=== PATIENT | male | born 1985 | race Caucasian/White ===

== ENCOUNTER → 2016-04-28 | Outpatient (CLI) | payer OTHER ==
[2016-04-28 10:27] LABS: Basophils % (A) 1 %; CH 29.6; CHCM 34.2; Eosinophils # (A) 0.1 k/uL (0-0.7); Eosinophils % (A) 1 %; HCT 45.7 % (39.0-53.0); HGB 15.3 gm/dL (13.0-17.5); Luc # (Auto) 0.18; Luc % (Auto) 3; Lymphocytes # (A) 1.6 k/uL (1.0-4.8); Lymphocytes % (A) 23 %; MCH 29.2 pg (25.0-35.0); MCHC 33.6 g/dL (31.0-37.0); MCV 87.1 fL (80.0-100.0); Mean Platelet Volume 7.4; Monocytes # (A) 0.4 k/uL (0-1.0); Monocytes % (A) 6 %; Neutrophils # (A) 4.8 k/uL (1.3-7.7); Neutrophils % (A) 68 %; RBC 5.24 m/uL (4.30-5.90); RDW 12.5 % (11.5-15.5); WBC 7.2 k/uL (3.8-10.6); WBC (Perox) 7.65
[2016-04-28 10:42] LABS: ALT 54 U/L (21-72); AST 22 U/L (17-59); Alkaline Phosphatase 102 U/L (38-126); Anion Gap 14 mmol/L; Blood Urea Nitrogen 12 mg/dL (9-20); Calcium 9.6 mg/dL (8.4-10.2); Carbon Dioxide 26 mmol/L (22-30); Chloride 106 mmol/L (98-107); Cholesterol 136 mg/dL (<200); Glucose 97 mg/dL (74-99); HDL Cholesterol 38 mg/dL (40-60); Non-African American GFR(MDRD) >60 (>60 ml/min/1.73 sqM); Potassium 4.2 mmol/L (3.5-5.1); Sodium 146 mmol/L (137-145); Total Bilirubin 0.6 mg/dL (0.2-1.3); Total Protein 7.4 g/dL (6.3-8.2); Triglycerides 87 mg/dL (<150)
[2016-04-28 12:22] LABS: Hemoglobin A1C 4.6 % (4.2-6.1)
== END | disposition home or self-care (01) ==
LOC: LABWHC1 09:40
PROVIDERS: ATTEND Family Medicine
DX: Z00.00 Encounter for general adult medical examination without abnormal findings (principal)
CPT/HCPCS: 36415; 80053; 80061; 83036; 84443; 85025; 86677

== ENCOUNTER → 2017-09-12 | Outpatient (CLI) | payer OTHER ==
--- NOTE | 2017-09-12 16:37 | XR ---
EXAMINATION TYPE: XR cervical spine limited DATE OF EXAM: 09/12/2017 TECHNIQUE: 3 views submitted of cervical spine HISTORY: R52 cervical pain COMPARISON: None FINDINGS: The cervical spine is visualized in its entirety from C1 thru the top of T1 level, it is s atisfactory in alignment without evidence of acute fracture or dislocation. The pre-vertebral soft t issue appears within normal limits. The C1-C2 articulation is within normal limits on the open mouth view. IMPRESSION: normal cervical spine
== END | disposition home or self-care (01) ==
LOC: RADXRMAIN 14:01
PROVIDERS: ATTEND Family Medicine
DX: R52 Pain, unspecified (principal)
CPT/HCPCS: 72040

== ENCOUNTER 2018-04-10 06:52 | Day surgery (SDC) | payer OTHER ==
[2018-04-06 14:50] VITALS: BMI 23.1
[~2018-04-10 06:52] MED LIST: LACTATED RINGERS 1,000 ML IV SCH; LIDOCAINE 1% 20 ML VIAL (10MG/ML) FOR IV START INTRADERMA PRN
[2018-04-10 07:15] VITALS: RESP 16; TEMP 98
[2018-04-10] MEDS ORDERED: LIDOCAINE 1% INJ 10MG/ML (20 ML MDV) ONE (07:45)
[2018-04-10] MEDS ORDERED: PROPOFOL 10 MG/ML 20 ML VIAL IV ONE (07:45)
--- NOTE | 2018-04-10 07:47 | P.GSHP ---
History of Present Illness H&P Date: 04/10/18 Chief Complaint: GERD This is a 32-year-old male who presents today for EGD. He's had issues with GERD. 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 Past Anesthesia/Blood Transfusion Reactions: No Reported Reaction Smoking Status: Never smoker - Past Family History Mother Family Medical History: No Reported History Medications and Allergies Home Medications Medication Instructions Recorded Confirmed Type Omeprazole [PriLOSEC] 20 mg PO DAILY 04/21/16 04/10/18 History Allergies Allergy/AdvReac Type Severity Reaction Status Date / Time No Known Allergies Allergy Verified 04/10/18 07:07 Surgical - Exam Vital Signs Temp Pulse Resp BP Pulse Ox 98.0 F 92 16 157/82 98 04/10/18 07:11 04/10/18 07:11 04/10/18 07:11 04/10/18 07:11 04/10/18 07:11 - General well developed, no distress - Eyes PERRL - ENT normal pinna - Neck no masses - Respiratory normal expansion - Cardiovascular Rhythm: regular - Abdomen Abdomen: soft, non tender Assessment and Plan Assessment: GERD. We'll perform EGD.
--- NOTE | 2018-04-10 07:59 | P.OP ---
Date of Procedure: 04/10/18 Preoperative Diagnosis: GERD Postoperative Diagnosis: GERD Procedure(s) Performed: EGD Anesthesia: MAC Surgeon: Gab Navas Pathology: other (Antrum, esophagus) Condition: stable Disposition: PACU Description of Procedure: The patient's placed on the endoscopy table in the lateral position. He received IV sedation. The gastroscope placed oropharynx passed in the esophagus into the stomach. Scope was then placed through the pylorus. The first and second portion him appeared normal. The scope was then brought back the antrum and this was minimal inflamed a biopsies performed. The scope was then retroflexed the remainder of the stomach appeared normal. There was a moderate size hiatal hernia. The distal esophagus appeared inflamed. A biopsies performed. The GE junction was at 38 cm. The proximal esophagus appeared normal. The scope was withdrawn for patient.
[2018-04-10 08:09] VITALS: BP 109/70; PULSE 92
== END 2018-04-10 08:30 | disposition home or self-care (01) ==
LOC: ORWHC2ENDO 06:52
PROVIDERS: ATTEND Surgery
DX: K29.50 Unspecified chronic gastritis without bleeding (principal); K21.9 Gastro-esophageal reflux disease without esophagitis; K44.9 Diaphragmatic hernia without obstruction or gangrene; Z79.899 Other long term (current) drug therapy
CPT/HCPCS: 88305; 43239; J2001; J2704

== ENCOUNTER 2018-04-20 18:32 | Emergency (ER) | payer OTHER ==
[2018-04-20] MEDS ORDERED: ONDANSETRON 4 MG/2 ML VIAL IVP STA (19:55)
[2018-04-20] MEDS ORDERED: SODIUM CHLORIDE 0.9% 1,000 ML IV STA (19:55)
[2018-04-20] MEDS ORDERED: ACETAMINOPHEN IV (For NPO) 1,000 MG in EMPTY BAG 1 BAG IVPB STA (19:56)
--- NOTE | 2018-04-20 19:58 | ED ---
General Adult HPI - General Chief complaint: Abdominal Pain Stated complaint: rt sided pain Time Seen by Provider: 04/20/18 19:45 Source: patient, RN notes reviewed Mode of arrival: ambulatory Limitations: no limitations - History of Present Illness Initial comments: Patient is a 32-year-old male presented to the emergency room today with a chief complaint of right-sided abdominal pain over the last 3 days. States had decreased appetite with some nausea. Denies any vomiting. States had a difficult time with bowel movement. Patient states pains been increase in the past 3 days. States never had pain like this in the past. Describes it as sharp. Denies any other complaints or symptoms. Patient denies any recent fever , chills, shortness of breath, chest pain, back pain, vomiting, numbness or tingling, headaches or visual changes, or any other complaints. - Related Data Home Medications Medication Instructions Recorded Confirmed Omeprazole [PriLOSEC] 20 mg PO DAILY 04/21/16 04/20/18 Allergies Allergy/AdvReac Type Severity Reaction Status Date / Time No Known Allergies Allergy Verified 04/20/18 20:04 Review of Systems ROS Statement: Those systems with pertinent positive or pertinent negative responses have been documented in the HPI. ROS Other: All systems not noted in ROS Statement are negative. 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 Eye: There is normal conjunctiva bilaterally. No signs of icterus. Ears, nose, mouth and throat: There are moist mucous membranes and no oral lesions. Neck: The neck is supple, there is no tenderness or JVD. Cardiovascular: There is a regular rate and rhythm. No murmur, rub or gallop is appreciated. Respiratory: Lungs are clear to auscultation, respirations are non-labored, breath sounds are equal. No wheezes, stridor, rales, or rhonchi. Gastrointestinal: Abdomen soft on palpation. Patient has tenderness right side of the abdomen both upper and lower quadrants. No rebound, guarding or CVA tenderness. Musculoskeletal: Normal ROM, no tenderness. Neurological: A&O x 3. CN II-XII intact, There are no obvious motor or sensory deficits. Coordination appears grossly intact. Speech is normal. Skin: Skin is warm and dry and no rashes or lesions are noted. Psychiatric: Cooperative, appropriate mood & affect, normal judgment. Limitations: no limitations Course Vital Signs 04/20/18 04/20/18 18:36 21:20 Temperature 98 F 98.2 F Pulse Rate 91 97 Respiratory 18 16 Rate Blood Pressure 138/86 132/80 O2 Sat by Pulse 99 97 Oximetry Medical Decision Making - Medical Decision Making Patient examined at this time shows no signs of distress. Resting comfortably. Patient's abdomen is soft on reexamination. Patient labs been reviewed unremarkable. Vitals are stable. CT the abdomen and pelvis showing a normal appendix no other acute abnormalities. Results were discussed with patient. Patient is advised close follow-up the family doctor in the next 2 days returning if any symptoms increase or worsen. He states states understanding and is in agreement. - Lab Data Result diagrams: 04/20/18 20:37 04/20/18 20:37 Lab Results 04/20/18 04/20/18 04/20/18 Range/Units 20:35 20:37 20:37 WBC 8.8 (3.8-10.6) k/uL RBC 5.03 (4.30-5.90) m/uL Hgb 14.8 (13.0-17.5) gm/dL Hct 42.6 (39.0-53.0) % MCV 84.7 (80.0-100.0) fL MCH 29.5 (25.0-35.0) pg MCHC 34.8 (31.0-37.0) g/dL RDW 12.6 (11.5-15.5) % Plt Count 241 (150-450) k/uL Neutrophils % 76 % Lymphocytes % 18 % Monocytes % 4 % Eosinophils % 1 % Basophils % 0 % Neutrophils # 6.7 (1.3-7.7) k/uL Lymphocytes # 1.6 (1.0-4.8) k/uL Monocytes # 0.3 (0-1.0) k/uL Eosinophils # 0.1 (0-0.7) k/uL Basophils # 0.0 (0-0.2) k/uL Sodium 140 (137-145) mmol/L Potassium 3.8 (3.5-5.1) mmol/L Chloride 108 H (98-107) mmol/L Carbon Dioxide 26 (22-30) mmol/L Anion Gap 6 mmol/L BUN 10 (9-20) mg/dL Creatinine 0.93 (0.66-1.25) mg/dL Est GFR (CKD-EPI)AfAm >90 (>60 ml/min/1.73 sqM) Est GFR (CKD-EPI)NonAf >90 (>60 ml/min/1.73 sqM) Glucose 116 H (74-99) mg/dL Calcium 9.5 (8.4-10.2) mg/dL Total Bilirubin 0.3 (0.2-1.3) mg/dL AST 23 (17-59) U/L ALT 44 (21-72) U/L Alkaline Phosphatase 66 (38-126) U/L Total Protein 5.9 L (6.3-8.2) g/dL Albumin 3.6 (3.5-5.0) g/dL Amylase 45 (30-110) U/L Lipase 125 (23-300) U/L Urine Color Light Yellow Urine Appearance Clear (Clear) Urine pH 6.0 (5.0-8.0) Ur Specific Metcalfe 1.010 (1.001-1.035) Urine Protein Negative (Negative) Urine Glucose (UA) Negative (Negative) Urine Ketones Negative (Negative) Urine Blood Negative (Negative) Urine Nitrite Negative (Negative) Urine Bilirubin Negative (Negative) Urine Urobilinogen <2.0 (<2.0) mg/dL Ur Leukocyte Esterase Negative (Negative) Disposition Clinical Impression: Abdominal pain Disposition: HOME SELF-CARE Condition: Good Instructions: Abdominal Pain (ED) Additional Instructions: Please use medication as discussed. Please follow-up with family doctor in the next 2 days. Please return to emergency room if the symptoms increase or worsen or for any other concerns. Is patient prescribed a controlled substance at d/c from ED?: No Referrals: Pelon Yang MD [Primary Care Provider] - 1-2 days Time of Disposition: 21:34
[2018-04-20 20:53] LABS: Basophils % (A) 0 %; Eosinophils # (A) 0.1 k/uL (0-0.7); Eosinophils % (A) 1 %; HCT 42.6 % (39.0-53.0); HGB 14.8 gm/dL (13.0-17.5); Lymphocytes # (A) 1.6 k/uL (1.0-4.8); Lymphocytes % (A) 18 %; MCH 29.5 pg (25.0-35.0); MCHC 34.8 g/dL (31.0-37.0); MCV 84.7 fL (80.0-100.0); Mean Platelet Volume 7.9; Monocytes # (A) 0.3 k/uL (0-1.0); Monocytes % (A) 4 %; Neutrophils # (A) 6.7 k/uL (1.3-7.7); Neutrophils % (A) 76 %; Platelet Count 241 k/uL (150-450); RBC 5.03 m/uL (4.30-5.90); RDW 12.6 % (11.5-15.5); WBC 8.8 k/uL (3.8-10.6)
[2018-04-20 20:55] LABS: Appearance,Urine Clear (Clear); Bilirubin,Urine Negative (Negative); Blood,Urine Negative (Negative); Color,Urine Light Yellow; Glucose,Urine (UA) Negative (Negative); Ketones,Urine Negative (Negative); Leukocyte Esterase,Urine Negative (Negative); Nitrite,Urine Negative (Negative); Protein,Urine Negative (Negative); Urobilinogen,Urine <2.0 mg/dL (<2.0)
[2018-04-20 21:06] LABS: ALT 44 U/L (21-72); AST 23 U/L (17-59); Albumin 3.6 g/dL (3.5-5.0); Alkaline Phosphatase 66 U/L (38-126); Amylase 45 U/L (30-110); Anion Gap 6 mmol/L; Blood Urea Nitrogen 10 mg/dL (9-20); Calcium 9.5 mg/dL (8.4-10.2); Carbon Dioxide 26 mmol/L (22-30); Chloride 108 mmol/L (98-107); Glucose 116 mg/dL (74-99); Lipase 125 U/L (23-300); Potassium 3.8 mmol/L (3.5-5.1); Sodium 140 mmol/L (137-145); Total Bilirubin 0.3 mg/dL (0.2-1.3); Total Protein 5.9 g/dL (6.3-8.2)
--- NOTE | 2018-04-20 21:14 | CT ---
EXAMINATION TYPE: CT abdomen pelvis w con DATE OF EXAM: 04/20/2018 COMPARISON: None HISTORY: RLQ pain, hx of hernia CT DLP: 709 mGycm Automated exposure control for dose reduction was used. TECHNIQUE: Helical acquisition of images was performed from the lung bases through the pelvis. CONTRAST: Performed without Oral Contrast and with IV Contrast, patient injected with 100 mL of Isovue 300. FINDINGS: Lung bases are clear. There is no pleural effusion. Heart size is normal. There is no pericardial eff usion. There is small hiatal hernia. The remainder of the stomach is normal. Liver spleen pancreas gallbladd er appear normal. Bile ducts are not dilated. There is no adrenal mass. Kidneys show satisfactory con trast opacification. There is no hydronephrosis. Ureters are not dilated. There is no retroperitoneal adenopathy. Appendix appears normal. Bladder distends smoothly. There is no inguinal hernia. There is no free fluid in the pelvis. I see n o intestinal wall thickening. There are no dilated loops. There is no mesenteric edema. There is no e vidence of free air. Lumbar vertebra have normal alignment. Disc spaces are normal. Posterior elements are intact. There i s no compression fracture. Bony pelvis is intact. IMPRESSION: NEGATIVE CT SCAN OF THE ABDOMEN AND PELVIS. NORMAL APPENDIX. NO EVIDENCE OF A HERNIA.
[2018-04-20 21:21] VITALS: BP 132/80; PULSE 97; RESP 16; TEMP 98.2
== END 2018-04-20 22:02 | disposition home or self-care (01) ==
LOC: EC 18:32
DX: R10.9 Unspecified abdominal pain (principal); R11.0 Nausea; R63.8 Other symptoms and signs concerning food and fluid intake; K21.9 Gastro-esophageal reflux disease without esophagitis; Z79.899 Other long term (current) drug therapy
CPT/HCPCS: 36415; 80053; 82150; 83690; 85025; 81003; 74177; 99284; 96365; 96375; J2405; J0131; Q9967

== ENCOUNTER → 2018-05-03 | Outpatient (CLI) | payer OTHER ==
[2018-05-03 13:17] LABS: Basophils % (A) 1 %; Eosinophils # (A) 0.1 k/uL (0-0.7); Eosinophils % (A) 1 %; HCT 47.2 % (39.0-53.0); HGB 16.3 gm/dL (13.0-17.5); Lymphocytes % (A) 23 %; MCH 29.4 pg (25.0-35.0); MCHC 34.5 g/dL (31.0-37.0); MCV 85.1 fL (80.0-100.0); Mean Platelet Volume 7.7; Monocytes # (A) 0.5 k/uL (0-1.0); Monocytes % (A) 5 %; Neutrophils % (A) 69 %; Platelet Count 272 k/uL (150-450); RBC 5.55 m/uL (4.30-5.90); RDW 12.7 % (11.5-15.5); WBC 8.8 k/uL (3.8-10.6)
== END | disposition home or self-care (01) ==
LOC: LABPAT 11:56
PROVIDERS: ATTEND Surgery
DX: Z01.812 Encounter for preprocedural laboratory examination (principal); D64.9 Anemia, unspecified; K21.0 Gastro-esophageal reflux disease with esophagitis
CPT/HCPCS: 36415; 85025

== ENCOUNTER 2018-05-10 08:16 | Observation (INO) | payer OTHER ==
[~2018-05-10 08:16] MED LIST changes: +DEXAMETHASONE SOD PHOSPHATE 10 MG/ML 1 ML VIAL IV ONE; +HEPARIN SODIUM,PORCINE 5,000 UNIT/ML 1 ML VIAL SQ ONE; +HYDROmorphone 0.5 MG/0.5 ML SYRINGE IVP PRN; -LACTATED RINGERS 1,000 ML IV SCH; +MIDAZOLAM (PF) 2 MG/2 ML VIAL IV PRN; +ONDANSETRON 4 MG/2 ML VIAL IVP ONE; +SCOPOLAMINE 1.5MG/72HR PATCH TRANSDERM ONE; +ceFAZolin IN SWFI 2 GM/20 ML SYRINGE IVP ONE
[2018-05-10] MEDS: LACTATED RINGERS 1,000 ML IV SCH (09:32)
--- NOTE | 2018-05-10 10:38 | P.GSHP ---
History of Present Illness H&P Date: 05/10/18 Chief Complaint: GERD This a 33-year-old male who presents today for laparoscopic Tae location. He 's had issues with GERD. The patient has had long-standing problems with reflux esophagitis. The patient underwent recent EGD is found have evidence of esophagitis. Patient has been well informed on the procedure of laparoscopic Tae fundoplication. The patient is aware the risk of the conversion to the open procedure, risk of injury to the stomach, liver and spleen. The patient is also a risk of recurrent GERD and dysphagia symptoms. The patient understands there is a postoperative diet of full liquids for 2 weeks after surgery. 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 Past Anesthesia/Blood Transfusion Reactions: No Reported Reaction Past Alcohol Use History: None Reported - Past Family History Mother Family Medical History: No Reported History Medications and Allergies Home Medications Medication Instructions Recorded Confirmed Type Omeprazole [PriLOSEC] 20 mg PO QAM 04/21/16 05/10/18 History Allergies Allergy/AdvReac Type Severity Reaction Status Date / Time No Known Allergies Allergy Verified 05/10/18 09:13 Surgical - Exam Vital Signs Temp Pulse Resp BP Pulse Ox 98.3 F 91 18 138/87 95 05/10/18 09:02 05/10/18 09:02 05/10/18 09:02 05/10/18 09:02 05/10/18 09:02 - General well developed, no distress - Eyes PERRL - ENT normal pinna - Neck no masses - Respiratory normal expansion - Cardiovascular Rhythm: regular - Abdomen Abdomen: soft, non tender Assessment and Plan Assessment: GERD. We'll perform laparoscopic Tae fundal plication.
[2018-05-10] MEDS ORDERED: fentaNYL (PF) 50 MCG/ML 2 ML AMP ONE (10:41)
[2018-05-10] MEDS ORDERED: ROCURONIUM BROMIDE 10 MG/ML 10 ML VIAL IV ONE (10:41)
[2018-05-10] MEDS ORDERED: GLYCOPYRROLATE 0.2 MG/ML 2 ML VIAL ONE (10:41)
[2018-05-10] MEDS ORDERED: PROPOFOL 10 MG/ML 20 ML VIAL IV ONE (10:41)
[2018-05-10] MEDS ORDERED: NEOSTIGMINE 1 MG/ML 10 ML VIAL ONE (10:41)
[2018-05-10] MEDS ORDERED: SUCCINYLCHOLINE CHLORIDE 100 MG/5 ML SYR IV ONE (10:41)
[2018-05-10] MEDS ORDERED: LIDOCAINE 1% INJ 10MG/ML (20 ML MDV) ONE (10:41)
[2018-05-10] MEDS ORDERED: MIDAZOLAM 2 MG/2 ML VIAL ONE (10:41)
[2018-05-10] MEDS ORDERED: HYDROmorphone (PF) 1 MG/ML ONE (10:41)
[2018-05-10] MEDS ORDERED: BUPIVACAIN-EPI 0.25%-1:200,000 30 ML VIAL SQ ONE ×2 (11:08)
[2018-05-10] MEDS ORDERED: ONDANSETRON 4 MG/2 ML VIAL IVP PRN (11:38)
--- NOTE | 2018-05-10 11:42 | P.OP ---
Date of Procedure: 05/10/18 Preoperative Diagnosis: GERD Postoperative Diagnosis: GERD Procedure(s) Performed: Laparoscopic Tae fundal plication Anesthesia: DELMA Surgeon: Gab Navas Estimated Blood Loss (ml): 5 Pathology: none sent Condition: stable Disposition: PACU Description of Procedure: HThe patient was placed on the operating table in the supine position. The patient received general anesthesia. And was placed in dorsal lithotomy position. The patient was prepped and draped in the usual sterile fashion. The skin incision sites were anesthetized with 1% local Xylocaine. The skin was incised in the left periumbilical area and then using a blade less 5 mm trocar under direct visualization panel cavity was entered. After adequate insufflation the laparoscope was then placed into the peritoneal cavity. Next a 5 mm trochars placed in the right epigastric position. Another 5 millimeter trocar the right lateral position. Another 5 millimeter trocar in the left lateral position a 5 mm trocar is placed in the left epigastric position. And then the initial 5 mm trocar was exchanged for a 10 mm trocar. The left lateral lobe liver was retracted. The hernia was seen. The crural defect was then dissected using the Harmonic scissors device. A 360 crural dissection was performed the esophagus stomach was reduced back into the peritoneal Cavity. The crural defect was then closed using 2-0 Ethibond suture. Next the fundus of the stomach was mobilized using the Hodges scissors device. and then a 58-St Lucian bougie dilator was placed oropharynx passed into the esophagus and stomach the fundal plication wrap was then performed by grasping the fundus posteriorly and bringing it around the esophagus and stomach fundoplication was then performed using 2-0 Ethibond suture. Care was taken that the fundal location rested over top of the intra-abdominal esophagus. There was no injury seen to the stomach or esophagus. The dilator was then withdrawn. The abdomen was irrigated there is no bleeding seen. The trochars were then withdrawn and then skin incision sites were closed using 3-0 Monocryl suture Steri-Strips are applied. Patient thought procedure well and sent to recovery room in stable condition.
[2018-05-10] MEDS: MEPERIDINE 50 MG/ML SYRINGE IVP ONE ×2 (12:29→12:34)
[2018-05-10] MEDS ORDERED: diphenhydrAMINE 50 MG/ML 1 ML VIAL IVP ONE (12:34)
[2018-05-10 14:00] VITALS: BMI 22.9
[2018-05-10] MEDS ORDERED: LACTATED RINGERS 1,000 ML IV ONE (16:30)
[2018-05-10] MEDS: METOCLOPRAMIDE 5 MG/ML 2 ML VIAL IVP SCH ×2 (16:59→17:28)
[2018-05-10] MEDS: D5-0.45% NACL WITH KCL 20MEQ/L 1,000 ML IV SCH ×2 (16:59→17:26)
[2018-05-10] MEDS: HYDROmorphone 0.5 MG/0.5 ML SYRINGE IVP PRN ×2 (17:37→21:16)
[2018-05-10] MEDS: FAMOTIDINE 20 MG/2 ML VIAL IV SCH (21:17)
--- NOTE | 2018-05-10 21:21 | FL ---
SINGLE CONTRAST ESOPHAGRAM: CLINICAL HISTORY: 33-year-old male rule out leak/obstruction status post Tae fundoplication TECHNIQUE: Single contrast exam performed with 50 ml Isovue-370 contrast. Total fluoroscopy time: 1 minute. Total images: 17 FINDINGS: The patient swallowed oral contrast without difficulty or delay. However, the patient was instructed to take only 2 small swallows as there is a relatively severe obstruction at the GE junction. There is recurrent peristalsis and resulted in intraesophageal reflux in the distal esophagus. After a few minutes of waiting, a transient trace trickle of contrast is seen extending into the stomach. The kim unt of contrast traversing the GE junction is too small to assess for leak. Small amount of free air below the right hemidiaphragm. IMPRESSION: Relatively severe obstruction at the GE junction. The patient was instructed to stop after only 2 sma ll swallows. Unable to adequately assess for leak. Small amount of postsurgical free air on the right . Recommend repeat exam tomorrow after there has been time for postsurgical edema to decrease.
[2018-05-11] MEDS: HYDROmorphone 0.5 MG/0.5 ML SYRINGE IVP PRN ×8 (00:36→23:58)
[2018-05-11] MEDS: METOCLOPRAMIDE 5 MG/ML 2 ML VIAL IVP SCH ×5 (00:37→23:58)
[2018-05-11] MEDS: D5-0.45% NACL WITH KCL 20MEQ/L 1,000 ML IV SCH ×3 (00:41→18:12)
--- NOTE | 2018-05-11 06:04 | CONS ---
CONSULTATION SUBJECTIVE: A 33-year-old white male with GERD, status post Tae procedure, has some pressure in the chest. REVIEW OF SYSTEMS: Fourteen-point review of systems negative except for mentioned in HPI. PHYSICAL EXAM: CARDIOVASCULAR: S1, S2. LUNGS: Transmitted upper airway sounds. HEMATOLOGY: Negative Homans. PSYCH: Fair mood and affect. OPHTHALMOLOGIC: Pupils equal, round, reactive to light and accommodation. ASSESSMENT: Gastroesophageal reflux disease, status post Tae. Continue home medications. Possible discharge home in the morning. MMODL / IJN: [id number] /
[2018-05-11] MEDS: LACTATED RINGERS 1,000 ML IV SCH (07:28)
[2018-05-11] MEDS: FAMOTIDINE 20 MG/2 ML VIAL IV SCH ×2 (07:31→20:51)
[2018-05-11] MEDS: ENOXAPARIN 40 MG/0.4 ML SYRINGE SQ SCH (07:32)
[2018-05-11 07:56] LABS: Basophils % (A) 0 %; Eosinophils % (A) 0 %; HCT 41.8 % (39.0-53.0); HGB 14.1 gm/dL (13.0-17.5); Lymphocytes # (A) 0.9 k/uL (1.0-4.8); Lymphocytes % (A) 7 %; MCH 29.6 pg (25.0-35.0); MCHC 33.7 g/dL (31.0-37.0); MCV 87.8 fL (80.0-100.0); Mean Platelet Volume 7.6; Monocytes # (A) 0.7 k/uL (0-1.0); Monocytes % (A) 6 %; Neutrophils # (A) 10.5 k/uL (1.3-7.7); Neutrophils % (A) 87 %; Platelet Count 200 k/uL (150-450); RBC 4.76 m/uL (4.30-5.90); RDW 12.9 % (11.5-15.5); WBC 12.2 k/uL (3.8-10.6)
--- NOTE | 2018-05-11 10:05 | FL ---
EXAMINATION TYPE: FL esophagus cervic/pharynx DATE OF EXAM: 05/11/2018 LIMITED UGI-ESOPHAGRAM: CLINICAL HISTORY: Post Michele fundoplication, significant hesitancy gastroesophageal junction TECHNIQUE: Limited esophagram is performed utilizing Omnipaque 350. Fluoroscopy time: 36 seconds Images: 47 FINDINGS: The patient swallowed contrast without difficulty or delay. Contrast passes through the ga stroesophageal junction with only moderate hesitancy. There is emptying into the stomach. No evidence of extravasation is evident. Note is made of small amount of free air under the right diaphragm post surgical in nature. IMPRESSION: 1. Moderate hesitancy passing through the Michele fundoplication. 2. No extravasation evident. 3. Minimal free air under the right diaphragm.
[2018-05-11] MEDS ORDERED: SODIUM CHLORIDE 0.9% 1,000 ML IV ONE (10:15)
[2018-05-11] MEDS ORDERED: IPRATROPIUM-ALBUTEROL 3 ML NEB INHALATION STA (10:16)
--- NOTE | 2018-05-11 11:08 | P.PN ---
Subjective Progress Note Date: 05/11/18 CHIEF COMPLAINT: GERD, status post Tae fundoplication HISTORY OF PRESENT ILLNESS: 33-year-old male who underwent Tae fundoplication. POD #1. Patient underwent esophagram yesterday which revealed relatively severe obstruction to the GE junction. Possibly related to postsurgical edema. Patient repeat esophagram this morning with improvement. Patient is tolerating clear liquids. He reports occasional nausea. Passing flatus. Denies BM. Reports pain is tolerable. He has been ambulating. WBC 12.2. He remains tachycardic with a rate in the 110s. He is afebrile. PHYSICAL EXAM: VITAL SIGNS: Currently stable. GENERAL: Well-developed in no acute distress. HEENT: No sclera icterus. Extraocular movements grossly intact. Moist buccal mucosa. Head is atraumatic, normocephalic. Hears conversational speech. No nasal drainage. NECK: Supple without lymphadenopathy. CHEST: Non-labored respirations and equal bilateral excursions. CARDIOVASCULAR: Regular rate with regular rhythm. Palpable 2+ radial pulses. ABDOMEN: Soft. Nondistended. Surgical sites without drainage or signs of infection. MUSCULOSKELETAL: No clubbing, cyanosis or edema. NEUROLOGIC: No focal or lateralizing signs. Cranial nerves II through XII grossly intact. PSYCH: Alert and oriented x 3 SKIN: Well perfused. Good skin turgor. ASSESSMENT: 1. GERD, s/p Tae fundoplication, POD #1 2. Leukocytosis 3. Tachycardia, suspect secondary to atelectasis and/or dehydration PLAN: Continue clear liquid diet. 1L bolus, then continue IV fluids at 125cc/hr. Pulmonary toileting. Patient encouraged to use incentive spirometer 10 times an hour. Increase activity as tolerated. Pain control. Will repeat CBC in AM. Monitor tachycardia. Possible discharge home tomorrow. Nurse practitioner note has been reviewed by physician. Signing provider agrees with the documented findings, assessment, and plan of care. Objective - Vital Signs Vital signs: Vital Signs Temp 98.0 F 05/11/18 07:21 Pulse 118 H 05/11/18 07:22 Resp 18 05/11/18 07:22 BP 146/97 05/11/18 07:21 Pulse Ox 97 05/11/18 07:21 Intake & Output 05/10/18 05/11/18 05/11/18 18:59 06:59 18:59 Intake Total 1150 2900 Output Total 5 Balance 1145 2900 Weight 81 kg Intake: IV 1150 Intake, IV Titration 2000 Amount D5-0.45% NaCl with KCl 2000 20Meq/l 1,000 ml @ 125 mls/hr IV .Q8H [facility] Rx#: [id number] Oral 900 Output: Estimated Blood Loss 5 Other: Voiding Method Toilet Toilet Urinal # Voids 3 1 - Labs CBC & Chem 7: 05/11/18 06:54 Labs: Abnormal Lab Results - Last 24 Hours (Table) 05/11/18 Range/Units 06:54 WBC 12.2 H (3.8-10.6) k/uL Neutrophils # 10.5 H (1.3-7.7) k/uL Lymphocytes # 0.9 L (1.0-4.8) k/uL
[2018-05-11] MEDS ORDERED: SODIUM CHLORIDE 0.9% 500 ML 250 ML IV ONE (19:45)
[2018-05-12] MEDS: HYDROmorphone 0.5 MG/0.5 ML SYRINGE IVP PRN ×2 (03:40→06:32)
[2018-05-12] MEDS: D5-0.45% NACL WITH KCL 20MEQ/L 1,000 ML IV SCH ×2 (03:42→11:30)
[2018-05-12 06:29] VITALS: RESP 16
[2018-05-12] MEDS: METOCLOPRAMIDE 5 MG/ML 2 ML VIAL IVP SCH ×2 (06:32→13:10)
[2018-05-12] MEDS: LACTATED RINGERS 1,000 ML IV SCH (06:37)
[2018-05-12 08:25] LABS: Basophils % (A) 0 %; Eosinophils # (A) 0.1 k/uL (0-0.7); Eosinophils % (A) 1 %; HCT 41.2 % (39.0-53.0); HGB 13.5 gm/dL (13.0-17.5); Lymphocytes # (A) 1.1 k/uL (1.0-4.8); Lymphocytes % (A) 15 %; MCH 28.2 pg (25.0-35.0); MCHC 32.7 g/dL (31.0-37.0); MCV 86.1 fL (80.0-100.0); Mean Platelet Volume 6.8; Monocytes # (A) 0.6 k/uL (0-1.0); Monocytes % (A) 8 %; Neutrophils # (A) 5.7 k/uL (1.3-7.7); Neutrophils % (A) 74 %; Platelet Count 202 k/uL (150-450); RBC 4.79 m/uL (4.30-5.90); RDW 12.5 % (11.5-15.5); WBC 7.6 k/uL (3.8-10.6)
[2018-05-12] MEDS: HYDROcodone/APAP 5-325MG 1 EACH TAB PO PRN ×2 (09:38→14:30)
[2018-05-12] MEDS: ENOXAPARIN 40 MG/0.4 ML SYRINGE SQ SCH (09:39)
[2018-05-12] MEDS: FAMOTIDINE 20 MG/2 ML VIAL IV SCH (09:39)
--- NOTE | 2018-05-12 10:07 | P.PN ---
Subjective Progress Note Date: 05/12/18 Principal diagnosis: Hiatal hernia Patient doing better today. Tachycardia seems improved. Heart rate 101 on last check. Patient has no pain. He is taking some Dilaudid for his neck discomfort he states he has chronically in its related and exacerbated from the bed that he is in he states. He would like to go home today. Tolerating clears. Upper GI shows no leak. White blood cell count normal. Objective - Vital Signs Vital signs: Vital Signs Temp 98.0 F 05/12/18 06:28 Pulse 101 H 05/12/18 09:43 Resp 16 05/12/18 06:28 BP 128/86 05/12/18 06:30 Pulse Ox 95 05/12/18 06:28 Intake & Output 05/11/18 05/12/18 05/12/18 18:59 06:59 18:59 Intake Total 2125 Output Total 700 Balance 1425 Intake: IV 1000 D5-0.45% NaCl with KCl 1000 20Meq/l 1,000 ml @ 125 mls/hr IV .Q8H [facility] Rx#: [id number] Intake, IV Titration 1125 Amount D5-0.45% NaCl with KCl 875 20Meq/l 1,000 ml @ 125 mls/hr IV .Q8H [facility] Rx#: [id number] Sodium Chloride 0.9% 500 250 ml 250 ml @ 999 mls/hr IV .Q16M [facility] Rx#:[id number] Output: Urine 700 Other: Voiding Method Toilet Toilet # Voids 1 - Exam Abdomen: Soft, nontender, nondistended, incisions clean and dry - Labs CBC & Chem 7: 05/12/18 07:25 Assessment and Plan (1) Status post laparoscopic Tae fundoplication Narrative/Plan: Will plan discharge today if patient's heart rate stays in the low 100 range or lower. Continue Tae liquid diet. Follow-up with Dr. Navas 1 week. Current Visit: Yes Status: Acute Code(s): Z98.890 - OTHER SPECIFIED POSTPROCEDURAL STATES SNOMED Code(s): 241087317
[2018-05-12 13:56] VITALS: BP 142/93; PULSE 103; TEMP 98.2
--- NOTE | 2018-05-12 21:03 | PN ---
PROGRESS NOTE SUBJECTIVE: A white male comes in today status post Michele procedure. He has had tachycardia and hypertension for the last 2 days since surgery. Blood pressure is in the normal range now. Pulse rate is 100 to 103. He feels much better. OBJECTIVE: Cardiovascular S1, S2. Lungs clear. GI soft. ASSESSMENT: 1. Status post Michele. 2. Hypertension acceleration. 3. Tachycardia. All secondary to surgery. He is improving from medical standpoint. Cleared for discharge today. MMODL / IJN: [id number] /
== END 2018-05-12 16:30 | disposition home or self-care (01) ==
LOC: OR 08:16 → 4SSUR 12:50 → OR 22:15 → 4SSUR 22:16
PROVIDERS: ADMIT Surgery; ATTEND Surgery
DX: K21.0 Gastro-esophageal reflux disease with esophagitis (principal); K44.9 Diaphragmatic hernia without obstruction or gangrene; I10 Essential (primary) hypertension; R07.89 Other chest pain; R11.0 Nausea; R00.0 Tachycardia, unspecified; D72.829 Elevated white blood cell count, unspecified; Z79.899 Other long term (current) drug therapy
CPT/HCPCS: 94640; 85025 ×2; 74210 ×2; 43280; G0378 ×3; J1200; J1644; J1100; J2765 ×3; J2175; J2405 ×2; J1650 ×2; J1170 ×3; J0690; Q9967 ×2

== ENCOUNTER → 2018-10-11 | Outpatient (CLI) | payer OTHER ==
[2018-10-11 11:46] LABS: HCT 42.5 % (39.0-53.0); HGB 14.6 gm/dL (13.0-17.5); MCH 29.2 pg (25.0-35.0); MCHC 34.3 g/dL (31.0-37.0); MCV 85.1 fL (80.0-100.0); Platelet Count 320 k/uL (150-450); RDW 13.1 % (11.5-15.5); WBC 8.6 k/uL (3.8-10.6)
[2018-10-11 13:31] LABS: Erythrocyte Sedimentation Rate 4 mm/hr (0-15)
[2018-10-11 18:55] LABS: ALT 40 U/L (10-49); AST 26 U/L (14-35); African American GFR (CKD) 131.4 (60.0-200.0); Albumin/Globulin Ratio 2.14 (1.60-3.17); Alkaline Phosphatase 101 U/L (41-126); BUN/Creat Ratio 14.44 Ratio (12.00-20.00); C Reactive Protein <0.4 mg/dL (0.0-0.8); Calcium 9.7 mg/dL (8.7-10.3); Carbon Dioxide 24.3 mmol/L (21.6-31.8); Chloride 109 mmol/L (96-109); Globulin 2.1 g/dL (1.6-3.3); Glucose 88 mg/dL (70-110); Potassium 3.9 mmol/L (3.5-5.5); Sodium 141 mmol/L (135-145); Total Bilirubin 0.7 mg/dL (0.3-1.2); Total Protein 6.6 g/dL (6.2-8.2)
[2018-10-11 20:27] LABS: Gliadin AB IgA, Unit 0.7 U/mL
== END | disposition home or self-care (01) ==
LOC: LABWHC1 10:22
PROVIDERS: ATTEND Internal Medicine
DX: R19.4 Change in bowel habit (principal)
CPT/HCPCS: 36415; 80053; 83516; 83630; 83993; 84439; 84443; 85027; 85652; 86140; 87045; 87046; 87328; 87329

== ENCOUNTER 2018-11-22 06:58 | Day surgery (SDC) | payer OTHER ==
[2018-11-21 08:41] VITALS: BMI 21.5
[~2018-11-22 06:58] MED LIST changes: -DEXAMETHASONE SOD PHOSPHATE 10 MG/ML 1 ML VIAL IV ONE; -HEPARIN SODIUM,PORCINE 5,000 UNIT/ML 1 ML VIAL SQ ONE; -HYDROmorphone 0.5 MG/0.5 ML SYRINGE IVP PRN; +LACTATED RINGERS 1,000 ML IV SCH; -MIDAZOLAM (PF) 2 MG/2 ML VIAL IV PRN; -ONDANSETRON 4 MG/2 ML VIAL IVP ONE; -SCOPOLAMINE 1.5MG/72HR PATCH TRANSDERM ONE; -ceFAZolin IN SWFI 2 GM/20 ML SYRINGE IVP ONE
[2018-11-22] MEDS ORDERED: LACTATED RINGERS 1,000 ML IV ONE (07:05)
[2018-11-22] MEDS ORDERED: LIDOCAINE 1% INJ 10MG/ML (20 ML MDV) ONE (07:30)
[2018-11-22] MEDS ORDERED: PROPOFOL 10 MG/ML 20 ML VIAL IV ONE (07:30)
[2018-11-22 08:23] VITALS: RESP 17
--- NOTE | 2018-11-22 08:24 | P.PCN ---
Date of Procedure: 11/22/18 Description of Procedure: Brief history: Patient is a pleasant scheduled for an elective upper endoscopy as well as colonoscopy as a part of evaluation of esophageal dysphagia and change in bowel habits. The patient denies any reflux since Tae fundoplication but does report intermittent solid food dysphagia and solid taste in his mother in the mornings. Prior to Tae the patient underwent an EGD on 04/10/2018 with esophagitis and gastritis noted and biopsies negative for H. pylori. The patient also has 17 months of increase in bowel movements with 3-8 loose bowel movements daily previously baseline was 2 bowel movements per day. Does report some intermittent dark bowel movements but no gross blood noted. Patient also states he's had 20 pound weight loss since 04/2018 reports abdominal pain described as sharp and dull in quality in the upper abdomen lasting 30 minutes in duration. He was started on Bentyl therapy with some improvement. 2 uncles with colon cancer and 1 paternal uncle with ulcerative colitis. Procedure performed: Esophagogastroduodenoscopy with biopsy Colonoscopy with biopsy Estimated blood loss: Minimal. Preoperative diagnosis: Anesthesia: MAC Procedure: After informed consent was obtained from the patient was brought into the endoscopy unit and IV sedation was administered by anesthesia under continuous monitoring. Initially upper endoscopy was done. The Olympus GF 190 video endoscope was inserted inserted into the mouth and esophagus intubated without any difficulty and was gradually advanced into the stomach and duodenum and carefully examined. The bulb and second part of the duodenum appeared normal, with biopsies taken. The scope was then withdrawn into the stomach adequately insufflated with air and upon careful examination the antrum and body, cardia and fundus appeared normal, except for some mild scattered erythema and linear fashion in the antrum and body suggestive of mild gastritis with biopsies taken. The scope was then withdrawn into the esophagus. The GE junction was located at 40 cm to the incisors, with anatomy consistent with prior Tae fundoplication noted. It appeared regular with no erythema erosions or ulcerations. Rest of the esophagus appeared normal. Patient tolerated the procedure well. At this time the patient continued to remain sedation. Initial digital rectal examination was normal. Olympus CF 190 video colonoscope was then inserted into the rectum and gradually advanced to the cecum without any difficulty. Careful examination was performed as the scope was gradually being withdrawn. The prep was excellent. The terminal ileum was intubated and appeared normal with biopsies taken. The cecum, ascending colon, transverse colon, descending colon, sigmoid colon and rectum appeared normal, with biopsies of the right colon and left colon. Retroflexion was performed in the rectum and no lesions were noted for mild internal hemorrhoids. Patient tolerated the procedure well. Impression: 1. No esophageal erythema, erosions or other findings to explain dysphagia. Mild gastritis antrum and body, biopsied. Duodenal biopsies. 2. Normal-appearing terminal ileum and colon from the rectum to cecum, with biopsies of the terminal ileum, right colon and left colon. Mild internal hemorrhoids. Recommendations: Findings of this examination were discussed with the patient as well as his aunt. Okay to resume diet. Okay to continue current medical management with dicyclomine and loperamide as needed. Await pathology from biopsies. Follow up in gastroenterology clinic as previously scheduled.
[2018-11-22 08:41] VITALS: BP 129/82; PULSE 77
== END 2018-11-22 09:16 | disposition home or self-care (01) ==
LOC: ORWHC2ENDO 06:58
PROVIDERS: ATTEND Internal Medicine
DX: R13.10 Dysphagia, unspecified (principal); K29.50 Unspecified chronic gastritis without bleeding; K64.8 Other hemorrhoids; R19.4 Change in bowel habit
CPT/HCPCS: 88305; 45380; 43239; J2001; J2704

== ENCOUNTER 2019-02-05 18:15 | Emergency (ER) | payer OTHER ==
[2019-02-05 18:29] VITALS: RESP 20
--- NOTE | 2019-02-05 19:08 | ED ---
General Adult HPI - General Chief complaint: Upper Respiratory Infection Stated complaint: Cough, sore throat Time Seen by Provider: 02/05/19 18:56 Source: patient, RN notes reviewed Mode of arrival: ambulatory Limitations: no limitations - History of Present Illness Initial comments: 33-year-old male with a past medical history of GERD, Tae fundoplication presents to the emergency department for a chief complaint of sore throat. Patient states he has had a sore throat for 4 days. States he is able to swallow solids and liquids but it is painful. States he also has some generalized neck stiffness as well Denies any fevers or chills. Denies any headaches. Patient admits to a cough for the past 4 days as well. Denies smoking. Denies productivity of cough. Denies shortness of breath or chest pain.Patient has no other complaints at this time including shortness of breath, chest pain, abdominal pain, nausea or vomiting, headache, or visual changes. - Related Data Home Medications Medication Instructions Recorded Confirmed No Known Home Medications 10/30/18 11/21/18 Allergies Allergy/AdvReac Type Severity Reaction Status Date / Time No Known Allergies Allergy Verified 02/05/19 18:29 Review of Systems ROS Statement: Those systems with pertinent positive or pertinent negative responses have been documented in the HPI. ROS Other: All systems not noted in ROS Statement are negative. Past Medical History Past Medical History: GERD/Reflux Additional Past Medical History / Comment(s): GERD RESOLVED, constipation & diarrhea. History of Any Multi-Drug Resistant Organisms: None Reported Past Surgical History: No Surgical Hx Reported Additional Past Surgical History / Comment(s): SARAH FUNDOPLASTY. 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 Absent: scleral icterus, conjunctival injection, periorbital swelling ENT exam: Present: normal exam, mucous membranes moist, TM's normal bilaterally, normal external ear exam. Absent: normal oropharynx (Erythematous, no tonsillar exudates, uvula is midline, no evidence of abscess) Neck exam: Present: normal inspection, full ROM. Absent: tenderness, meningismus (Patient is able to fully flex neck, negative Kernig, negative Brudzinski.), lymphadenopathy Respiratory exam: Present: normal lung sounds bilaterally. Absent: respiratory distress, wheezes, rales, rhonchi, stridor Cardiovascular Exam: Present: regular rate, normal rhythm, normal heart sounds. Absent: systolic murmur, diastolic murmur, rubs, gallop, clicks Neurological exam: Present: alert Course Vital Signs 02/05/19 02/05/19 18:27 19:12 Temperature 99 F Pulse Rate 111 H Respiratory 20 20 Rate Blood Pressure 128/79 O2 Sat by Pulse 98 Oximetry Medical Decision Making - Medical Decision Making Strep is negative. Chest x-ray shows no acute process. Soft tissue neck x-ray shows mild narrowing of the upper trachea. Therefore CT was obtained which shows an incidental right thyroid nodule. Otherwise no acute process. Patient likely has a viral pharyngitis and upper rest for infection. Will be discharged home as he is stable at this time. Strep culture pending. He'll return if he has any worsening symptoms.I discussed this case with attending Dr. Nunez who agrees with this assessment and treatment plan. - Lab Data Lab Results 02/05/19 Range/Units 19:05 Group A Strep Rapid Negative (Negative) Disposition Clinical Impression: Pharyngitis, Thyroid nodule Disposition: HOME SELF-CARE Condition: Good Instructions (If sedation given, give patient instructions): Pharyngitis (ED) Additional Instructions: Please follow up with primary care in 1-2 days for sore throat as well as thyroid nodule. Return to the emergency department if you have any worsening symptoms. Is patient prescribed a controlled substance at d/c from ED?: No Referrals: Ramya Hernandez MD [REFERRING] - 1-2 days Time of Disposition: 21:59
--- NOTE | 2019-02-05 20:25 | XR ---
EXAMINATION: XR chest 2V DATE AND TIME: 02/05/2019 7:20 PM CLINICAL INDICATION: Sore throat; cough TECHNIQUE: Departmental protocol COMPARISON: 08/30/2010 FINDINGS: The lungs are clear. The pleural spaces are negative. The cardiac silhouette is not enlarged. The remainder of the mediastinal silhouette is unremarkable. The skeletal structures and soft tissues are negative for acute findings. IMPRESSION: NO ACUTE PROCESS.
--- NOTE | 2019-02-05 20:29 | XR ---
EXAMINATION TYPE: XR soft tissue neck - 2 views DATE OF EXAM: 02/05/2019 COMPARISON: 09/12/2017 HISTORY: Sore throat and cough TECHNIQUE: Soft tissue technique - AP and lateral views FINDINGS: The epiglottis and aryepiglottic folds are unremarkable on the lateral view. On the AP view there is steepling of the upper trachea, suggesting the possibility of relatively mild tracheal inflammatory change. IMPRESSION: Mild narrowing of the upper trachea suggested on the AP view.
[2019-02-05] MEDS ORDERED: IBUPROFEN 600 MG TAB PO STA (20:35)
--- NOTE | 2019-02-05 21:43 | CT ---
EXAMINATION TYPE: CT soft tissue neck wo con DATE OF EXAM: 02/05/2019 HISTORY: Sore throat COMPARISON: Radiographs 02/05/2019 CT DLP: 240.5 mGycm. Automated Exposure Control for Dose Reduction was Utilized. TECHNIQUE: Departmental protocol. FINDINGS: The epiglottis and aryepiglottic folds have normal appearance. The supraglottic airway has normal appearance, and the infraglottic airway has normal appearance. There is no suprahyoid or infrahyoid adenopathy. There is no suprahyoid or infrahyoid soft tissue neck mass or mass effect. Skeletal structures are unremarkable. Incidental finding: There is a 2 cm smoothly marginated but diffusely hypodense nodule is noted withi n the right thyroid parenchyma, for which follow-up nonurgent thyroid ultrasound is recommended for c haracterization. IMPRESSION: 1. NO ACUTE PROCESS. 2. INCIDENTAL RIGHT THYROID NODULE.
[2019-02-05 22:15] VITALS: BP 132/56; PULSE 98; TEMP 99.1
== END 2019-02-05 22:05 | disposition home or self-care (01) ==
LOC: EC 18:15
DX: J02.9 Acute pharyngitis, unspecified (principal); E04.1 Nontoxic single thyroid nodule
CPT/HCPCS: 70360; 70490; 71046; 87081; 87430; 99284

== ENCOUNTER 2019-03-19 13:27 | Emergency (ER) | payer OTHER ==
[2019-03-19 13:41] VITALS: RESP 18; TEMP 99.9
--- NOTE | 2019-03-19 13:53 | ED ---
General Adult HPI - General Chief complaint: Recheck/Abnormal Lab/Rx Stated complaint: Drank washer fluid Time Seen by Provider: 03/19/19 13:40 Source: patient, RN notes reviewed, old records reviewed Mode of arrival: ambulatory Limitations: no limitations - History of Present Illness Initial comments: This is a 33-year-old male who presents emergency department stating that he actually drank some windshield wiper fluid. Patient states he had some wi ndshield wiper fluid and a bottle because his windshield wiper fluid in the car was frozen and he was using it to splash on the window when it was cold out. Patient states today he forgot about that and drank from the bottle. Patient states he drank less than a shot glass full of fluid and he spent the rest out. Patient states she's had no symptoms since but he wanted to get checked out. Patient denies any difficulty breathing or chest pain. Patient denies any abdominal pain patient denies any nausea vomiting. Patient denies any dizziness or lightheadedness. Patient denies trying to harm himself he denies any suicidal ideations. - Related Data Home Medications Medication Instructions Recorded Confirmed No Known Home Medications 10/30/18 03/19/19 Allergies Allergy/AdvReac Type Severity Reaction Status Date / Time No Known Allergies Allergy Verified 03/19/19 14:53 Review of Systems ROS Statement: Those systems with pertinent positive or pertinent negative responses have been documented in the HPI. ROS Other: All systems not noted in ROS Statement are negative. Past Medical History Past Medical History: GERD/Reflux Additional Past Medical History / Comment(s): GERD RESOLVED, constipation & diarrhea. History of Any Multi-Drug Resistant Organisms: None Reported Past Surgical History: No Surgical Hx Reported Additional Past Surgical History / Comment(s): SARAH FUNDOPLASTY. 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 Patient is nontoxic and well- hydrated and is in no acute distress. ENT: Neck is soft and supple. No significant lymphadenopathy is noted. Oropharynx is clear. Moist mucous membranes. Neck has full range of motion without eliciting any pain. EYES: The sclera were anicteric and conjunctiva were pink and moist. Extraocular movements were intact and pupils were equal round and reactive to light. Eyelids were unremarkable. PULMONARY: Unlabored respirations. Good breath sounds bilaterally. No audible rales rho nchi or wheezing was noted. CARDIOVASCULAR: There is a regular rate and rhythm without any murmurs gallops or rubs. ABDOMEN: Soft and nontender with normal bowel sounds. SKIN: Skin is clear with no lesions or rashes and otherwise unremarkable. NEUROLOGIC: Patient is alert and oriented x3. Cranial nerves II through XII are grossly intact. Motor and sensory are also intact. Normal speech, volume and content. Symmetrical smile. MUSCULOSKELETAL: Normal extremities with adequate strength and full range of motion. LYMPHATICS: No significant lymphadenopathy is noted PSYCHIATRIC: Normal psychiatric evaluation. She denies any suicidal ideations or any ideas of wanting to harm himself. Limitations: no limitations Course Vital Signs 03/19/19 03/19/19 13:37 15:22 Temperature 99.9 F H Pulse Rate 117 H 100 Respiratory 18 18 Rate Blood Pressure 149/102 121/81 O2 Sat by Pulse 99 98 Oximetry Medical Decision Making - Medical Decision Making Patient's EKG shows normal sinus rhythm at 80 bpm MD interval is on a 42 QRS is 60 QT interval 318 QTC is 384. Patient is not acidotic. New. Patient remains asymptomatic for 3 hours he was in the emergency department. - Lab Data Result diagrams: 03/19/19 14:34 Lab Results 03/19/19 Range/Units 14:34 Sodium 139 (137-145) mmol/L Potassium 4.5 (3.5-5.1) mmol/L Chloride 110 H (98-107) mmol/L Carbon Dioxide 22 (22-30) mmol/L Anion Gap 7 mmol/L BUN 11 (9-20) mg/dL Creatinine 0.96 (0.66-1.25) mg/dL Est GFR (CKD-EPI)AfAm >90 (>60 ml/min/1.73 sqM) Est GFR (CKD-EPI)NonAf >90 (>60 ml/min/1.73 sqM) Glucose 108 H (74-99) mg/dL Calcium 9.1 (8.4-10.2) mg/dL Total Bilirubin 0.5 (0.2-1.3) mg/dL AST 25 (17-59) U/L ALT 38 (21-72) U/L Alkaline Phosphatase 61 (38-126) U/L Total Protein 5.7 L (6.3-8.2) g/dL Albumin 3.5 (3.5-5.0) g/dL Disposition Clinical Impression: Accidental ingestion of substance Disposition: HOME SELF-CARE Condition: Good Additional Instructions: Patient should return if there are any symptoms at all. Is patient prescribed a controlled substance at d/c from ED?: No Referrals: Pelon Yang MD [Primary Care Provider] - 1-2 days Time of Disposition: 16:24
[2019-03-19 14:55] LABS: ALT 38 U/L (21-72); AST 25 U/L (17-59); African American GFR (CKD) >90 (>60 ml/min/1.73 sqM); Albumin 3.5 g/dL (3.5-5.0); Alkaline Phosphatase 61 U/L (38-126); Anion Gap 7 mmol/L; Blood Urea Nitrogen 11 mg/dL (9-20); Calcium 9.1 mg/dL (8.4-10.2); Carbon Dioxide 22 mmol/L (22-30); Chloride 110 mmol/L (98-107); Glucose 108 mg/dL (74-99); Non-African American GFR(CKD) >90 (>60 ml/min/1.73 sqM); Potassium 4.5 mmol/L (3.5-5.1); Sodium 139 mmol/L (137-145); Total Bilirubin 0.5 mg/dL (0.2-1.3); Total Protein 5.7 g/dL (6.3-8.2)
[2019-03-19 15:24] VITALS: BP 121/81; PULSE 100
== END 2019-03-19 16:34 | disposition home or self-care (01) ==
LOC: EC 13:27
DX: T65.891A Toxic effect of other specified substances, accidental (unintentional), initial encounter (principal)
CPT/HCPCS: 36415; 80053; 93005; 99284

== ENCOUNTER → 2019-04-08 | Outpatient (CLI) | payer OTHER ==
--- NOTE | 2019-04-08 15:39 | NM ---
EXAMINATION TYPE: NM hepatobiliary w CCK DATE OF EXAM: 04/08/2019 COMPARISON: NONE HISTORY: Chronic cholecystitis TECHNIQUE: After the intravenous administration of 4.1 mCi Tc 99m Mebrofenin hepatobiliary scintigrap hy is performed. Immediate images post injection. FINDINGS: There is satisfactory initial accumulation of tracer by the liver. The gallbladder is visualized wit hin 4 minutes. The small bowel activity is noted within 20 minutes. At one hour CCK was administere d, patient was injected with 1.6 mcg of Kinevac, and gallbladder ejection fraction is calculated at 9 8 %, above the upper limit of normal range. Therefore there is no scintigraphic evidence of cystic o r common bile duct obstruction to suggest acute cholecystitis. IMPRESSION: Elevated gallbladder ejection fraction may be indicative of hyper dynamic gallbladder
== END | disposition home or self-care (01) ==
LOC: RADNMMAIN 12:42
PROVIDERS: ATTEND Surgery
DX: K81.1 Chronic cholecystitis (principal)
CPT/HCPCS: 78227; A9537

== ENCOUNTER 2019-04-10 10:57 | Day surgery (SDC) | payer OTHER ==
[2019-04-08 09:23] VITALS: BMI 21.5
[~2019-04-10 10:57] MED LIST changes: -LIDOCAINE 1% 20 ML VIAL (10MG/ML) FOR IV START INTRADERMA PRN
[2019-04-10] MEDS ORDERED: LIDOCAINE 1% 20 ML VIAL (10MG/ML) FOR IV START INTRADERMA ONE (11:27)
[2019-04-10] MEDS ORDERED: LACTATED RINGERS 1,000 ML IV ONE (11:27)
[2019-04-10] MEDS ORDERED: PROPOFOL 10 MG/ML 20 ML VIAL IV ONE (12:38)
--- NOTE | 2019-04-10 12:44 | P.GSHP ---
History of Present Illness H&P Date: 04/10/19 Chief Complaint: epigastric pain, dysphagia this a 33-year-old male who presents today for EGD. He's had complaints of dysphagia and epigastric pain. Past Medical History Past Medical History: GERD/Reflux Additional Past Medical History / Comment(s): GERD RESOLVED, Hx. of constipation & diarrhea. History of Any Multi-Drug Resistant Organisms: None Reported Past Surgical History: No Surgical Hx Reported Additional Past Surgical History / Comment(s): SARAH FUNDOPLASTY ,Tumor removal from neck as a child, colonoscopy. Past Anesthesia/Blood Transfusion Reactions: No Reported Reaction Smoking Status: Never smoker - Past Family History Mother Family Medical History: No Reported History Medications and Allergies Home Medications Medication Instructions Recorded Confirmed Type No Known Home Medications 10/30/18 04/08/19 History Allergies Allergy/AdvReac Type Severity Reaction Status Date / Time No Known Allergies Allergy Verified 04/08/19 10:08 Surgical - Exam - General well developed, well nourished, no distress - Eyes PERRL - ENT normal pinna - Neck no masses - Respiratory normal expansion - Cardiovascular Rhythm: regular - Abdomen Abdomen: soft, non tender Assessment and Plan Assessment: epigastric pain, dysphagia. We'll perform EGD.
--- NOTE | 2019-04-10 12:49 | P.OP ---
Date of Procedure: 04/10/19 Preoperative Diagnosis: dysphagia Postoperative Diagnosis: antral gastritis Procedure(s) Performed: EGD Anesthesia: MAC Surgeon: Gab Navas Pathology: other (antrum) Condition: stable Disposition: PACU Description of Procedure: patient's placed on the endoscopy table in the lateral position. He received IV sedation. The gastroscope placed oropharynx and passed in the esophagus and into the stomach. Scope was placed through the pylorus. The first and second portion of the duodenum. Normal. Scope was then brought back the antrum and this appeared mildly inflamed. A biopsies performed. The scope was unretroflexed and remainder some appeared normal. There is no significant hiatal hernia. The GE junction was at 47 is. The distal esophagus. Normal. The proximal esophagus. Normal. Scope was withdrawn for patient.
[2019-04-10 13:09] VITALS: RESP 16
[2019-04-10 13:24] VITALS: BP 122/79; PULSE 73
== END 2019-04-10 13:28 | disposition home or self-care (01) ==
LOC: ORWHC2ENDO 10:57
PROVIDERS: ATTEND Surgery
DX: K29.50 Unspecified chronic gastritis without bleeding (principal); Z87.19 Personal history of other diseases of the digestive system; Z98.890 Other specified postprocedural states
CPT/HCPCS: 88305; 43239; J2704

== ENCOUNTER 2019-04-10 23:05 | Emergency (ER) | payer OTHER ==
[2019-04-10 23:10] VITALS: RESP 18; TEMP 98.1
[2019-04-10] MEDS ORDERED: KETOROLAC 30 MG/ML 1 ML VIAL IVP STA (23:32)
[2019-04-10] MEDS ORDERED: SODIUM CHLORIDE 0.9% 1,000 ML IV STA (23:32)
[2019-04-11 00:12] LABS: Basophils # (A) 0.1 k/uL (0-0.2); Basophils % (A) 1 %; Eosinophils # (A) 0.1 k/uL (0-0.7); Eosinophils % (A) 1 %; HCT 46.7 % (39.0-53.0); HGB 16.2 gm/dL (13.0-17.5); Lymphocytes # (A) 2.4 k/uL (1.0-4.8); Lymphocytes % (A) 19 %; MCH 30.1 pg (25.0-35.0); MCHC 34.7 g/dL (31.0-37.0); MCV 86.7 fL (80.0-100.0); Mean Platelet Volume 8.7; Monocytes # (A) 0.5 k/uL (0-1.0); Monocytes % (A) 4 %; Neutrophils # (A) 9.5 k/uL (1.3-7.7); Neutrophils % (A) 74 %; Platelet Count 303 k/uL (150-450); RBC 5.39 m/uL (4.30-5.90); RDW 12.4 % (11.5-15.5); WBC 12.8 k/uL (3.8-10.6)
[2019-04-11 00:20] LABS: Appearance,Urine Clear (Clear); Bilirubin,Urine Negative (Negative); Blood,Urine Negative (Negative); Color,Urine Light Yellow; Glucose,Urine (UA) Negative (Negative); Ketones,Urine Negative (Negative); Leukocyte Esterase,Urine Negative (Negative); Nitrite,Urine Negative (Negative); PH, Urine 5.5 (5.0-8.0); Protein,Urine Negative (Negative); Specific Gravity,Urine 1.004 (1.001-1.035); Urobilinogen,Urine <2.0 mg/dL (<2.0)
[2019-04-11 00:21] LABS: ALT 33 U/L (4-49); AST 26 U/L (17-59); African American GFR (CKD) >90 (>60 ml/min/1.73 sqM); Albumin 4.4 g/dL (3.5-5.0); Alkaline Phosphatase 72 U/L (38-126); Amylase 50 U/L (30-110); Anion Gap 7 mmol/L; Blood Urea Nitrogen 11 mg/dL (9-20); Carbon Dioxide 26 mmol/L (22-30); Chloride 107 mmol/L (98-107); Glucose 100 mg/dL (74-99); Non-African American GFR(CKD) >90 (>60 ml/min/1.73 sqM); Potassium 3.8 mmol/L (3.5-5.1); Sodium 140 mmol/L (137-145); Total Bilirubin 0.5 mg/dL (0.2-1.3); Total Protein 6.8 g/dL (6.3-8.2)
--- NOTE | 2019-04-11 00:22 | ED ---
Abdominal Pain HPI - General Chief Complaint: Abdominal Pain Stated Complaint: Abd Pain Time Seen by Provider: 04/10/19 23:18 Source: patient Mode of arrival: ambulatory Limitations: no limitations - History of Present Illness Initial Comments: patient is a 33-year-old male presenting to emergency Department with complaints of right upper quadrant pain has been increasing over the past 3 hours. Patient recently had a HIDA scan performed 2 days ago and is awaiting the results and discuss options with Dr. Navas. Patient also had an upper scope performed today with Dr. Navas which showed no acute abnormalities. She states this of bright upper quadrant pain started suddenly prexy 3 hours ago and has been consistent. Patient feels like the pain has been increasing. Patient denies fever, chills, nausea, vomiting, diarrhea. Patient has no other complaints at this time. Patient did not take anything for pain. Upon arrival to the ER, aimee madden's BP is slightly elevated at 162/105, slightly tachycardia at 113, rest of vitals normal. - Related Data Home Medications Medication Instructions Recorded Confirmed No Known Home Medications 10/30/18 04/10/19 Allergies Allergy/AdvReac Type Severity Reaction Status Date / Time No Known Allergies Allergy Verified 04/10/19 23:10 Review of Systems ROS Statement: Those systems with pertinent positive or pertinent negative responses have been documented in the HPI. ROS Other: All systems not noted in ROS Statement are negative. Past Medical History Past Medical History: GERD/Reflux Additional Past Medical History / Comment(s): GERD RESOLVED, Hx. of constipation & diarrhea. History of Any Multi-Drug Resistant Organisms: None Reported Past Surgical History: No Surgical Hx Reported Additional Past Surgical History / Comment(s): SARAH FUNDOPLASTY ,Tumor removal from neck as a child, colonoscopy. Past Anesthesia/Blood Transfusion Reactions: No Reported Reaction Past Psychological History: No Psychological Hx Reported Smoking Status: Never smoker Past Alcohol Use History: Rare Past Drug Use History: None Reported - Past Family History Mother Family Medical History: No Reported History General Exam - General Exam Comments Initial Comments: GENERAL: Well-appearing, well-nourished and in no acute distress. HEAD: Atraumatic, normocephalic. EYES: Pupils equal round and reactive to light, extraocular movements intact, sclera anicteric, conjunctiva are normal. ENT: TMs normal, nares patent, oropharynx clear without exudates. Moist mucous membranes. NECK: Normal range of motion, supple without lymphadenopathy or JVD. LUNGS: Breath sounds clear to auscultation bilaterally and equal. No wheezes rales or rhonchi. HEART: Regular rate and rhythm without murmurs, rubs or gallops. ABDOMEN: tender to palpation in the right upper quadrant, positive Valle's sign. Soft, normoactive bowel sounds. No rebound. No masses appreciated. : Deferred EXTREMITIES: Normal range of motion, no pitting or edema. No clubbing or cyanosis. NEUROLOGICAL: Normal speech, normal gait. PSYCH: Normal mood, normal affect. SKIN: Warm, Dry, normal turgor, no rashes or lesions noted. Limitations: no limitations Course Vital Signs 04/10/19 04/11/19 23:07 01:07 Temperature 98.1 F Pulse Rate 113 H 98 Respiratory 18 18 Rate Blood Pressure 162/105 129/85 O2 Sat by Pulse 100 98 Oximetry Medical Decision Making - Medical Decision Making patient is 33-year-old male presenting with right upper quadrant pain 3 hours prior to arrival. Afebrile. Laboratory shows no acute abnormalities. Lactic acid is normal. UA is normal. Ultrasound gallbladder shows no gallstones or dilated ducts. X-ray of the abdomen shows no acute abnormalities, no free air. Patient was given fluids as well as Toradol reports improvement in symptoms. Vital signs improved. Patient is stable for discharge. Patient is agreeable with this plan of care. Patient does have an appointment with Dr. Navas today at 2:45 PM. Return parameters were discussed with the patient and he verbalized understanding. Case discussed with Dr. Ventura. - Lab Data Result diagrams: 04/11/19 00:02 04/11/19 00:02 Lab Results 04/11/19 04/11/19 04/11/19 Range/Units 00:00 00:02 00:02 WBC 12.8 H (3.8-10.6) k/uL RBC 5.39 (4.30-5.90) m/uL Hgb 16.2 (13.0-17.5) gm/dL Hct 46.7 (39.0-53.0) % MCV 86.7 (80.0-100.0) fL MCH 30.1 (25.0-35.0) pg MCHC 34.7 (31.0-37.0) g/dL RDW 12.4 (11.5-15.5) % Plt Count 303 (150-450) k/uL Neutrophils % 74 % Lymphocytes % 19 % Monocytes % 4 % Eosinophils % 1 % Basophils % 1 % Neutrophils # 9.5 H (1.3-7.7) k/uL Lymphocytes # 2.4 (1.0-4.8) k/uL Monocytes # 0.5 (0-1.0) k/uL Eosinophils # 0.1 (0-0.7) k/uL Basophils # 0.1 (0-0.2) k/uL PT (9.0-12.0) sec INR (<1.2) APTT (22.0-30.0) sec Sodium 140 (137-145) mmol/L Potassium 3.8 (3.5-5.1) mmol/L Chloride 107 (98-107) mmol/L Carbon Dioxide 26 (22-30) mmol/L Anion Gap 7 mmol/L BUN 11 (9-20) mg/dL Creatinine 1.05 (0.66-1.25) mg/dL Est GFR (CKD-EPI)AfAm >90 (>60 ml/min/1.73 sqM) Est GFR (CKD-EPI)NonAf >90 (>60 ml/min/1.73 sqM) Glucose 100 H (74-99) mg/dL Plasma Lactic Acid Jaison (0.7-2.0) mmol/L Calcium 10.0 (8.4-10.2) mg/dL Total Bilirubin 0.5 (0.2-1.3) mg/dL AST 26 (17-59) U/L ALT 33 (4-49) U/L Alkaline Phosphatase 72 (38-126) U/L Total Protein 6.8 (6.3-8.2) g/dL Albumin 4.4 (3.5-5.0) g/dL Amylase 50 (30-110) U/L Lipase 150 (23-300) U/L Urine Color Light Yellow Urine Appearance Clear (Clear) Urine pH 5.5 (5.0-8.0) Ur Specific [place] 1.004 (1.001-1.035) Urine Protein Negative (Negative) Urine Glucose (UA) Negative (Negative) Urine Ketones Negative (Negative) Urine Blood Negative (Negative) Urine Nitrite Negative (Negative) Urine Bilirubin Negative (Negative) Urine Urobilinogen <2.0 (<2.0) mg/dL Ur Leukocyte Esterase Negative (Negative) 04/11/19 04/11/19 Range/Units 00:02 00:02 WBC (3.8-10.6) k/uL RBC (4.30-5.90) m/uL Hgb (13.0-17.5) gm/dL Hct (39.0-53.0) % MCV (80.0-100.0) fL MCH (25.0-35.0) pg MCHC (31.0-37.0) g/dL RDW (11.5-15.5) % Plt Count (150-450) k/uL Neutrophils % % Lymphocytes % % Monocytes % % Eosinophils % % Basophils % % Neutrophils # (1.3-7.7) k/uL Lymphocytes # (1.0-4.8) k/uL Monocytes # (0-1.0) k/uL Eosinophils # (0-0.7) k/uL Basophils # (0-0.2) k/uL PT 10.0 (9.0-12.0) sec INR 0.9 (<1.2) APTT 22.0 (22.0-30.0) sec Sodium (137-145) mmol/L Potassium (3.5-5.1) mmol/L Chloride (98-107) mmol/L Carbon Dioxide (22-30) mmol/L Anion Gap mmol/L BUN (9-20) mg/dL Creatinine (0.66-1.25) mg/dL Est GFR (CKD-EPI)AfAm (>60 ml/min/1.73 sqM) Est GFR (CKD-EPI)NonAf (>60 ml/min/1.73 sqM) Glucose (74-99) mg/dL Plasma Lactic Acid Jaison 0.9 (0.7-2.0) mmol/L Calcium (8.4-10.2) mg/dL Total Bilirubin (0.2-1.3) mg/dL AST (17-59) U/L ALT (4-49) U/L Alkaline Phosphatase (38-126) U/L Total Protein (6.3-8.2) g/dL Albumin (3.5-5.0) g/dL Amylase (30-110) U/L Lipase (23-300) U/L Urine Color Urine Appearance (Clear) Urine pH (5.0-8.0) Ur Specific [place] (1.001-1.035) Urine Protein (Negative) Urine Glucose (UA) (Negative) Urine Ketones (Negative) Urine Blood (Negative) Urine Nitrite (Negative) Urine Bilirubin (Negative) Urine Urobilinogen (<2.0) mg/dL Ur Leukocyte Esterase (Negative) Disposition Clinical Impression: Abdominal pain Disposition: HOME SELF-CARE Condition: Stable Instructions (If sedation given, give patient instructions): Abdominal Pain (ED ) Additional Instructions: Please return to the Emergency Department if symptoms worsen or any other concerns. Follow-up with Dr. Navas as discussed today at 245. May take Tylenol or Motrin for discomfort. Is patient prescribed a controlled substance at d/c from ED?: No Referrals: Pelon Yang MD [Primary Care Provider] - 1-2 days
[2019-04-11 00:27] LABS: INR 0.9 (<1.2)
--- NOTE | 2019-04-11 00:47 | US ---
EXAMINATION TYPE: US gallbladder DATE OF EXAM: 04/11/2019 COMPARISON: NM, CT CLINICAL HISTORY: RUQ pain. RUQ pain x couple weeks. Pain has worsened x 3 hours. EXAM MEASUREMENTS: Liver Length: 17.4 cm Gallbladder Wall: 0.23 cm CBD: 0.47 cm Right Kidney: 10.7 x 4.7 x 4.3 cm Limited due to gas. Pancreas: Limited due to overlying bowel gas. Liver: Appears to measure upper limits of normal. Gallbladder: Appears to be anechoic. Measures 8.4 cm in length. Evidence for sonographic Valle's sign: Yes CBD: Appears to be wnl Right Kidney: Renal pelvis appears prominent. IMPRESSION: Negative exam. No gallstones or dilated ducts.
--- NOTE | 2019-04-11 01:06 | XR ---
EXAMINATION TYPE: XR KUB DATE OF EXAM: 04/11/2019 COMPARISON: NONE HISTORY: Right upper quadrant pain TECHNIQUE: 2 views FINDINGS: 2 views upright show no sign of intestinal obstruction or pneumoperitoneum. Fecal pattern i s normal. There is no sign of a mass. There are no pathologic calcifications over the kidneys. Lung b ases are clear. IMPRESSION: Nonacute abdomen.
[2019-04-11 01:08] VITALS: BP 129/85; PULSE 98
== END 2019-04-11 01:20 | disposition home or self-care (01) ==
LOC: EC 23:05
DX: R10.11 Right upper quadrant pain (principal); Z87.19 Personal history of other diseases of the digestive system; Z98.890 Other specified postprocedural states
CPT/HCPCS: 36415; 74018; 76705; 80053; 81003; 82150; 83605; 83690; 85025; 85610; 85730; 96361; 96374; 99284

== ENCOUNTER 2019-04-16 17:00 | Emergency (ER) | payer OTHER ==
[2019-04-16 17:04] VITALS: RESP 18
[2019-04-16] MEDS ORDERED: SODIUM CHLORIDE 0.9% 1,000 ML IV STA (17:17)
[2019-04-16] MEDS ORDERED: ONDANSETRON 4 MG/2 ML VIAL IVP STA (17:17)
[2019-04-16] MEDS ORDERED: KETOROLAC 30 MG/ML 1 ML VIAL IVP STA (17:17)
--- NOTE | 2019-04-16 17:21 | ED ---
General Adult HPI - General Chief complaint: Abdominal Pain Stated complaint: RUQ pain Time Seen by Provider: 04/16/19 17:05 Source: patient Mode of arrival: ambulatory Limitations: no limitations - History of Present Illness Initial comments: Patient presents to the ED complaining of having intermittent right upper quadrant abdominal pain for the past month or so. Patient states that he has been seen by Dr. Navas (general surgery), and he states that he is scheduled to have his gallbladder removed on 05/03/2019. Patient states that his pain has been more severe since about 10 AM this morning, and he admits to feeling nauseated as well. Patient denies trauma or injury, fever or chills, headache, chest pain, dyspnea, dizziness, lower abdominal pain, back or flank pain, vomiting, diarrhea or constipation, bloody or melanotic stool, dysuria /hematuria/urinary frequency/urinary symptoms, or any other symptoms or complaints. - Related Data Home Medications Medication Instructions Recorded Confirmed No Known Home Medications 10/30/18 04/10/19 Allergies Allergy/AdvReac Type Severity Reaction Status Date / Time No Known Allergies Allergy Verified 04/10/19 23:10 Review of Systems ROS Statement: Those systems with pertinent positive or pertinent negative responses have been documented in the HPI. ROS Other: All systems not noted in ROS Statement are negative. Past Medical History Past Medical History: GERD/Reflux Additional Past Medical History / Comment(s): GERD RESOLVED, Hx. of constipation & diarrhea. History of Any Multi-Drug Resistant Organisms: None Reported Past Surgical History: No Surgical Hx Reported Additional Past Surgical History / Comment(s): SARAH FUNDOPLASTY ,Tumor removal from neck as a child, colonoscopy. Past Anesthesia/Blood Transfusion Reactions: No Reported Reaction Past Psychological History: No Psychological Hx Reported Smoking Status: Never smoker Past Alcohol Use History: Rare Past Drug Use History: None Reported - Past Family History Mother Family Medical History: No Reported History General Exam Limitations: no limitations General appearance: alert, in no apparent distress Head exam: Present: atraumatic, normocephalic Eye exam: Present: normal appearance, EOMI ENT exam: Present: mucous membranes moist Neck exam: Present: other (Trachea is in midline) Respiratory exam: Present: normal lung sounds bilaterally. Absent: respiratory distress, wheezes, rales, rhonchi Cardiovascular Exam: Present: regular rate, normal rhythm, normal heart sounds, other (Normal radial pulses bilaterally) GI/Abdominal exam: Present: soft, normal bowel sounds, other (Moderate right upper quadrant tenderness). Absent: distended, guarding, rebound Extremities exam: Absent: tenderness, pedal edema, calf tenderness Back exam: Absent: CVA tenderness (R), CVA tenderness (L) Neurological exam: Present: alert, oriented X3. Absent: motor sensory deficit Psychiatric exam: Present: normal affect, normal mood Skin exam: Present: warm, dry, intact, normal color Course Vital Signs 04/16/19 04/16/19 04/16/19 17:01 17:20 17:40 Temperature 97.3 F L Pulse Rate 94 Respiratory 18 Rate Blood Pressure 141/90 121/78 123/80 O2 Sat by Pulse 97 97 Oximetry 04/16/19 04/16/19 04/16/19 18:00 18:20 18:37 Temperature Pulse Rate 86 Respiratory 18 Rate Blood Pressure 118/81 125/83 O2 Sat by Pulse 98 99 Oximetry 04/16/19 04/16/19 18:40 19:00 Temperature Pulse Rate 82 Respiratory 18 Rate Blood Pressure 115/95 117/74 O2 Sat by Pulse 95 96 Oximetry - Reevaluation(s) Reevaluation #1: 04/16/19 19:03 Patient states that his pain has now improved, and he denies development of any new symptoms while in the ED. Patient's abdomen remains soft and without any surgical signs on exam. Patient is aware of his test results, and he feels comfortable going home at this time. Medical Decision Making - Medical Decision Making Patient's labs are fairly unremarkable. Patient is afebrile and without leukocytosis. Patient's gallbladder ultrasound is unremarkable. I do not suspect that the patient's pain/symptoms are from a surgical condition or emergent medical condition. Will discharge patient home at this time. Patient was instructed to follow up closely with his PCP, as well as his general surgeon. Patient was clearly explained return and follow-up instructions. Patient feels comfortable with this plan. - Lab Data Result diagrams: 04/16/19 17:40 04/16/19 17:40 Lab Results 04/16/19 04/16/19 Range/Units 17:40 17:40 WBC 8.8 (3.8-10.6) k/uL RBC 5.33 (4.30-5.90) m/uL Hgb 15.9 (13.0-17.5) gm/dL Hct 45.6 (39.0-53.0) % MCV 85.5 (80.0-100.0) fL MCH 29.9 (25.0-35.0) pg MCHC 34.9 (31.0-37.0) g/dL RDW 12.3 (11.5-15.5) % Plt Count 268 (150-450) k/uL Neutrophils % 71 % Lymphocytes % 20 % Monocytes % 5 % Eosinophils % 2 % Basophils % 1 % Neutrophils # 6.2 (1.3-7.7) k/uL Lymphocytes # 1.7 (1.0-4.8) k/uL Monocytes # 0.4 (0-1.0) k/uL Eosinophils # 0.2 (0-0.7) k/uL Basophils # 0.0 (0-0.2) k/uL Sodium 139 (137-145) mmol/L Potassium 4.1 (3.5-5.1) mmol/L Chloride 108 H (98-107) mmol/L Carbon Dioxide 26 (22-30) mmol/L Anion Gap 5 mmol/L BUN 13 (9-20) mg/dL Creatinine 0.95 (0.66-1.25) mg/dL Est GFR (CKD-EPI)AfAm >90 (>60 ml/min/1.73 sqM) Est GFR (CKD-EPI)NonAf >90 (>60 ml/min/1.73 sqM) Glucose 104 H (74-99) mg/dL Calcium 8.7 (8.4-10.2) mg/dL Total Bilirubin 0.3 (0.2-1.3) mg/dL AST 24 (17-59) U/L ALT 26 (4-49) U/L Alkaline Phosphatase 57 (38-126) U/L Total Protein 5.1 L (6.3-8.2) g/dL Albumin 3.2 L (3.5-5.0) g/dL Lipase 100 (23-300) U/L - Radiology Data Radiology results: report reviewed (Patient's gallbladder ultrasound is negative, no gallstones or dilated ducts) Disposition Clinical Impression: Abdominal pain Disposition: HOME SELF-CARE Condition: Stable Instructions (If sedation given, give patient instructions): Abdominal Pain (ED) Additional Instructions: Return to the ER immediately should you develop new or worsening pain, a fever, vomiting, feeling dizzy or faint, or new or worsening symptoms. Follow up closely with your primary care provider in with your surgeon. Is patient prescribed a controlled substance at d/c from ED?: No Referrals: Pelon Yang MD [Primary Care Provider] - 1-2 days Time of Disposition: 19:02
[2019-04-16 17:53] LABS: Basophils % (A) 1 %; Eosinophils # (A) 0.2 k/uL (0-0.7); Eosinophils % (A) 2 %; HCT 45.6 % (39.0-53.0); HGB 15.9 gm/dL (13.0-17.5); Lymphocytes # (A) 1.7 k/uL (1.0-4.8); Lymphocytes % (A) 20 %; MCH 29.9 pg (25.0-35.0); MCHC 34.9 g/dL (31.0-37.0); MCV 85.5 fL (80.0-100.0); Mean Platelet Volume 8.5; Monocytes # (A) 0.4 k/uL (0-1.0); Monocytes % (A) 5 %; Neutrophils # (A) 6.2 k/uL (1.3-7.7); Neutrophils % (A) 71 %; Platelet Count 268 k/uL (150-450); RBC 5.33 m/uL (4.30-5.90); RDW 12.3 % (11.5-15.5); WBC 8.8 k/uL (3.8-10.6)
[2019-04-16 18:05] LABS: ALT 26 U/L (4-49); AST 24 U/L (17-59); African American GFR (CKD) >90 (>60 ml/min/1.73 sqM); Albumin 3.2 g/dL (3.5-5.0); Alkaline Phosphatase 57 U/L (38-126); Anion Gap 5 mmol/L; Blood Urea Nitrogen 13 mg/dL (9-20); Calcium 8.7 mg/dL (8.4-10.2); Carbon Dioxide 26 mmol/L (22-30); Chloride 108 mmol/L (98-107); Glucose 104 mg/dL (74-99); Non-African American GFR(CKD) >90 (>60 ml/min/1.73 sqM); Potassium 4.1 mmol/L (3.5-5.1); Sodium 139 mmol/L (137-145); Total Bilirubin 0.3 mg/dL (0.2-1.3); Total Protein 5.1 g/dL (6.3-8.2)
--- NOTE | 2019-04-16 18:59 | US ---
EXAMINATION TYPE: US gallbladder DATE OF EXAM: 04/16/2019 COMPARISON: US 5 days ago CLINICAL HISTORY: abdominal pain. Right lateral abdomen pain EXAM MEASUREMENTS: Liver Length: 14.7 cm Gallbladder Wall: 0.2 cm CBD: 0.4 cm Right Kidney: 10.7 x 4.8 x 4.2 cm Pancreas: mid and tail obscured by overlying bowel gas Liver: wnl Gallbladder: wnl Evidence for sonographic Valle's sign: no CBD: wnl Right Kidney: wnl IMPRESSION: Negative exam. No gallstones or dilated ducts.
[2019-04-16 19:15] VITALS: BP 115/70; PULSE 84; TEMP 98.6
== END 2019-04-16 19:14 | disposition home or self-care (01) ==
LOC: EC 17:00
DX: R10.11 Right upper quadrant pain (principal); Z87.19 Personal history of other diseases of the digestive system; Z98.890 Other specified postprocedural states
CPT/HCPCS: 36415; 80053; 83690; 85025; 76705; 99284; 96374; 96375; 96361; J2405; J1885

== ENCOUNTER 2019-05-03 08:11 | Observation (INO) | payer OTHER ==
[2019-04-30 15:36] VITALS: BMI 21.5
[~2019-05-03 08:11] MED LIST changes: +DEXAMETHASONE SOD PHOSPHATE 10 MG/ML 1 ML VIAL IV ONE; +HEPARIN SODIUM,PORCINE 5,000 UNIT/ML 1 ML VIAL SQ ONE; -LACTATED RINGERS 1,000 ML IV SCH; +MIDAZOLAM 2 MG/2 ML VIAL IV PRN; +ONDANSETRON 4 MG/2 ML VIAL IVP ONE; +SCOPOLAMINE 1.5MG/72HR PATCH TRANSDERM ONE
[2019-05-03] MEDS: LACTATED RINGERS 1,000 ML IV SCH ×3 (08:33→17:03)
--- NOTE | 2019-05-03 08:58 | P.GSHP ---
History of Present Illness H&P Date: 05/03/19 Chief Complaint: Right upper quadrant pain This a 35-year-old male second is reniform pain. His recent HIDA scan shows evidence of hyperdynamic gallbladder with a elevated ejection fraction. Past Medical History Past Medical History: GERD/Reflux Additional Past Medical History / Comment(s): GERD RESOLVED,. GALLBLADDER DISORDER History of Any Multi-Drug Resistant Organisms: None Reported Past Surgical History: Hernia Repair Additional Past Surgical History / Comment(s): MAGUE FUNDOPLASTY ,Tumor removal from neck as a child, colonoscopy. Past Anesthesia/Blood Transfusion Reactions: No Reported Reaction Smoking Status: Never smoker - Past Family History Mother Family Medical History: No Reported History Medications and Allergies Home Medications Medication Instructions Recorded Confirmed Type No Known Home Medications 10/30/18 05/03/19 History Allergies Allergy/AdvReac Type Severity Reaction Status Date / Time No Known Allergies Allergy Verified 05/03/19 08:27 Surgical - Exam Vital Signs Temp Pulse Resp BP Pulse Ox 98.8 F 99 16 148/87 99 05/03/19 08:33 05/03/19 08:33 05/03/19 08:33 05/03/19 08:33 05/03/19 08:33 - General well developed, well nourished, no distress - Eyes PERRL - ENT normal pinna - Neck no masses - Respiratory normal expansion - Cardiovascular Rhythm: regular - Abdomen Abdomen: soft, non tender Assessment and Plan Assessment: Biliary dysfunction Chronic cholecystitis We'll perform laparoscopic cholecystectomy
[2019-05-03] MEDS ORDERED: GLYCOPYRROLATE 0.2 MG/ML 2 ML VIAL ONE (09:20)
[2019-05-03] MEDS ORDERED: MIDAZOLAM 2 MG/2 ML VIAL ONE (09:20)
[2019-05-03] MEDS ORDERED: PROPOFOL 10 MG/ML 20 ML VIAL IV ONE (09:20)
[2019-05-03] MEDS ORDERED: fentaNYL (PF) 50 MCG/ML 2 ML AMP ONE (09:20)
[2019-05-03] MEDS ORDERED: NEOSTIGMINE 1 MG/ML 10 ML VIAL ONE (09:20)
[2019-05-03] MEDS ORDERED: LIDOCAINE 1% INJ 10MG/ML (20 ML MDV) ONE (09:20)
[2019-05-03] MEDS ORDERED: ROCURONIUM BROMIDE 10 MG/ML 10 ML VIAL IV ONE (09:20)
[2019-05-03] MEDS ORDERED: BUPIVACAINE (PF) 0.25% 30 ML VIAL SQ ONE (09:51)
[2019-05-03] MEDS ORDERED: LACTATED RINGERS 1,000 ML IV ONE ×2 (09:53)
--- NOTE | 2019-05-03 10:18 | P.OP ---
Date of Procedure: 05/03/19 Preoperative Diagnosis: Cholecystitis Postoperative Diagnosis: Cholecystitis Procedure(s) Performed: Laparoscopic cholecystectomy Anesthesia: DELMA Surgeon: Gab Navas Estimated Blood Loss (ml): 5 Pathology: other (Gallbladder) Condition: stable Disposition: PACU Description of Procedure: The patient was placed on the operating table. The patient received a general endotracheal tube anesthesia. The patients abdomen was prepped and draped in the usual sterile fashion. Through an infraumbilical stab incision, the fascia of the anterior abdominal wall was grasped with a pair of Kochers and then the Veress needle was placed in the peritoneal cavity. Position of the Veress needle was confirmed with positive drop test. The abdomen was then insufflated. After adequate insufflation, the 10 mm trocar was placed in the peritoneal cavity. Following this the laparoscope was placed in the peritoneal cavity. The patient was placed in the head-up, right side up position and then a 5 mm trocar was placed in the right lateral and right subcostal position under direct visualization. A 8 mm trocar was placed in the epigastric position. The gallbladder was grasped in the fundus and infundibulum. Traction on the gallbladder was placed in the lateral and the cephalad positions. The triangle of Calot was visualized.. The cystic duct was bluntly dissected until the union of the cystic duct and common bile duct was seen. A critical view of safety was achieved. The cystic duct was then divided and sealed with the Harmonic scissors. A PDS Endoloop was then placed throughout the cystic duct stump. The cystic artery divided and sealed with the Harmonic scissors. The gallbladder was then removed from the liver bed using Harmonic scissors. The gallbladder was then extracted through the epigastric port site. Operative field was checked for any bleeding spots and Harmonic scissors was used to coagulate the liver bed. The abdomen was irrigated. The trocars were removed. The skin was closed using interrupted 3-0 Vicryl suture. Dermabond dressing were applied. The patient tolerated the procedure well.
[2019-05-03] MEDS ORDERED: ONDANSETRON 4 MG/2 ML VIAL IVP ONE ×2 (10:30→10:52)
[2019-05-03] MEDS: HYDROmorphone 0.5 MG/0.5 ML SYRINGE IVP PRN ×3 (10:32→10:54)
[2019-05-03] MEDS ORDERED: diphenhydrAMINE 50 MG/ML 1 ML VIAL IVP ONE ×2 (10:40→12:10)
[2019-05-03] MEDS ORDERED: fentaNYL (PF) 50 MCG/ML 2 ML AMP IVP ONE (10:52)
[2019-05-03] MEDS ORDERED: PROMETHAZINE INJ 25 MG/ML 1 ML VIAL IVPB ONE (11:15)
[2019-05-03] MEDS ORDERED: HYDROmorphone 0.5 MG/0.5 ML SYRINGE IVP ONE (12:12)
[2019-05-03] MEDS ORDERED: HYDROcodone/APAP 5-325MG 1 EACH TAB PO ONE ×2 (12:15→16:47)
[2019-05-03] MEDS ORDERED: SCOPOLAMINE 1.5MG/72HR PATCH TRANSDERM ONE (13:34)
[2019-05-03] MEDS ORDERED: HYDROmorphone 0.5 MG/0.5 ML SYRINGE IVP PRN (14:43)
[2019-05-03] MEDS ORDERED: ONDANSETRON 4 MG/2 ML VIAL IVP PRN (14:43)
[2019-05-03] MEDS ORDERED: HYDROcodone/APAP 5-325MG 1 EACH TAB PO PRN (14:44)
[2019-05-03] MEDS ORDERED: ACETAMINOPHEN TAB 325 MG TAB PO PRN (14:44)
[2019-05-04 01:33] VITALS: RESP 16
[2019-05-04] MEDS: LACTATED RINGERS 1,000 ML IV SCH (02:18)
[2019-05-04 07:28] VITALS: BP 126/86; PULSE 102; TEMP 97.7
--- NOTE | 2019-05-04 09:57 | P.DS ---
Providers Date of admission: 05/03/19 21:56 Expected date of discharge: 05/04/19 Attending physician: Gab Navas Consults: 05/03/19 14:45 Consult Physician Routine Consulting Provider: Gab Navas Consult Reason/Comments: SURGICAL MANAGEMENT Do you want consulting provider notified?: Already Contacted 05/03/19 20:33 Consult Physician Routine Consulting Provider: Pelon Yang Consult Reason/Comments: medical management Do you want consulting provider notified?: Yes Primary care physician: Pelon [facility] Course: Patient was kept after his cholecystectomy yesterday because of pain and nausea. Patient doing much better today. Rates his pain had a 2 out of 10. Mildly tachycardic. No nausea or vomiting. He is anxious to go home. He is tolerating clears. He would like to try more food. Will advance diet. Will check morning labs. If patient is stable and pain stays minimal and labs look good we'll discharge. Plan - Discharge Summary Discharge Rx Participant: No New Discharge Prescriptions: New Docusate [Colace] 100 mg PO BID #20 capsule HYDROcodone/APAP 5-325MG [[place] 5-325] 1 tab PO Q6HR PRN #10 tab PRN Reason: Pain Discharge Medication List Docusate [Colace] 100 mg PO BID #20 capsule 05/03/19 [Rx] HYDROcodone/APAP 5-325MG [[place] 5-325] 1 tab PO Q6HR PRN #10 tab 05/03/19 [Rx] Follow up Appointment(s)/Referral(s): Gab Navas MD [STAFF PHYSICIAN] - 05/09/19 3:20 pm Patient Instructions/Handouts: *Surgery [facility] - ([facility]) Laparoscopic Cholecystectomy, *Sur[facility] - (Anesthesia) Discharge Instructions Outpatient Surgery, *Surgery [facility] - Scopalamine Patch Instructions, Low Fat Diet (DC)
[2019-05-04 10:49] LABS: Basophils % (A) 0 %; Eosinophils # (A) 0.1 k/uL (0-0.7); Eosinophils % (A) 1 %; HGB 14.3 gm/dL (13.0-17.5); Lymphocytes # (A) 1.8 k/uL (1.0-4.8); Lymphocytes % (A) 18 %; MCHC 33.3 g/dL (31.0-37.0); MCV 87.1 fL (80.0-100.0); Mean Platelet Volume 8.5; Monocytes # (A) 0.7 k/uL (0-1.0); Monocytes % (A) 7 %; Neutrophils # (A) 7.3 k/uL (1.3-7.7); Neutrophils % (A) 72 %; Platelet Count 249 k/uL (150-450); RBC 4.93 m/uL (4.30-5.90); RDW 12.4 % (11.5-15.5); WBC 10.1 k/uL (3.8-10.6)
[2019-05-04 11:32] LABS: African American GFR (CKD) >90 (>60 ml/min/1.73 sqM); Anion Gap 4 mmol/L; Blood Urea Nitrogen 8 mg/dL (9-20); Carbon Dioxide 29 mmol/L (22-30); Chloride 107 mmol/L (98-107); Glucose 81 mg/dL (74-99); Non-African American GFR(CKD) >90 (>60 ml/min/1.73 sqM); Sodium 140 mmol/L (137-145)
--- NOTE | 2019-05-04 23:00 | CONS ---
CONSULTATION 34-year-old white male, status post cholecystitis, stayed overnight with severe nausea, feeling better today. Fourteen-point review of systems negative except for mentioned in HPI. PHYSICAL EXAMINATION: Vital signs stable, afebrile. Cardiovascular S1, S2. Lungs: Transmitted upper airway sounds. GI soft. Hematology: Negative Homans. Psych fair mood and affect. Neurologic: Alert orient x3. Ophthalmologic: Pupils equal, round, reactive. ASSESSMENT: Status post acute cholecystitis, chronic persistent nausea. Continue current treatment. I the next 24 to 48 hours he will be discharged home. He is stable. MMODL / IJN: [id number] /
== END 2019-05-04 13:07 | disposition home or self-care (01) ==
LOC: OR 08:11 → 4SSUR 14:48 → OR 21:56 → 4SSUR 21:56
PROVIDERS: ADMIT Surgery; ATTEND Surgery
DX: K81.1 Chronic cholecystitis (principal)
CPT/HCPCS: 88304; 80048; 85025; 47562; G0378 ×2; J2250; J1200; J1644; J1100; J2550; J2710; J0690; J2405; J2001; J3010; J2704; J1170

== ENCOUNTER 2019-05-25 17:19 | Emergency (ER) | payer OTHER ==
[2019-05-25 17:24] VITALS: TEMP 98.2
--- NOTE | 2019-05-25 17:57 | ED ---
SOB HPI - General Chief Complaint: Shortness of Breath Stated Complaint: KEVIN/rib pain Time Seen by Provider: 05/25/19 17:36 Source: patient, RN notes reviewed, old records reviewed Mode of arrival: ambulatory Limitations: no limitations - History of Present Illness Initial Comments: This is a 34-year-old male DF for evaluation. Patient is recent medical history of gallbladder surgery. Patient presents today after having gallbladder disease. Patient surgery with Dr. bynum about 3-4 weeks ago. Postoperative. His been without complication. Started with abdominal pain today and right- sided rib pain today. Now with severe shortness of breath. Lightheadedness and dizziness but no fevers. Appetite mild nausea no vomiting no diarrhea. She has no other significant medical history does not drink smoke MD Complaint: shortness of breath, cough, chest pain (R sided rib pain) -: days(s) Severity: moderate Severity scale (1-10): 7 Quality: sharp, stabbing Consistency: constant Improves With: nothing Worsens With: exertion Known History Of: other (recent surgery) Associated Symptoms: chest pain, pain with inspiration, cough Treatments Prior to Arrival: none - Related Data Previous Rx's Medication Instructions Recorded Docusate [Colace] 100 mg PO BID #20 capsule 05/03/19 HYDROcodone/APAP 5-325MG [[place] 1 tab PO Q6HR PRN #10 tab 05/03/19 5-325] Allergies Allergy/AdvReac Type Severity Reaction Status Date / Time No Known Allergies Allergy Verified 05/25/19 17:24 Review of Systems ROS Statement: Those systems with pertinent positive or pertinent negative responses have been documented in the HPI. ROS Other: All systems not noted in ROS Statement are negative. Past Medical History Past Medical History: GERD/Reflux Additional Past Medical History / Comment(s): GERD RESOLVED, Hx. of constipation & diarrhea. History of Any Multi-Drug Resistant Organisms: None Reported Past Surgical History: Cholecystectomy Additional Past Surgical History / Comment(s): SARAH FUNDOPLASTY ,Tumor removal from neck as a child, colonoscopy. Past Anesthesia/Blood Transfusion Reactions: No Reported Reaction Past Psychological History: No Psychological Hx Reported Smoking Status: Never smoker Past Alcohol Use History: Rare - Past Family History Mother Family Medical History: No Reported History General Exam Limitations: no limitations General appearance: alert, in no apparent distress Head exam: Present: atraumatic, normocephalic, normal inspection Eye exam: Present: normal appearance, PERRL, EOMI. Absent: scleral icterus, conjunctival injection, periorbital swelling ENT exam: Present: normal exam, mucous membranes moist Neck exam: Present: normal inspection. Absent: tenderness, meningismus, lymphadenopathy Respiratory exam: Present: normal lung sounds bilaterally. Absent: respiratory distress, wheezes, rales, rhonchi, stridor Cardiovascular Exam: Present: normal rhythm, tachycardia, normal heart sounds. Absent: systolic murmur, diastolic murmur, rubs, gallop, clicks GI/Abdominal exam: Present: soft, tenderness (R sided), guarding, rebound, normal bowel sounds. Absent: distended, rigid Extremities exam: Present: normal inspection, full ROM, normal capillary refill. Absent: tenderness, pedal edema, joint swelling, calf tenderness Back exam: Present: normal inspection Neurological exam: Present: alert, oriented X3, CN II-XII intact Psychiatric exam: Present: normal affect, normal mood Skin exam: Present: warm, dry, intact, normal color. Absent: rash Course Vital Signs 05/25/19 05/25/19 05/25/19 17:20 17:24 17:29 Temperature 98.2 F Pulse Rate 88 Respiratory 18 20 20 Rate Blood Pressure 142/91 O2 Sat by Pulse 99 Oximetry 05/25/19 05/25/19 05/25/19 18:11 18:22 18:24 Temperature Pulse Rate 87 90 80 Respiratory 20 Rate Blood Pressure 136/76 O2 Sat by Pulse 100 Oximetry 05/25/19 19:00 Temperature Pulse Rate 105 H Respiratory 18 Rate Blood Pressure 141/84 O2 Sat by Pulse 100 Oximetry - Reevaluation(s) Reevaluation #1: 05/25/19 17:57 Medical record is reviewed including prior surgery surgery and surgical evaluation Reevaluation #2: 05/25/19 19:47 Patient updated on findings. No significant pain symptoms are much improved - Consultations Consultation #1: Spoke with Dr. Gramajo for Dr. Nvaas regarding patient, will follow-up in office Medical Decision Making - Medical Decision Making 34 male DF for evaluation surgical history includes hiatal hernia surgery as well as recent gallbladder surgery CT is negative for PE no acute findings as abdomen chest. Labwork otherwise normal patient's resting comfortably and can be discharged home - Lab Data Result diagrams: 05/25/19 17:38 05/25/19 17:38 Lab Results 05/25/19 05/25/19 05/25/19 Range/Units 17:38 17:38 17:38 WBC 9.7 (3.8-10.6) k/uL RBC 5.58 (4.30-5.90) m/uL Hgb 15.9 (13.0-17.5) gm/dL Hct 47.9 (39.0-53.0) % MCV 85.8 (80.0-100.0) fL MCH 28.5 (25.0-35.0) pg MCHC 33.2 (31.0-37.0) g/dL RDW 12.3 (11.5-15.5) % Plt Count 319 (150-450) k/uL Neutrophils % 76 % Lymphocytes % 16 % Monocytes % 4 % Eosinophils % 1 % Basophils % 1 % Neutrophils # 7.3 (1.3-7.7) k/uL Lymphocytes # 1.6 (1.0-4.8) k/uL Monocytes # 0.4 (0-1.0) k/uL Eosinophils # 0.1 (0-0.7) k/uL Basophils # 0.1 (0-0.2) k/uL PT 9.5 (9.0-12.0) sec INR 0.9 (<1.2) APTT 22.8 (22.0-30.0) sec D-Dimer <0.17 (<0.60) mg/L FEU Sodium 140 (137-145) mmol/L Potassium 4.0 (3.5-5.1) mmol/L Chloride 108 H (98-107) mmol/L Carbon Dioxide 22 (22-30) mmol/L Anion Gap 10 mmol/L BUN 12 (9-20) mg/dL Creatinine 0.92 (0.66-1.25) mg/dL Est GFR (CKD-EPI)AfAm >90 (>60 ml/min/1.73 sqM) Est GFR (CKD-EPI)NonAf >90 (>60 ml/min/1.73 sqM) Glucose 96 (74-99) mg/dL Calcium 9.3 (8.4-10.2) mg/dL Magnesium 1.9 (1.6-2.3) mg/dL Total Bilirubin 0.4 (0.2-1.3) mg/dL AST 30 (17-59) U/L ALT 45 (4-49) U/L Alkaline Phosphatase 83 (38-126) U/L Troponin I (0.000-0.034) ng/mL Total Protein 6.6 (6.3-8.2) g/dL Albumin 4.1 (3.5-5.0) g/dL 05/25/19 Range/Units 17:38 WBC (3.8-10.6) k/uL RBC (4.30-5.90) m/uL Hgb (13.0-17.5) gm/dL Hct (39.0-53.0) % MCV (80.0-100.0) fL MCH (25.0-35.0) pg MCHC (31.0-37.0) g/dL RDW (11.5-15.5) % Plt Count (150-450) k/uL Neutrophils % % Lymphocytes % % Monocytes % % Eosinophils % % Basophils % % Neutrophils # (1.3-7.7) k/uL Lymphocytes # (1.0-4.8) k/uL Monocytes # (0-1.0) k/uL Eosinophils # (0-0.7) k/uL Basophils # (0-0.2) k/uL PT (9.0-12.0) sec INR (<1.2) APTT (22.0-30.0) sec D-Dimer (<0.60) mg/L FEU Sodium (137-145) mmol/L Potassium (3.5-5.1) mmol/L Chloride (98-107) mmol/L Carbon Dioxide (22-30) mmol/L Anion Gap mmol/L BUN (9-20) mg/dL Creatinine (0.66-1.25) mg/dL Est GFR (CKD-EPI)AfAm (>60 ml/min/1.73 sqM) Est GFR (CKD-EPI)NonAf (>60 ml/min/1.73 sqM) Glucose (74-99) mg/dL Calcium (8.4-10.2) mg/dL Magnesium (1.6-2.3) mg/dL Total Bilirubin (0.2-1.3) mg/dL AST (17-59) U/L ALT (4-49) U/L Alkaline Phosphatase (38-126) U/L Troponin I <0.012 (0.000-0.034) ng/mL Total Protein (6.3-8.2) g/dL Albumin (3.5-5.0) g/dL - EKG Data -: EKG Interpreted by Me (EKG shows sinus rhythm rate of 95, MO 160, QRS 134, QTC 439) - Radiology Data Radiology results: report reviewed (CT chest negative for PE CT and pelvis negative for postop process), image reviewed Disposition Clinical Impression: Status post cholecystectomy, Abdominal pain, Postoperative pain Disposition: HOME SELF-CARE Condition: Good Instructions (If sedation given, give patient instructions): Abdominal Pain (ED) Is patient prescribed a controlled substance at d/c from ED?: No Referrals: Pelon Yang MD [Primary Care Provider] - 1-2 days
[2019-05-25] MEDS ORDERED: SODIUM CHLORIDE 0.9% 500 ML 500 ML IV STA (18:01)
[2019-05-25] MEDS ORDERED: SODIUM CHLORIDE 0.9% 1,000 ML IV STA ×2 (18:01)
[2019-05-25] MEDS ORDERED: IPRATROPIUM-ALBUTEROL 3 ML NEB INHALATION STA (18:01)
[2019-05-25 18:22] LABS: Basophils # (A) 0.1 k/uL (0-0.2); Basophils % (A) 1 %; Eosinophils # (A) 0.1 k/uL (0-0.7); Eosinophils % (A) 1 %; HCT 47.9 % (39.0-53.0); HGB 15.9 gm/dL (13.0-17.5); Lymphocytes # (A) 1.6 k/uL (1.0-4.8); Lymphocytes % (A) 16 %; MCH 28.5 pg (25.0-35.0); MCHC 33.2 g/dL (31.0-37.0); MCV 85.8 fL (80.0-100.0); Mean Platelet Volume 8.7; Monocytes # (A) 0.4 k/uL (0-1.0); Monocytes % (A) 4 %; Neutrophils # (A) 7.3 k/uL (1.3-7.7); Neutrophils % (A) 76 %; Platelet Count 319 k/uL (150-450); RBC 5.58 m/uL (4.30-5.90); RDW 12.3 % (11.5-15.5); WBC 9.7 k/uL (3.8-10.6)
[2019-05-25 18:25] LABS: ALT 45 U/L (4-49); AST 30 U/L (17-59); African American GFR (CKD) >90 (>60 ml/min/1.73 sqM); Albumin 4.1 g/dL (3.5-5.0); Alkaline Phosphatase 83 U/L (38-126); Anion Gap 10 mmol/L; Blood Urea Nitrogen 12 mg/dL (9-20); Calcium 9.3 mg/dL (8.4-10.2); Carbon Dioxide 22 mmol/L (22-30); Chloride 108 mmol/L (98-107); Glucose 96 mg/dL (74-99); Magnesium 1.9 mg/dL (1.6-2.3); Non-African American GFR(CKD) >90 (>60 ml/min/1.73 sqM); Sodium 140 mmol/L (137-145); Total Bilirubin 0.4 mg/dL (0.2-1.3); Total Protein 6.6 g/dL (6.3-8.2)
[2019-05-25 18:33] LABS: D-Dimer <0.17 mg/L FEU (<0.60); INR 0.9 (<1.2); Partial Thromboplastin Time 22.8 sec (22.0-30.0); Prothrombin Time 9.5 sec (9.0-12.0)
--- NOTE | 2019-05-25 19:11 | CT ---
EXAMINATION TYPE: CT angio chest DATE OF EXAM: 05/25/2019 COMPARISON: None HISTORY: 34-year-old male SOB, Rt chest pain. Recent cholecystectomy 05-03-2019. History of Michele Fun doplasty, GERD TECHNIQUE: Contiguous axial scanning of the chest performed with IV Contrast, patient injected with 1 00 mL of Isovue 370. Coronal/sagittal MIP reconstructions performed. CT DLP: 1026.7 mGycm Automated exposure control for dose reduction was used. FINDINGS: Heart normal size without pericardial effusion. No flattening of the interventricular septum or reflu x of contrast into the hepatic veins. Aorta normal caliber with conventional branching anatomy. Scattered nonenlarged mediastinal lymph nodes. No thoracic lymphadenopathy by CT size criteria. There is some breathing motion artifacts throughout. Segmental and subsegmental branches of the left lower lobe in particular are very limited due to nondiagnostic. No definite pulmonary embolus elsewhe re in the lungs. Dependent atelectasis posterior lung bases. No consolidation or pleural effusion. There is a small hiatal hernia demonstrated with surgical changes below the GE junction of [place] fun doplication. Abdomen reported separately. Bones: No osseous destructive process. IMPRESSION: 1. BREATHING MOTION ARTIFACT. SEGMENTAL AND SUBSEGMENTAL BRANCHES OF THE LEFT LOWER LOBE ARE VERY CLARK ITED TO NONDIAGNOSTIC. NO EVIDENCE FOR PULMONARY EMBOLUS ELSEWHERE IN THE LUNGS. 2. NO ACUTE PULMONARY PROCESS. 3. STATUS POST MAGUE FUNDOPLICATION BUT WITH A RECURRENT SMALL HIATAL HERNIA LOCATED ABOVE THE WRAP. 4. ABDOMEN REPORTED SEPARATELY.
--- NOTE | 2019-05-25 19:15 | CT ---
EXAMINATION TYPE: CT abdomen pelvis w con DATE OF EXAM: 05/25/2019 COMPARISON: 04/20/2018 HISTORY: 34-year-old male SOB, Rt chest pain. Status post cholecystectomy on 05-03-2019. Also history of Michele Fundoplasty, GERD TECHNIQUE: Contiguous axial scanning of the abdomen and pelvis following administration of 100 ml Iso diana 370 IV contrast. Delayed images through the kidneys and coronal/sagittal reconstructions perform ed. CT DLP: 1026.7 mGycm Automated exposure control for dose reduction was used. FINDINGS: LUNG BASES: Status post Tae fundoplication. There is a small hiatal hernia located above the wrap. LIVER/GB: Liver measures larger 20.2 cm possibly due to the presence of a Deb's lobe. Cholecystect silvino clips are present. No abnormal fluid collection seen within the surgical bed. Portal venous syste m is patent. PANCREAS: No significant abnormality is seen. SPLEEN: Borderline enlarged at 13.8 cm. ADRENALS: No significant abnormality is seen. Lymph nodes: No mesenteric or retroperitoneal lymphadenopathy. KIDNEYS: No significant abnormality is seen. BOWEL: Some prominent fluid-filled small bowel loops in the lower abdomen are nonspecific, probably transient. No significant stool burden. Normal appendix. PELVIS: Mildly enlarged prostate at 4.1 cm wide. Bladder is urine distended. No abnormal fluid collec tion in the pelvis or pelvic lymphadenopathy. IMPRESSION: 1. Recurrent small hiatal hernia located above the Tae fundoplication. 2. Otherwise, no acute inflammatory process identified in the abdomen or pelvis to explain the patien t's symptoms. The cholecystectomy bed appears clear.
[2019-05-25 19:32] VITALS: BP 141/84; PULSE 105; RESP 18
== END 2019-05-25 20:04 | disposition home or self-care (01) ==
LOC: EC 17:19
DX: G89.18 Other acute postprocedural pain (principal); R10.9 Unspecified abdominal pain; Z90.49 Acquired absence of other specified parts of digestive tract; Z87.19 Personal history of other diseases of the digestive system; Z98.890 Other specified postprocedural states
CPT/HCPCS: 36415; 94640; 93005; 85379; 80053; 83735; 84484; 85025; 85610; 85730; 71275; 74177; 99285; 96360; 96361; Q9967

== ENCOUNTER 2019-10-22 14:37 | Emergency (ER) | payer OTHER ==
[2019-10-22 14:48] VITALS: RESP 18; TEMP 98.9
[2019-10-22] MEDS ORDERED: ALBUTEROL HFA INHALER INHALATION STA (15:07)
[2019-10-22] MEDS ORDERED: ONDANSETRON ODT 4 MG TAB PO STA (15:12)
--- NOTE | 2019-10-22 15:12 | ED ---
General Adult HPI - General Chief complaint: Shortness of Breath Stated complaint: SOB Time Seen by Provider: 10/22/19 14:48 Source: patient, RN notes reviewed Mode of arrival: ambulatory Limitations: no limitations - History of Present Illness Initial comments: 34-year-old male presents to the emergency room for a chief complaint of shortness of breath. Patient states he has been short of breath since yesterday. States this started when he developed a cough. States cough is nonproductive. States he also has associated nausea. Denies vomiting. Denies diarrhea. Patient denies history of asthma. Denies smoking. States coughing makes his shortness of breath worse. Denies any chest pain associated with this.patient is concerned that he has coronavirus. 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 Patient has no other complaints at this time including chest pain, abdominal pain, nausea or vomiting, headache, or visual changes. - Related Data Previous Rx's Medication Instructions Recorded Ondansetron [Zofran ODT] 4 mg PO Q8HR PRN #15 tab 10/22/19 Allergies Allergy/AdvReac Type Severity Reaction Status Date / Time No Known Allergies Allergy Verified 10/22/19 15:47 Review of Systems ROS Statement: Those systems with pertinent positive or pertinent negative responses have been documented in the HPI. ROS Other: All systems not noted in ROS Statement are negative. Past Medical History Past Medical History: GERD/Reflux Additional Past Medical History / Comment(s): GERD RESOLVED, Hx. of constipation & diarrhea. History of Any Multi-Drug Resistant Organisms: None Reported Past Surgical History: Cholecystectomy Additional Past Surgical History / Comment(s): SARAH FUNDOPLASTY ,Tumor removal from neck as a child, colonoscopy. Past Anesthesia/Blood Transfusion Reactions: No Reported Reaction Past Psychological History: No Psychological Hx Reported Smoking Status: Never smoker Past Alcohol Use History: Rare Past Drug Use History: None Reported - Past Family History Mother Family Medical History: No Reported History General Exam Limitations: no limitations General appearance: alert, in no apparent distress Head exam: Present: atraumatic, normocephalic, normal inspection Eye exam: Present: normal appearance, PERRL, EOMI. Absent: scleral icterus, conjunctival injection, periorbital swelling ENT exam: Present: normal exam, mucous membranes moist Neck exam: Present: normal inspection. Absent: tenderness, meningismus, lymphadenopathy Respiratory exam: Present: normal lung sounds bilaterally. Absent: respiratory distress, wheezes, rales, rhonchi, stridor Cardiovascular Exam: Present: regular rate, normal rhythm, normal heart sounds. Absent: systolic murmur, diastolic murmur, rubs, gallop, clicks GI/Abdominal exam: Present: soft, normal bowel sounds. Absent: distended, tenderness, guarding, rebound, rigid Course Vital Signs 10/22/19 10/22/19 14:46 15:02 Temperature 98.9 F Pulse Rate 94 Respiratory 18 18 Rate Blood Pressure 141/86 O2 Sat by Pulse 98 Oximetry EKG Findings - EKG Comments: EKG Findings:: Normal sinus rhythm, ventricular rate 83, [place] interval 168, QTC 401 Medical Decision Making - Medical Decision Making Vitals are stable. Patient is 98% on room air. Patient has a cough, shortness of breath, nausea, headache. No fever. Patient is concerned he has coronavirus. Lung sounds are clear. Patient is in no respiratory distress. EKG appeared nonischemic. Chest x-ray showed no acute process. Coronavirus is pending and should come back in the next 12-24 hours. Patient with exertional to follow-up with primary care. He will return here for any worsening symptoms. Disposition Clinical Impression: Cough Disposition: HOME SELF-CARE Condition: Good Instructions (If sedation given, give patient instructions): Acute Cough (ED) Additional Instructions: Please take [id number] cold medicines. Take Zofran for nausea. Please follow-up with primary care in 1-2 days. If you have any worsening symptoms return here to the emergency room. Prescriptions: Ondansetron [Zofran ODT] 4 mg PO Q8HR PRN #15 tab PRN Reason: Nausea Is patient prescribed a controlled substance at d/c from ED?: No Referrals: Pelon Yang MD [Primary Care Provider] - 1-2 days Time of Disposition: 15:50
--- NOTE | 2019-10-22 15:39 | XR ---
EXAMINATION TYPE: XR chest 1V portable DATE OF EXAM: 10/22/2019 COMPARISON: 02/05/2019 HISTORY: Chest pain TECHNIQUE: Single frontal view of the chest is obtained. FINDINGS: There is no focal air space opacity, pleural effusion, or pneumothorax seen. The cardiac silhouette size is within normal limits. The osseous structures are intact. IMPRESSION: 1. No acute process.
[2019-10-22 16:06] VITALS: BP 140/80; PULSE 80
== END 2019-10-22 16:04 | disposition home or self-care (01) ==
LOC: EC 14:37
DX: R05 Cough (principal); R11.0 Nausea; Z20.828 Contact with and (suspected) exposure to other viral communicable diseases; R06.02 Shortness of breath; R51 Headache
CPT/HCPCS: 99285 ×2; 94640; 93005; 71045; U0003

== ENCOUNTER → 2020-03-05 | Outpatient (CLI) | payer OTHER ==
--- NOTE | 2020-03-05 12:04 | FL ---
EXAMINATION TYPE: FL UGI air w esophagus DATE OF EXAM: 03/05/2020 COMPARISON: Previous exam 05/10/2018 HISTORY: Dysphasia TECHNIQUE: A double contrast UGI study is performed. FINDINGS: Expenditure Requisition Clerk image of the abdomen shows no gross abnormality. The esophagus shows normal motility and emptying into the stomach is remarkable for postop change at the gastroesophageal junction, there is no hesitancy of flow into the stomach. No evidence of strict ure noted. There is a hiatal hernia present which is likely recurrent adjacent to the distal esophagu s. The stomach shows normal distensibility, peristalsis, and mucosal folds. No evidence of any mass or ulcer disease. No significant gastroesophageal reflux was seen during real time performance of this study. The duodenal bulb, sweep, and proximal small bowel loops are unremarkable. IMPRESSION: Findings suggest recurrence of hiatal hernia. 1 minute 58 seconds fluoroscopy time, 19 images obtained
== END | disposition home or self-care (01) ==
LOC: RADUSWWP 08:54
PROVIDERS: ATTEND Surgery
DX: R13.10 Dysphagia, unspecified (principal)
CPT/HCPCS: 74246

== ENCOUNTER 2020-03-12 08:35 | Day surgery (SDC) | payer OTHER ==
[2020-03-10 16:13] VITALS: BMI 22.1
[~2020-03-12 08:35] MED LIST changes: -DEXAMETHASONE SOD PHOSPHATE 10 MG/ML 1 ML VIAL IV ONE; -HEPARIN SODIUM,PORCINE 5,000 UNIT/ML 1 ML VIAL SQ ONE; +LACTATED RINGERS 1,000 ML IV SCH; +LIDOCAINE 1% (10MG/ML) FOR IV START INTRADERMA PRN; -MIDAZOLAM 2 MG/2 ML VIAL IV PRN; -ONDANSETRON 4 MG/2 ML VIAL IVP ONE; -SCOPOLAMINE 1.5MG/72HR PATCH TRANSDERM ONE
[2020-03-12] MEDS ORDERED: PROPOFOL 10 MG/ML 20 ML VIAL IV ONE (09:35)
[2020-03-12] MEDS ORDERED: LIDOCAINE 1% INJ 10MG/ML (20 ML MDV) ONE (09:35)
--- NOTE | 2020-03-12 09:35 | P.GSHP ---
History of Present Illness H&P Date: 03/12/20 Chief Complaint: GERD, dysphagia Is a 34-year-old male presents today for EGD. He's issues GERD and dysphagia. His recent exam shows evidence of recurrent hiatal hernia. Past Medical History Past Medical History: GERD/Reflux Additional Past Medical History / Comment(s): hx migraines, hiatal hernia, History of Any Multi-Drug Resistant Organisms: None Reported Past Surgical History: Cholecystectomy Additional Past Surgical History / Comment(s): SARAH FUNDOPLASTY ,Tumor removal from neck as a child, colonoscopy. EGD Past Anesthesia/Blood Transfusion Reactions: No Reported Reaction Smoking Status: Never smoker - Past Family History Mother Family Medical History: No Reported History Medications and Allergies Home Medications Medication Instructions Recorded Confirmed Type No Known Home Medications 03/10/20 03/12/20 History Allergies Allergy/AdvReac Type Severity Reaction Status Date / Time No Known Allergies Allergy Verified 03/12/20 09:15 Surgical - Exam - General well developed, well nourished, no distress - Eyes PERRL - ENT normal pinna - Neck no masses - Respiratory normal expansion - Cardiovascular Rhythm: regular - Abdomen Abdomen: soft, non tender Assessment and Plan Assessment: GERD, dysphagia. We'll perform EGD.
[2020-03-12 09:36] VITALS: RESP 16; TEMP 98.5
--- NOTE | 2020-03-12 09:47 | P.OP ---
Date of Procedure: 03/12/20 Preoperative Diagnosis: GERD Dysphagia Postoperative Diagnosis: Antral gastritis Esophagitis Small recurrent hiatal hernia Procedure(s) Performed: EGD Anesthesia: MAC Surgeon: Gab Navas Condition: stable Disposition: PACU Description of Procedure: The patient's placed on the endoscopy table lateral position. He received IV sedation. The gastroscope was oropharynx passed in the esophagus into stomach. Scope was then placed through the pylorus. The first and second portion of duodenum appeared normal. [place] was then brought back the antrum this is then retroflexed the remainder some appeared normal. The GE junction was at 47 is.. Evidence of a small recurrent hiatal hernia. The distal esophagus mildly inflam ed. A biopsies performed. The proximal esophagus appeared normal. Scope from patient.
[2020-03-12 10:07] VITALS: BP 117/83; PULSE 76
== END 2020-03-12 10:27 | disposition home or self-care (01) ==
LOC: ORWHC2ENDO 08:35
PROVIDERS: ATTEND Surgery
DX: K29.50 Unspecified chronic gastritis without bleeding (principal); K21.00 Gastro-esophageal reflux disease with esophagitis, without bleeding; K44.9 Diaphragmatic hernia without obstruction or gangrene; G43.909 Migraine, unspecified, not intractable, without status migrainosus; Z90.49 Acquired absence of other specified parts of digestive tract; Z98.890 Other specified postprocedural states
CPT/HCPCS: 43239; J2001; J2704; 88305

== ENCOUNTER 2020-03-23 06:23 | Emergency (ER) | payer OTHER ==
[2020-03-23] MEDS ORDERED: PANTOPRAZOLE 40 MG/10 ML VIAL IVP STA (07:16)
[2020-03-23] MEDS ORDERED: ONDANSETRON 4 MG/2 ML VIAL IVP STA (07:16)
[2020-03-23] MEDS ORDERED: IOPAMIDOL CONTRAST (ORAL USE) VIAL PO PRN (07:16)
[2020-03-23] MEDS ORDERED: SODIUM CHLORIDE 0.9% 1,000 ML IV STA (07:16)
[2020-03-23] MEDS ORDERED: HYDROmorphone 0.5 MG/0.5 ML SYRINGE IVP STA (07:17)
--- NOTE | 2020-03-23 07:30 | ED ---
General Adult HPI - General Chief complaint: Abdominal Pain Stated complaint: Abd pain Time Seen by Provider: 03/23/20 06:55 Source: patient, RN notes reviewed Mode of arrival: ambulatory Limitations: no limitations - History of Present Illness Initial comments: Patient is a pleasant 34-year-old male presenting to the emergency Department with complaints of abdominal discomfort. Onset of symptoms was in the middle the night. Discomfort was somewhat severe however now is moderate. Discomfort is currently 6/10. Discomfort is near the umbilicus. Patient does have nausea which does continue. Patient had one episode of emesis with some blood stre aking. Patient does have some chronic loose stools, unchanged. No fevers. Patient did have upper endoscopy around 1 week ago in preparation for surgery later this week with Dr. Navas. - Related Data Home Medications Medication Instructions Recorded Confirmed No Known Home Medications 03/10/20 03/23/20 Allergies Allergy/AdvReac Type Severity Reaction Status Date / Time No Known Allergies Allergy Verified 03/23/20 08:48 Review of Systems ROS Statement: Those systems with pertinent positive or pertinent negative responses have been documented in the HPI. ROS Other: All systems not noted in ROS Statement are negative. Constitutional: Denies: fever Eyes: Denies: eye pain ENT: Denies: ear pain Respiratory: Denies: cough Cardiovascular: Denies: chest pain Endocrine: Denies: fatigue Gastrointestinal: Reports: as per HPI, abdominal pain, nausea, vomiting Genitourinary: Denies: dysuria Musculoskeletal: Denies: back pain Skin: Denies: rash Neurological: Denies: weakness Past Medical History Past Medical History: GERD/Reflux Additional Past Medical History / Comment(s): GERD RESOLVED, Hx. of constipation & diarrhea. History of Any Multi-Drug Resistant Organisms: None Reported Past Surgical History: Cholecystectomy Additional Past Surgical History / Comment(s): SARAH FUNDOPLASTY ,Tumor removal from neck as a child, colonoscopy. Past Anesthesia/Blood Transfusion Reactions: No Reported Reaction Past Psychological History: No Psychological Hx Reported Smoking Status: Never smoker Past Alcohol Use History: None Reported Past Drug Use History: None Reported - Past Family History Mother Family Medical History: No Reported History General Exam Limitations: no limitations General appearance: alert, in no apparent distress Head exam: Present: normocephalic Eye exam: Present: normal appearance ENT exam: Present: normal oropharynx Neck exam: Present: normal inspection Respiratory exam: Present: normal lung sounds bilaterally Cardiovascular Exam: Present: regular rate, normal rhythm Expanded Peripheral pulses: 2+: Posterior Tibialis (R), Posterior Tibialis (L), Dorsalis Pedis (R), Dorsalis Pedis (L) GI/Abdominal exam: Present: soft, tenderness (Moderate tenderness in the epigastrium and. Buccal region), normal bowel sounds. Absent: distended, guarding, rebound, rigid, pulsatile mass Extremities exam: Present: normal inspection Neurological exam: Present: alert Psychiatric exam: Present: normal affect, normal mood Skin exam: Present: normal color Course Vital Signs 03/23/20 06:53 Temperature 99.0 F Pulse Rate 89 Respiratory 16 Rate Blood Pressure 151/97 O2 Sat by Pulse 99 Oximetry Medical Decision Making - Medical Decision Making Patient reevaluated and feeling much better. Patient updated on results. Patient is comfortable being discharged home. Case was discussed in detail with Dr. Navas who is familiar with this patient and is also okay with discharge. - Lab Data Result diagrams: 03/23/20 07:34 03/23/20 07:17 Lab Results 03/23/20 03/23/20 03/23/20 Range/Units 07:17 07:17 07:34 WBC 6.5 (3.8-10.6) k/uL RBC 5.23 (4.30-5.90) m/uL Hgb 15.6 (13.0-17.5) gm/dL Hct 45.1 (39.0-53.0) % MCV 86.1 (80.0-100.0) fL MCH 29.9 (25.0-35.0) pg MCHC 34.7 (31.0-37.0) g/dL RDW 12.2 (11.5-15.5) % Plt Count 268 (150-450) k/uL MPV 8.2 Neutrophils % 72 % Lymphocytes % 19 % Monocytes % 6 % Eosinophils % 1 % Basophils % 1 % Neutrophils # 4.7 (1.3-7.7) k/uL Lymphocytes # 1.2 (1.0-4.8) k/uL Monocytes # 0.4 (0-1.0) k/uL Eosinophils # 0.1 (0-0.7) k/uL Basophils # 0.0 (0-0.2) k/uL PT 9.6 (9.0-12.0) sec INR 0.9 (<1.2) APTT 22.8 (22.0-30.0) sec Sodium 139 (137-145) mmol/L Potassium 4.3 (3.5-5.1) mmol/L Chloride 107 (98-107) mmol/L Carbon Dioxide 28 (22-30) mmol/L Anion Gap 4 mmol/L BUN 11 (9-20) mg/dL Creatinine 1.05 (0.66-1.25) mg/dL Est GFR (CKD-EPI)AfAm >90 (>60 ml/min/1.73 sqM) Est GFR (CKD-EPI)NonAf >90 (>60 ml/min/1.73 sqM) Glucose 89 (74-99) mg/dL Calcium 9.2 (8.4-10.2) mg/dL Total Bilirubin 0.4 (0.2-1.3) mg/dL AST 27 (17-59) U/L ALT 31 (4-49) U/L Alkaline Phosphatase 67 (38-126) U/L Total Protein 5.7 L (6.3-8.2) g/dL Albumin 3.5 (3.5-5.0) g/dL Amylase 44 (30-110) U/L Lipase 150 (23-300) U/L - Radiology Data Radiology results: report reviewed (Computed tomography scan abdomen pelvis reveals no acute process) Disposition Clinical Impression: Abdominal pain, Hematemesis Disposition: HOME SELF-CARE Condition: Stable Instructions (If sedation given, give patient instructions): Abdominal Pain (ED), Hematemesis (ED) Additional Instructions: Please follow-up with primary care physician and Dr. Navas in the next day or 2 for recheck. Return for increased pain, fever, increased vomiting, vomiting blood, any other areas of bleeding, worsening symptoms or other concerns. Is patient prescribed a controlled substance at d/c from ED?: No Referrals: Pelon Yang MD [Primary Care Provider] - 1-2 days aGb Navas MD [STAFF PHYSICIAN] - 1-2 days Time of Disposition: 09:57
[2020-03-23 08:25] LABS: Basophils % (A) 1 %; Eosinophils # (A) 0.1 k/uL (0-0.7); Eosinophils % (A) 1 %; HCT 45.1 % (39.0-53.0); HGB 15.6 gm/dL (13.0-17.5); Lymphocytes # (A) 1.2 k/uL (1.0-4.8); Lymphocytes % (A) 19 %; MCH 29.9 pg (25.0-35.0); MCHC 34.7 g/dL (31.0-37.0); MCV 86.1 fL (80.0-100.0); Mean Platelet Volume 8.2; Monocytes # (A) 0.4 k/uL (0-1.0); Monocytes % (A) 6 %; Neutrophils # (A) 4.7 k/uL (1.3-7.7); Neutrophils % (A) 72 %; Platelet Count 268 k/uL (150-450); RBC 5.23 m/uL (4.30-5.90); RDW 12.2 % (11.5-15.5); WBC 6.5 k/uL (3.8-10.6)
[2020-03-23 08:27] LABS: ALT 31 U/L (4-49); AST 27 U/L (17-59); African American GFR (CKD) >90 (>60 ml/min/1.73 sqM); Albumin 3.5 g/dL (3.5-5.0); Alkaline Phosphatase 67 U/L (38-126); Amylase 44 U/L (30-110); Anion Gap 4 mmol/L; Blood Urea Nitrogen 11 mg/dL (9-20); Calcium 9.2 mg/dL (8.4-10.2); Carbon Dioxide 28 mmol/L (22-30); Chloride 107 mmol/L (98-107); Glucose 89 mg/dL (74-99); Lipase 150 U/L (23-300); Non-African American GFR(CKD) >90 (>60 ml/min/1.73 sqM); Potassium 4.3 mmol/L (3.5-5.1); Sodium 139 mmol/L (137-145); Total Bilirubin 0.4 mg/dL (0.2-1.3); Total Protein 5.7 g/dL (6.3-8.2)
[2020-03-23 08:44] LABS: INR 0.9 (<1.2); Partial Thromboplastin Time 22.8 sec (22.0-30.0); Prothrombin Time 9.6 sec (9.0-12.0)
--- NOTE | 2020-03-23 09:12 | CT ---
EXAMINATION TYPE: CT abdomen pelvis w con DATE OF EXAM: 03/23/2020 COMPARISON: 05/25/2019 INDICATION: Centralized abd pain, hematemesis DLP: 731.8 mGycm, Automated exposure control for dose reduction was used. CONTRAST: 100 mL of Isovue 300. Study performed with Oral Contrast TECHNIQUE: Axial images were obtained from above the diaphragm to the pubic rami in the axial plane a t 5 mm thick sections. Reconstructed images are reviewed on the computer in the coronal plane. FINDINGS: Limited CT sections are obtained the lung bases. The lung bases are clear. CT ABDOMEN: Liver: Normal Spleen: Normal Pancreas: Normal Adrenal glands: The adrenal glands are normal. Gallbladder: Surgically absent Kidneys: No masses are evident. No hydronephrosis is present. No cysts are present. Delayed images were obtained through the kidneys, which remain unremarkable. Aorta: Vascular calcification is within the aorta. Inferior vena cava: Normal. CT PELVIS: Loops of bowel within the abdomen and pelvis are normal. Scattered diverticuli are within the sigmoid colon. No adjacent inflammatory changes are evident. The stomach appears unremarkable There are l oops of bowel which are incompletely distended or lack oral contrast limiting their evaluation. Appendix: An appendicolith is present. No adjacent inflammatory changes or dilated appendix is eviden t. Urinary bladder: Normal. Genitourinary structures: Prostate is somewhat prominent. Osseous structures: No suspicious lytic or sclerotic lesions. IMPRESSIONS: 1. No suspicious acute abnormality. 2. Diverticulosis without acute diverticulitis. 3. Note is made of an appendicolith. The appendix otherwise appears normal at this time.
[2020-03-23 10:08] VITALS: BP 128/80; PULSE 85; RESP 18; TEMP 98.7
== END 2020-03-23 10:08 | disposition home or self-care (01) ==
LOC: EC 06:23
DX: K92.0 Hematemesis (principal); R10.9 Unspecified abdominal pain; R10.816 Epigastric abdominal tenderness
CPT/HCPCS: 36415; 80053; 82150; 83690; 85025; 85610; 85730; 74177; 99284; 96374; 96375 ×2; 96361 ×2; J2405; C9113; J1170; Q9967

== ENCOUNTER → 2020-03-26 | Day surgery (SDC) | payer OTHER ==
[2020-03-23 11:43] VITALS: BMI 22.1
[~2020-03-26] MED LIST changes: +ACETAMINOPHEN TAB 500 MG TAB PO PRN; +DEXAMETHASONE SOD PHOSPHATE 4 MG/ML 1 ML VIAL IV ONE; +HEPARIN SODIUM,PORCINE 5,000 UNIT/ML 1 ML VIAL SQ PRN; +HYDROmorphone 0.5 MG/0.5 ML SYRINGE IVP PRN; -LIDOCAINE 1% (10MG/ML) FOR IV START INTRADERMA PRN; +MIDAZOLAM 2 MG/2 ML VIAL IV PRN; +ONDANSETRON 4 MG/2 ML VIAL IVP ONE; +SCOPOLAMINE 1.5MG/72HR PATCH TRANSDERM ONE
== END ==
LOC: OR 07:56
PROVIDERS: ATTEND Surgery
DX: Z53.9 Procedure and treatment not carried out, unspecified reason (principal)

== ENCOUNTER 2020-04-08 09:38 | Observation (INO) | payer OTHER ==
[~2020-04-08 09:38] MED LIST changes: -DEXAMETHASONE SOD PHOSPHATE 4 MG/ML 1 ML VIAL IV ONE; -HYDROmorphone 0.5 MG/0.5 ML SYRINGE IVP PRN; -LACTATED RINGERS 1,000 ML IV SCH; -MIDAZOLAM 2 MG/2 ML VIAL IV PRN; -ONDANSETRON 4 MG/2 ML VIAL IVP ONE; -SCOPOLAMINE 1.5MG/72HR PATCH TRANSDERM ONE
[2020-04-08] MEDS ORDERED: ONDANSETRON 4 MG/2 ML VIAL ONE (10:14)
[2020-04-08] MEDS ORDERED: LIDOCAINE 1% (10MG/ML) FOR IV START INTRADERMA ONE (10:19)
[2020-04-08] MEDS ORDERED: LACTATED RINGERS 1,000 ML IV ONE ×2 (10:19→14:26)
[2020-04-08] MEDS: ONDANSETRON 4 MG/2 ML VIAL IVP ONE ×2 (10:22→13:48)
[2020-04-08] MEDS ORDERED: DEXAMETHASONE SOD PHOSPHATE 4 MG/ML 1 ML VIAL IV ONE (10:22)
--- NOTE | 2020-04-08 11:56 | P.GSHP ---
History of Present Illness H&P Date: 04/08/20 Chief Complaint: GERD, dysphagia Is a 32-year-old male developed a paraesophageal hernia. Patient rents today for laparoscopic hiatal hernia.. Patient had issues with GERD and dysphagia. Past Medical History Past Medical History: GERD/Reflux Additional Past Medical History / Comment(s): ER visit 03-23-20 for abd. pain, hiatal hernia, hx. migraines History of Any Multi-Drug Resistant Organisms: None Reported Past Surgical History: Cholecystectomy Additional Past Surgical History / Comment(s): SARAH FUNDOPLASTY ,Tumor removal from neck as a child, colonoscopy, EGD Past Anesthesia/Blood Transfusion Reactions: No Reported Reaction Past Psychological History: No Psychological Hx Reported Smoking Status: Never smoker Past Alcohol Use History: Rare Past Drug Use History: None Reported - Past Family History Mother Family Medical History: No Reported History Medications and Allergies Home Medications Medication Instructions Recorded Confirmed Type Omeprazole [PriLOSEC] 20 mg PO AC-BRKFST 03/23/20 04/08/20 History Allergies Allergy/AdvReac Type Severity Reaction Status Date / Time No Known Allergies Allergy Verified 04/08/20 09:53 Surgical - Exam Vital Signs Temp Pulse Resp BP Pulse Ox 99.2 F 104 H 16 141/91 98 04/08/20 10:03 04/08/20 10:03 04/08/20 10:03 04/08/20 10:03 04/08/20 10:03 - General well developed, well nourished, no distress - Eyes PERRL - ENT normal pinna - Neck no masses - Respiratory normal expansion - Cardiovascular Rhythm: regular - Abdomen Abdomen: soft, non tender Assessment and Plan Assessment: para Esophageal hernia We'll perform laparoscopic hiatal hernia repair.
[2020-04-08] MEDS ORDERED: GLYCOPYRROLATE 0.2 MG/ML 2 ML VIAL ONE (12:13)
[2020-04-08] MEDS ORDERED: SUCCINYLCHOLINE CHLORIDE 100 MG/5 ML SYR IV ONE (12:13)
[2020-04-08] MEDS ORDERED: PROPOFOL 10 MG/ML 20 ML VIAL IV ONE (12:13)
[2020-04-08] MEDS ORDERED: fentaNYL (PF) 50 MCG/ML 2 ML AMP ONE (12:13)
[2020-04-08] MEDS ORDERED: NEOSTIGMINE 1 MG/ML 10 ML VIAL ONE (12:13)
[2020-04-08] MEDS ORDERED: LIDOCAINE 1% INJ 10MG/ML (20 ML MDV) ONE (12:13)
[2020-04-08] MEDS ORDERED: ROCURONIUM 10 MG/ML (10 ML VIAL) IV ONE (12:13)
[2020-04-08] MEDS ORDERED: BUPIVACAIN-EPI 0.5%-1:200,000 30 ML VIAL SQ ONE (12:51)
--- NOTE | 2020-04-08 13:20 | P.OP ---
Date of Procedure: 04/08/20 Preoperative Diagnosis: Paraesophageal hernia Postoperative Diagnosis: Paraesophageal hernia Procedure(s) Performed: Laparoscopic repair of paraesophageal hernia Anesthesia: DELMA Surgeon: Gab Navas Estimated Blood Loss (ml): 5 Pathology: none sent Condition: stable Disposition: PACU Description of Procedure: Juarez patient was placed on the operating table in the supine position. The patient received general anesthesia. And was placed in dorsal lithotomy position. The patient was prepped and draped in the usual sterile fashion. The skin incision sites were anesthetized with 1% local Xylocaine. The skin was incised in the left periumbilical area and then using a blade less 5 mm trocar under direct visualization panel cavity was entered. After adequate insufflation the laparoscope was then placed into the peritoneal cavity. Next a 5 mm trochars placed in the right epigastric position. Another 5 millimeter trocar the right lateral position. Another 5 millimeter trocar in the left lateral position a 5 mm trocar is placed in the left epigastric position. And then the initial 5 mm trocar was exchanged for a 10 mm trocar. The left lateral lobe liver was retracted. The patient a previous Tae fundal plication. The adhesions to the fundoplication wrap were lysed using sharp dissection. The fundoplication wrap was taken down. The parents opted hernia was visualized. The morgan was dissected. The crural repair was then performed using 2-0 Ethibond suture. The entire stomach was visualized within the abdomen. There is no evidence of any injury to the stomach or the esophagus. At this point the trochars withdrawn. The stomach was deflated. Skin was closed Monocryl suture. Dermabond was applied. Patient top she will was sent to recovery in stable condition.
[2020-04-08] MEDS: HYDROmorphone 0.5 MG/0.5 ML SYRINGE IVP ONE ×2 (13:48→14:14)
[2020-04-08] MEDS: D5-0.45% NACL WITH KCL 20MEQ/L 1,000 ML IV SCH (16:50)
[2020-04-08] MEDS ORDERED: HYDROmorphone 1 MG/ML 1 ML SYRINGE IM PRN (17:33)
[2020-04-08] MEDS: HYDROmorphone 0.5 MG/0.5 ML SYRINGE IVP PRN ×2 (17:58→22:24)
[2020-04-09] MEDS: D5-0.45% NACL WITH KCL 20MEQ/L 1,000 ML IV SCH ×2 (00:05→07:50)
[2020-04-09] MEDS ORDERED: HYDROmorphone 1 MG/ML 1 ML SYRINGE IVP PRN (01:52)
[2020-04-09 07:44] VITALS: RESP 16
[2020-04-09] MEDS ORDERED: ENOXAPARIN 40 MG/0.4 ML SYRINGE SQ SCH (09:00)
[2020-04-09] MEDS: HYDROmorphone 0.5 MG/0.5 ML SYRINGE IVP PRN (11:12)
--- NOTE | 2020-04-09 11:43 | FL ---
EXAMINATION TYPE: FL esophagus cervic/pharynx DATE OF EXAM: 04/09/2020 LIMITED UGI-ESOPHAGRAM: CLINICAL HISTORY: Michele fundoplication revision TECHNIQUE: Limited esophagram is performed utilizing Isovue 370. A total of 1.25 minutes of fluorosc opic time was utilized during procedure. 22 images were obtained. FINDINGS: There is moderate free air identified on the fluoroscopy images. There is moderate hesitancy of contrast passing through the level of the Michele fundoplication. No ex travasation of contrast is evident. IMPRESSION: No evidence of leak or significant obstruction status post Michele fundoplication surgery. .
[2020-04-09] MEDS ORDERED: HYDROcodone/APAP 5-325MG 1 EACH TAB PO PRN (12:31)
[2020-04-09 12:44] VITALS: BMI 22.3
--- NOTE | 2020-04-09 14:21 | CONS ---
CONSULTATION A 34-year-old white male who was admitted with a Michele procedure for stat GERD. He has had no chest pain, shortness of breath. No lightheadedness, dizziness, syncope. He has had GERD reflux for a long time. SURGERIES: He has had cholecystectomy. 14-POINT REVIEW OF SYSTEMS: Otherwise is negative. MEDS: At home include Prilosec 20 mg daily. ALLERGIES: No known drug allergies. Temperature is 99, blood pressure 140s/90, respiratory 16 to 18, pulse is low 100. HEENT: Within normal limits. CARDIOVASCULAR: S1, S2. LUNGS: Clear. GI: Mildly tender due to incision. EXTREMITIES: No edema. ASSESSMENT: Status post Michele, history GERD. Medically stable from medical standpoint. Please see further orders. MMODL / IJN: [id number] /
--- NOTE | 2020-04-09 14:21 | P.DS ---
Providers Date of admission: 04/09/20 00:15 Expected date of discharge: 04/09/20 Attending physician: Gab Navas Consults: 04/08/20 13:20 Consult Physician Routine Consulting Provider: Pelon Yang Reason/Comments: Medical management Do you want consulting provider notified?: Yes Primary care physician: Pelon Yang Hospital Course: Discharge diagnosis 1. Paraesophageal hernia status post laparoscopic repair of paraesophageal hernia Hospital course This is a 32-year-old male who developed a paraesophageal hernia. He had issues with GERD and dysphagia. He is now status post laparoscopic repair of paraesophageal hernia. He is tolerating diet. His upper GI showed no evidence of leak or obstruction. His pain is controlled. He denies any difficulty s wallowing. He is passing gas. He is afebrile. He is up and ambulating. He is stable for discharge. Please refer to chart for further details. Physician [employer] note has been reviewed by physician. Signing provider agrees with the documented findings, assessment, and plan of care. Patient Condition at Discharge: Stable Plan - Discharge Summary Discharge Rx Participant: No New Discharge Prescriptions: New Docusate [Colace] 100 mg PO BID #30 capsule Hydrocodone/Acetaminophen [Porter 5-325] 1 tab PO Q6HR PRN #10 tab PRN Reason: Pain Continue Omeprazole [PriLOSEC] 20 mg PO AC-BRKFST Discharge Medication List Omeprazole [PriLOSEC] 20 mg PO AC-BRKFST 03/23/20 [History] Docusate [Colace] 100 mg PO BID #30 capsule 04/09/20 [Rx] Hydrocodone/Acetaminophen [Porter 5-325] 1 tab PO Q6HR PRN #10 tab 04/09/20 [Rx] Follow up Appointment(s)/Referral(s): Gab Navas MD [STAFF PHYSICIAN] - 04/30/20 1:40 pm Activity/Diet/Wound Care/Special Instructions: No driving while taking Porter No lifting over 10 pounds You may shower. No soaking or tub baths for 2 weeks Very light activity until you are reevaluated at your follow up appointment with your surgeon Discharge Disposition: HOME SELF-CARE
[2020-04-09 14:51] VITALS: BP 130/98; PULSE 93; TEMP 99
== END 2020-04-09 15:25 | disposition home or self-care (01) ==
LOC: OR 09:38 → 5NMEDONC 13:32 → OR 04-09 00:27
PROVIDERS: ADMIT Surgery; ATTEND Surgery
DX: K44.9 Diaphragmatic hernia without obstruction or gangrene (principal); K21.9 Gastro-esophageal reflux disease without esophagitis; G43.909 Migraine, unspecified, not intractable, without status migrainosus; Z79.899 Other long term (current) drug therapy; Z90.49 Acquired absence of other specified parts of digestive tract; Z98.890 Other specified postprocedural states
CPT/HCPCS: 74210; 43281; G0378; J1644; J1100; J2710; J0690; J2405; J2001; J1650; J3010; J1170 ×3; J0330; J2704; Q9967

== ENCOUNTER 2020-09-06 19:52 | Emergency (ER) | payer OTHER ==
--- NOTE | 2020-09-06 20:28 | ED ---
Nausea/Vomiting/Diarrhea HPI - General Source: patient Mode of arrival: ambulatory Limitations: no limitations <Mei العراقي - Last Filed: 09/06/20 21:58> <Ines Li - Last Filed: 09/06/20 23:00> - General Chief complaint: Nausea/Vomiting/Diarrhea Stated complaint: Side Pain, Vomiting Time Seen by Provider: 09/06/20 19:59 - History of Present Illness Initial comments: 35-year-old male presenting today for chief complaint of neck stiffness nausea vomiting visual changes. Patient states that he's had neck stiffness since Monday. Patient states that today he felt nauseated and upset of vomiting after vomiting he felt like he strained his right side of his abdomen he had some pain he states that he had no pain prior to vomiting. Patient denies any known fevers. He denies headaches. He states that when the nausea/vomiting occurred he had some blurring of vision that resolved. Denies vision loss, diplopia, dizziness. Pt denies chest pain, dyspnea, RLQ pain, blood in vomit or stool. Patient on arrival appears well nontoxic in no acute distress. (Mei العراقي) - Related Data Home Medications Medication Instructions Recorded Confirmed Omeprazole [PriLOSEC] 20 mg PO AC-BRKFST 03/23/20 04/08/20 Previous Rx's Medication Instructions Recorded Docusate [Colace] 100 mg PO BID #30 capsule 04/09/20 Hydrocodone/Acetaminophen [[place] 1 tab PO Q6HR PRN #10 tab 04/09/20 5-325] Allergies Allergy/AdvReac Type Severity Reaction Status Date / Time No Known Allergies Allergy Verified 09/06/20 19:56 Review of Systems ROS Other: All systems not noted in ROS Statement are negative. <Mei العراقي - Last Filed: 09/06/20 21:58> ROS Other: All systems not noted in ROS Statement are negative. <Ines Li - Last Filed: 09/06/20 23:00> ROS Statement: Those systems with pertinent positive or pertinent negative responses have been documented in the HPI. Past Medical History Past Medical History: GERD/Reflux Additional Past Medical History / Comment(s): ER visit 03-23-20 for abd. pain, hiatal hernia, hx. migraines History of Any Multi-Drug Resistant Organisms: None Reported Past Surgical History: Cholecystectomy Additional Past Surgical History / Comment(s): SARAH FUNDOPLASTY ,Tumor removal from neck as a child, colonoscopy, EGD Past Anesthesia/Blood Transfusion Reactions: No Reported Reaction Past Psychological History: No Psychological Hx Reported Smoking Status: Never smoker Past Alcohol Use History: Rare Past Drug Use History: None Reported - Past Family History Mother Family Medical History: No Reported History <Mei العراقي - Last Filed: 09/06/20 21:58> General Exam Limitations: no limitations <Mei العراقي - Last Filed: 09/06/20 21:58> - General Exam Comments Initial Comments: General: The patient is awake and alert, in no distress Eye: +3 mm pupils are equal, round and reactive to light, extra-ocular movements are intact. No nystagmus. There is normal conjunctiva bilaterally. No signs of icterus. Ears, nose, mouth and throat: There are moist mucous membranes and no oral lesions. Neck: The neck is supple, there is no tenderness or JVD. mild protective posturing of neck, but can move side to side. (-) Brudzinski negative Kernig Cardiovascular: There is a regular rate and rhythm. No murmur, rub or gallop is appreciated. Respiratory: Lungs are clear to auscultation, respirations are non-labored, breath sounds are equal. No wheezes, stridor, rales, or rhonchi. Gastrointestinal: Soft, non-distended, non-tender abdomen without masses or organomegaly noted. There is no rebound or guarding present. Musculoskeletal: Normal ROM, no tenderness. Strength 5/5. Sensation intact. Radial and DP pulses equal bilaterally 2+. Neurological: A&O x 3. CN II-XII intact There are no obvious motor or sensory deficits. Coordination appears grossly intact. Speech is normal. Skin: Skin is warm and dry and no rashes or lesions are noted. Psychiatric: Cooperative, appropriate mood & affect, normal judgment. (Mei العراقي) Course Vital Signs 09/06/20 09/06/20 19:52 21:57 Temperature 98.1 F 98.3 F Pulse Rate 94 88 Respiratory 18 16 Rate Blood Pressure 140/87 133/91 O2 Sat by Pulse 96 98 Oximetry Medical Decision Making - Lab Data Result diagrams: 09/06/20 20:25 09/06/20 20:25 <Mei العراقي - Last Filed: 09/06/20 21:58> - Lab Data Result diagrams: 09/06/20 20:25 09/06/20 20:25 <GuillermoInes Cr - Last Filed: 09/06/20 23:00> - Medical Decision Making Labs unremarkable. Recommended lumbar puncture. Pt refused. pt educated on risk of meningitis/SAH or other causes of discomfort that we cannot r/o without this test. he states he would like to leave, bc he has to work in the morning. pt educated on risks of leaving without completion of care, including , disability by my attending Dr li who evaluated patient. pt left AMA appearing well. (Mei العراقي) I personally saw and evaluated this patient, patient reported tightness when bending his head forward or back no restrictions in turning the head left or right. Head CT was negative. Patient was afebrile vital signs were within normal limits as were labs. I discussed the pros and cons of lumbar puncture and did recommend a lumbar puncture for evaluation of possible viral meningitis considering the patient's persistent symptoms. 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 Despite this finding I did recommend LP. Initially patient consented and then became concerned about being here to leave the hospital wanting to make it worse in the morning. Patient then decided he did not want to have the LP. Patient is aware that he may have meningitis but would prefer to leave at this time. Patient states if he gets any worse or develops any new or concerning symptoms or return. I did advise the patient that even viral meningitis can develop into encephalitis which can be fatal. Patient expressed understanding of this but is insistent on leaving. When patient expressed to me his intention to leave emphatically nodded his head yes that he understood the risks and benefits. Patient's range of motion seemed much better at this time The patient has decided to leave against medical advice because he wants to go to work tomorrow The patient has adequate capacity to make medical decisions. The patient refuses hospital admission and wants to be discharged. The risks have been explained to the patient, including development of encephalitis, worsening illness, chronic pain, permanent disability and . The benefits of workup/admission have also been explained, including the availability of testing, and proximity of nurses, physicians, monitoring, diagnostic testing, treatment The patient was able to understand and state the risks and benefits of hospital admission. This was witnessed by MILA Hurley and me. The patient the opportunity to ask questions about their medical condition. The patient was treated to the extent that they would allow and knows that they may return for care at any time. (Ines Li) - Lab Data Lab Results 09/06/20 09/06/20 09/06/20 Range/Units 20:25 20:25 20:25 WBC 8.2 (3.8-10.6) k/uL RBC 5.28 (4.30-5.90) m/uL Hgb 15.8 (13.0-17.5) gm/dL Hct 44.5 (39.0-53.0) % MCV 84.4 (80.0-100.0) fL MCH 30.0 (25.0-35.0) pg MCHC 35.6 (31.0-37.0) g/dL RDW 12.3 (11.5-15.5) % Plt Count 297 (150-450) k/uL MPV 7.8 Neutrophils % 66 % Lymphocytes % 25 % Monocytes % 5 % Eosinophils % 2 % Basophils % 1 % Neutrophils # 5.4 (1.3-7.7) k/uL Lymphocytes # 2.0 (1.0-4.8) k/uL Monocytes # 0.4 (0-1.0) k/uL Eosinophils # 0.2 (0-0.7) k/uL Basophils # 0.1 (0-0.2) k/uL Sodium 142 (137-145) mmol/L Potassium 4.4 (3.5-5.1) mmol/L Chloride 107 (98-107) mmol/L Carbon Dioxide 23 (22-30) mmol/L Anion Gap 12 mmol/L BUN 13 (9-20) mg/dL Creatinine 0.95 (0.66-1.25) mg/dL Est GFR (CKD-EPI)AfAm >90 (>60 ml/min/1.73 sqM) Est GFR (CKD-EPI)NonAf >90 (>60 ml/min/1.73 sqM) Glucose 112 H (74-99) mg/dL Plasma Lactic Acid Jaison 1.4 (0.7-2.0) mmol/L Calcium 9.6 (8.4-10.2) mg/dL Total Bilirubin 0.4 (0.2-1.3) mg/dL AST 33 (17-59) U/L ALT 42 (4-49) U/L Alkaline Phosphatase 93 (38-126) U/L Total Protein 6.9 (6.3-8.2) g/dL Albumin 4.4 (3.5-5.0) g/dL Disposition Is patient prescribed a controlled substance at d/c from ED?: No Time of Disposition: 21:59 <Mei العراقي - Last Filed: 09/06/20 21:58> <Ines Li P - Last Filed: 09/06/20 23:00> Clinical Impression: Vomiting, Neck pain, Side pain Disposition: Left Against Medical Advice Condition: Undetermined Referrals: Pelon Yang MD [Primary Care Provider] - 1-2 days
[2020-09-06 20:33] LABS: Basophils # (A) 0.1 k/uL (0-0.2); Basophils % (A) 1 %; Eosinophils # (A) 0.2 k/uL (0-0.7); Eosinophils % (A) 2 %; HCT 44.5 % (39.0-53.0); HGB 15.8 gm/dL (13.0-17.5); Lymphocytes % (A) 25 %; MCHC 35.6 g/dL (31.0-37.0); MCV 84.4 fL (80.0-100.0); Mean Platelet Volume 7.8; Monocytes # (A) 0.4 k/uL (0-1.0); Monocytes % (A) 5 %; Neutrophils # (A) 5.4 k/uL (1.3-7.7); Neutrophils % (A) 66 %; Platelet Count 297 k/uL (150-450); RBC 5.28 m/uL (4.30-5.90); RDW 12.3 % (11.5-15.5); WBC 8.2 k/uL (3.8-10.6)
[2020-09-06 20:42] LABS: ALT 42 U/L (4-49); African American GFR (CKD) >90 (>60 ml/min/1.73 sqM); Albumin 4.4 g/dL (3.5-5.0); Anion Gap 12 mmol/L; Blood Urea Nitrogen 13 mg/dL (9-20); Calcium 9.6 mg/dL (8.4-10.2); Carbon Dioxide 23 mmol/L (22-30); Chloride 107 mmol/L (98-107); Glucose 112 mg/dL (74-99); Non-African American GFR(CKD) >90 (>60 ml/min/1.73 sqM); Sodium 142 mmol/L (137-145); Total Bilirubin 0.4 mg/dL (0.2-1.3); Total Protein 6.9 g/dL (6.3-8.2)
--- NOTE | 2020-09-06 20:55 | CT ---
EXAMINATION TYPE: CT brain wo con DATE OF EXAM: 09/06/2020 COMPARISON: None HISTORY: headache, nausea, dizziness CT DLP: 1099.4 mGycm Automated exposure control for dose reduction was used. Ventricles and sulci appear normal. There is no mass effect nor midline shift. There is no sign of in tracranial hemorrhage. The calvarium is intact. There is no evidence of cerebral edema. IMPRESSION: Negative CT scan of the brain.
[2020-09-06] MEDS ORDERED: diazePAM 2 MG TAB PO STA (21:07)
[2020-09-06 21:12] LABS: AST 33 U/L (17-59); Potassium 4.4 mmol/L (3.5-5.1)
[2020-09-06 21:13] LABS: Alkaline Phosphatase 93 U/L (38-126)
[2020-09-06] MEDS ORDERED: KETOROLAC 15 MG/ML 1 ML VIAL IVP STA (21:16)
[2020-09-06 21:58] VITALS: BP 133/91; PULSE 88; RESP 16; TEMP 98.3
== END 2020-09-06 21:59 | disposition left against medical advice (07) ==
LOC: EC 19:52
DX: R11.2 Nausea with vomiting, unspecified (principal); M54.2 Cervicalgia; K21.9 Gastro-esophageal reflux disease without esophagitis; Z53.29 Procedure and treatment not carried out because of patient's decision for other reasons
CPT/HCPCS: 36415; 80053; 83605; 85025; 87040; 70450; 99284; 96374; J1885

== ENCOUNTER → 2020-10-30 | Outpatient (CLI) | payer OTHER ==
[2020-10-30 12:21] LABS: Appearance,Urine Clear (Clear); Bilirubin,Urine Negative (Negative); Blood,Urine Negative (Negative); Color,Urine Colorless; Glucose,Urine (UA) Negative (Negative); Ketones,Urine Negative (Negative); Leukocyte Esterase,Urine Negative (Negative); Nitrite,Urine Negative (Negative); PH, Urine 5.5 (5.0-8.0); Protein,Urine Negative (Negative); Specific Gravity,Urine 1.004 (1.001-1.035); Urobilinogen,Urine <2.0 mg/dL (<2.0)
[2020-10-30 16:58] LABS: Basophils # (A) 0.04 X 10*3/uL (0.00-0.10); Basophils % (A) 0.6 %; Eosinophils # (A) 0.14 X 10*3/uL (0.04-0.35); Eosinophils % (A) 2.1 %; HCT 45.8 % (39.6-50.0); HGB 15.5 g/dL (13.0-17.0); Lymphocytes # (A) 1.47 X 10*3/uL (0.90-5.00); Lymphocytes % (A) 21.6 %; MCH 29.5 pg (27.0-32.0); MCHC 33.8 g/dL (32.0-37.0); MCV 87.1 fL (80.0-97.0); Mean Platelet Volume 10.9 fL (9.5-12.2); Monocytes # (A) 0.43 X 10*3/uL (0.20-1.00); Monocytes % (A) 6.3 %; Neutrophils # (A) 4.68 X 10*3/uL (1.80-7.70); Neutrophils % (A) 68.5 %; Platelet Count 304 X 10*3/uL (140-440); RBC 5.26 X 10*6/uL (4.40-5.60); RDW 12.3 % (11.5-14.5); WBC 6.82 X 10*3/uL (4.50-10.00)
[2020-10-30 18:21] LABS: Urine Creatinine 24.2 mg/dL
[2020-10-30 19:01] LABS: African American GFR (CKD) 129.6 (60.0-200.0); Albumin 4.5 g/dL (3.80-4.90); Albumin/Globulin Ratio 2.05 (1.60-3.17); Anion Gap 8.5 mmol/L (4.00-12.00); BUN/Creat Ratio 12.22 Ratio (12.00-20.00); Bilirubin, Conjugated 0.2 mg/dL (0.20-0.40); Bilirubin,Unconjugated 0.3 mg/dL; Calcium 9.7 mg/dL (8.7-10.3); Carbon Dioxide 24.5 mmol/L (21.6-31.8); Chol/HDL Ratio 4.32; Globulin 2.2 g/dL (1.6-3.3); LDL Cholesterol,Calculated 100.4 mg/dL (0.0-131.0); Non-African American GFR(CKD) 111.8 (60.0-200.0); Phosphorus 3.2 mg/dL (2.4-5.1); Potassium 4.4 mmol/L (3.5-5.5); Total Bilirubin 0.5 mg/dL (0.2-1.2); Total Protein 6.7 g/dL (6.2-8.2); Uric Acid 7.7 mg/dL (3.7-8.7); VLDL Calculation 25.6 mg/dL (5.00-40.00)
[2020-10-30 19:46] LABS: HIV 2 AB Non-Reactive (Non-Reactive); HIV AB P24 Non-Reactive (Non-Reactive); HIV P24 AG Non-Reactive (Non-Reactive)
[2020-10-30 20:35] LABS: Hemoglobin A1C 4.8 % (4.0-6.0)
[2020-10-30 20:36] LABS: Hepatitis B Surface AB- Quant >1000.0 mIU/mL; Hepatitis B Surface Antibody Reactive (Non-Reactive); Hepatitis B Surface Antigen Non-Reactive (Non-Reactive); Hepatitis C IgG Antibody Non-Reactive (Non-Reactive)
[2020-11-02 07:09] LABS: EBV - VCA IgM <10.0 U/mL (<36.0)
== END | disposition home or self-care (01) ==
LOC: LABWHC1 08:43
PROVIDERS: ATTEND Internal Medicine Nephrology
DX: Z00.5 Encounter for examination of potential donor of organ and tissue (principal)
CPT/HCPCS: 36415; 80053; 80061; 81003; 82043; 82248; 82570; 82610; 83036; 84100; 84550; 85025; 85730; 86644; 86645; 86664; 86665; 86704; 86706; 86780; 86803; 87086; 87340; 87390

== ENCOUNTER → 2020-11-16 | Outpatient (CLI) | payer OTHER ==
[2020-11-17 02:04] LABS: INR 0.96 (0.90-1.11); Partial Thromboplastin Time 25.6 sec (23.5-31.0); Prothrombin Time 10.5 sec (9.9-11.9)
== END | disposition home or self-care (01) ==
LOC: LABWHC1 14:18
PROVIDERS: ATTEND Internal Medicine Nephrology
DX: Z00.5 Encounter for examination of potential donor of organ and tissue (principal)
CPT/HCPCS: 36415; 85610; 85730

== ENCOUNTER 2020-12-17 12:54 | Emergency (ER) | payer MEDICAID, OTHER ==
[2020-12-17 13:12] VITALS: BP 142/76; PULSE 112; RESP 19; TEMP 100.2
--- NOTE | 2020-12-17 14:15 | XR ---
Left foot HISTORY: Trauma and pain 3 views of the left foot Bone mineralization, joint spaces and alignment are maintained. IMPRESSION: No fracture or dislocation.
--- NOTE | 2020-12-17 14:54 | ED ---
Lower Extremity Injury HPI - General Chief Complaint: Extremity Injury, Lower Stated Complaint: foot injury Time Seen by Provider: 12/17/20 13:15 Source: patient Mode of arrival: wheelchair Limitations: no limitations - History of Present Illness Initial Comments: 35-year-old male presents to the emergency department with a chief complaint of left foot pain. States this occurred about 20 minutes prior to arrival. Patient reports it was quite hot outside and believes that twice temperatures elevated. He denies any respiratory or urinary infectious symptoms. Denies any pain anywhere else aside in the left foot which only occurred about 20 minutes ago. Patient reports the golf cart ran up on his left foot. Most of the pain is located in the midfoot with no ecchymosis or erythema. No injuries to the ankle. He has full range of motion of ankle. Pain worse with weightbearing and alleviated at rest. - Related Data Home Medications Medication Instructions Recorded Confirmed Omeprazole [PriLOSEC] 20 mg PO AC-BRKFST 03/23/20 04/08/20 Previous Rx's Medication Instructions Recorded Docusate [Colace] 100 mg PO BID #30 capsule 04/09/20 Hydrocodone/Acetaminophen [Secretary 1 tab PO Q6HR PRN #10 tab 04/09/20 5-325] Allergies Allergy/AdvReac Type Severity Reaction Status Date / Time No Known Allergies Allergy Verified 12/17/20 13:13 Review of Systems ROS Statement: Those systems with pertinent positive or pertinent negative responses have been documented in the HPI. ROS Other: All systems not noted in ROS Statement are negative. Past Medical History Past Medical History: GERD/Reflux Additional Past Medical History / Comment(s): ER visit 03-23-20 for abd. pain, hiatal hernia, hx. migraines History of Any Multi-Drug Resistant Organisms: None Reported Past Surgical History: Cholecystectomy Additional Past Surgical History / Comment(s): SARAH FUNDOPLASTY ,Tumor removal from neck as a child, colonoscopy, EGD Past Anesthesia/Blood Transfusion Reactions: No Reported Reaction Past Psychological History: No Psychological Hx Reported Smoking Status: Never smoker Past Alcohol Use History: Rare Past Drug Use History: None Reported - Past Family History Mother Family Medical History: No Reported History General Exam Limitations: no limitations General appearance: alert, in no apparent distress Head exam: Present: atraumatic, normocephalic, normal inspection Eye exam: Present: normal appearance Pupils: Present: normal accommodation ENT exam: Present: normal exam, normal oropharynx, mucous membranes moist Neck exam: Present: normal inspection, full ROM. Absent: tenderness Respiratory exam: Present: normal lung sounds bilaterally. Absent: respiratory distress Cardiovascular Exam: Present: regular rate, normal rhythm, normal heart sounds. Absent: systolic murmur Extremities exam: Present: normal inspection, full ROM, tenderness (Midfoot tenderness. No fifth metatarsal tenderness. No malleolar tenderness.), normal capillary refill, other (Palpable DP and PT bilaterally). Absent: pedal edema, joint swelling, calf tenderness Back exam: Present: normal inspection, full ROM. Absent: tenderness Neurological exam: Present: alert, oriented X3 Psychiatric exam: Present: normal affect, normal mood Skin exam: Present: warm, dry, intact, normal color Course Vital Signs 12/17/20 13:10 Temperature 100.2 F H Pulse Rate 112 H Respiratory 19 Rate Blood Pressure 142/76 O2 Sat by Pulse 98 Oximetry Medical Decision Making - Medical Decision Making 35-year-old male presents emergency Department with a chief complaint of left foot injury. On physical examination, he is neurovascularly intact. Some midfoot tenderness but no ankle tenderness. X-ray of the foot shows no acute findings. Patient did come with a borderline fever which she states is secondary to being out of the sun all day and working. She denies any other symptoms aside from the foot pain. He does not want any further workup. Patient was advised to rest, ice, compression and elevation. Return parameters were thoroughly discussed the patient is understanding and agreeable. Disposition Clinical Impression: Injury of left foot Disposition: HOME SELF-CARE Condition: Stable Instructions (If sedation given, give patient instructions): Ankle Sprain (ED) Additional Instructions: Please return to the Emergency Department if symptoms worsen or any other concerns. Is patient prescribed a controlled substance at d/c from ED?: No Referrals: Pelon Yang MD [Primary Care Provider] - 1-2 days Time of Disposition: 14:54
== END 2020-12-17 15:05 | disposition home or self-care (01) ==
LOC: EC 12:54
DX: S99.922A Unspecified injury of left foot, initial encounter (principal); K21.9 Gastro-esophageal reflux disease without esophagitis; Z79.899 Other long term (current) drug therapy; W23.0XXA Caught, crushed, jammed, or pinched between moving objects, initial encounter
CPT/HCPCS: 99283

== ENCOUNTER → 2021-06-02 | Outpatient (CLI) | payer OTHER ==
--- NOTE | 2021-06-03 05:40 | CT ---
EXAMINATION TYPE: CT abdomen pelvis w con DATE OF EXAM: 06/02/2021 COMPARISON: CT abdomen and pelvis March 23, 2020 HISTORY: RUQ pain CT DLP: 540.3 mGycm, Automated Exposure Control for Dose Reduction was Utilized. CONTRAST: CT scan of the abdomen and pelvis is performed with oral and with IV Contrast, patient injected with 100 mL of Isovue 300. FINDINGS: LUNG BASES: No significant abnormality is appreciated. LIVER/GB: Cholecystectomy clips are redemonstrated. The liver remains low dense relative to spleen. P rominent right hepatic lobe redemonstrated. No new biliary dilatation. PANCREAS: No significant abnormality is seen. SPLEEN: Measures upper limits of normal at 13.0 cm axial image 20. ADRENALS: No significant abnormality is seen. KIDNEYS: No significant abnormality is seen. BOWEL: Oral contrast does not reach level of the terminal ileum making evaluation of distal bowel sli ghtly suboptimal. Normal-appearing appendix is appreciated. No suspicious small or large bowel dilata tion. Surgical changes from the central complication procedure level of diaphragmatic hiatus are rede monstrated. Stable small recurrent hiatal hernia above the diaphragm noted. PROSTATE/SEMINAL VESICLES: Prostate gland is stable, upper limits of normal in size. LYMPH NODES: No greater than 1cm abdominal or pelvic lymph nodes are appreciated. OSSEOUS STRUCTURES: No significant abnormality is seen. OTHER: No significant additional abnormality is seen. IMPRESSION: No significant new or acute finding is seen to account for patient's clinical symptoms o f right upper quadrant pain.
== END | disposition home or self-care (01) ==
LOC: RADCTMAIN 17:32
PROVIDERS: ATTEND Surgery
DX: R10.11 Right upper quadrant pain (principal)
CPT/HCPCS: 74177; Q9967

== ENCOUNTER 2021-06-14 10:54 | Day surgery (SDC) | payer OTHER ==
[2021-06-09 11:46] VITALS: BMI 22.4
[~2021-06-14 10:54] MED LIST changes: -ACETAMINOPHEN TAB 500 MG TAB PO PRN; -HEPARIN SODIUM,PORCINE 5,000 UNIT/ML 1 ML VIAL SQ PRN; +LACTATED RINGERS 1,000 ML IV SCH; +LIDOCAINE 1% (10MG/ML) FOR IV START INTRADERMA PRN
[2021-06-14 12:34] VITALS: RESP 16; TEMP 97.9
[2021-06-14] MEDS ORDERED: LIDOCAINE 1% INJ 10MG/ML (20 ML MDV) ONE (13:40)
[2021-06-14] MEDS ORDERED: PROPOFOL 10 MG/ML 20 ML VIAL IV ONE (13:40)
--- NOTE | 2021-06-14 13:44 | P.GSHP ---
History of Present Illness H&P Date: 06/14/21 Chief Complaint: Epigastric pain, gastritis Is a 36-year-old male who's had complaints of epigastric pain. He presents today for EGD to evaluation for gastritis. Past Medical History Past Medical History: GERD/Reflux Additional Past Medical History / Comment(s): , hx. migraines, ABD PAIN History of Any Multi-Drug Resistant Organisms: None Reported Past Surgical History: Cholecystectomy Additional Past Surgical History / Comment(s): SARAH FUNDOPLASTY ,Tumor removal from neck as a child, colonoscopy, EGD Past Anesthesia/Blood Transfusion Reactions: No Reported Reaction Smoking Status: Never smoker - Past Family History Mother Family Medical History: No Reported History Medications and Allergies Home Medications Medication Instructions Recorded Confirmed Type No Known Home Medications 06/09/21 06/14/21 History Allergies Allergy/AdvReac Type Severity Reaction Status Date / Time No Known Allergies Allergy Verified 06/14/21 12:26 Surgical - Exam Vital Signs Temp Pulse Resp BP Pulse Ox 97.9 F 89 16 149/87 99 06/14/21 12:25 06/14/21 12:25 06/14/21 12:25 06/14/21 12:25 06/14/21 12:25 - General well developed, well nourished, no distress - Eyes PERRL - ENT normal pinna - Neck no masses - Respiratory normal expansion - Cardiovascular Rhythm: regular - Abdomen Abdomen: soft, non tender Assessment and Plan Assessment: Epigastric pain, gastritis. We'll perform EGD.
--- NOTE | 2021-06-14 13:52 | P.OP ---
Date of Procedure: 06/14/21 Preoperative Diagnosis: Epigastric pain Gastritis Postoperative Diagnosis: Mild antral gastritis Procedure(s) Performed: EGD Anesthesia: MAC Surgeon: Gab Navas Pathology: other (Antrum) Condition: stable Disposition: PACU Description of Procedure: The patient's placed on the endoscopy table in the lateral position. He received IV sedation. The gastroscope placed oropharynx passed in the esophagus and stomach. Scope was then placed through the pylorus. The first and second portion of the duodenum appeared normal. Scope was then brought back the antrum this is minimally inflamed. A biopsies performed. The remainder the stomach appeared normal. There was no significant hiatal hernia. The GE junction was at 40 cm. The distal esophagus appeared normal. The proximal esophagus appeared normal. The scope was withdrawn for patient.
[2021-06-14 14:27] VITALS: BP 123/81; PULSE 80
== END 2021-06-14 14:35 | disposition home or self-care (01) ==
LOC: ORWHC2ENDO 10:54
PROVIDERS: ATTEND Surgery
DX: K29.50 Unspecified chronic gastritis without bleeding (principal); K21.9 Gastro-esophageal reflux disease without esophagitis; G43.909 Migraine, unspecified, not intractable, without status migrainosus; Z90.49 Acquired absence of other specified parts of digestive tract; Z98.890 Other specified postprocedural states
CPT/HCPCS: 88305; 43239; J2001; J2704

== ENCOUNTER 2021-07-07 08:20 | Emergency (ER) | payer OTHER ==
[2021-07-07 08:25] VITALS: RESP 16
[2021-07-07 09:45] LABS: Appearance,Urine Clear (Clear); Bilirubin,Urine Negative (Negative); Blood,Urine Negative (Negative); Color,Urine Yellow; Glucose,Urine (UA) Negative (Negative); Ketones,Urine Negative (Negative); Leukocyte Esterase,Urine Negative (Negative); Nitrite,Urine Negative (Negative); Protein,Urine Negative (Negative); Specific Gravity,Urine 1.018 (1.001-1.035); Urobilinogen,Urine <2.0 mg/dL (<2.0)
[2021-07-07 10:00] LABS: Basophils % (A) 0 %; Eosinophils # (A) 0.1 k/uL (0-0.7); Eosinophils % (A) 1 %; HCT 48.5 % (39.0-53.0); HGB 16.4 gm/dL (13.0-17.5); Lymphocytes # (A) 1.5 k/uL (1.0-4.8); Lymphocytes % (A) 19 %; MCH 29.6 pg (25.0-35.0); MCHC 33.8 g/dL (31.0-37.0); MCV 87.5 fL (80.0-100.0); Mean Platelet Volume 8.4; Monocytes # (A) 0.4 k/uL (0-1.0); Monocytes % (A) 5 %; Neutrophils # (A) 5.7 k/uL (1.3-7.7); Neutrophils % (A) 74 %; Platelet Count 284 k/uL (150-450); RBC 5.54 m/uL (4.30-5.90); RDW 12.9 % (11.5-15.5); WBC 7.8 k/uL (3.8-10.6)
[2021-07-07 10:05] LABS: ALT 33 U/L (4-49); AST 26 U/L (17-59); African American GFR (CKD) >90 (>60 ml/min/1.73 sqM); Albumin 4.7 g/dL (3.5-5.0); Alkaline Phosphatase 97 U/L (38-126); Amylase 62 U/L (30-110); Anion Gap 8 mmol/L; Blood Urea Nitrogen 15 mg/dL (9-20); Calcium 9.7 mg/dL (8.4-10.2); Carbon Dioxide 24 mmol/L (22-30); Chloride 108 mmol/L (98-107); Glucose 101 mg/dL (74-99); Lipase 102 U/L (23-300); Non-African American GFR(CKD) >90 (>60 ml/min/1.73 sqM); Potassium 4.7 mmol/L (3.5-5.1); Sodium 140 mmol/L (137-145); Total Bilirubin 0.8 mg/dL (0.2-1.3); Total Protein 7.9 g/dL (6.3-8.2)
[2021-07-07] MEDS ORDERED: SODIUM CHLORIDE 0.9% 1,000 ML IV STA (10:18)
[2021-07-07] MEDS ORDERED: ONDANSETRON 4 MG/2 ML VIAL IVP STA (10:18)
[2021-07-07] MEDS ORDERED: MORPHINE SULFATE 2 MG/ML SYRINGE IVP STA (10:18)
--- NOTE | 2021-07-07 10:23 | ED ---
General Adult HPI - General Chief complaint: Abdominal Pain Stated complaint: Abd pain Time Seen by Provider: 07/07/21 10:13 Source: patient Mode of arrival: ambulatory Limitations: no limitations - History of Present Illness Initial comments: This 36-year-old male with a past medical history of cholecystectomy and Michele fundoplication presents to the emergency department with right lower quadrant pain that began last night at 8p.m. Patient states he was watching TV when he began to get an aching pain around his belly button that has slowly moved onto his right lower quadrant. He states the pain did start as aching and is now sharp in nature. Patient states he has never had anything like this before, he denies taking any medication to help relieve his pain. Patient stated his pain is 7/10. He states he did experience 2 episodes of diarrhea last night denies any hematochezia. Patient states he does still have an appetite and has been e ating and drinking as usual, however he states he has been experiencing episodic nausea over the last day. Patient denies any fever, vomiting, chest pain, shortness of breath, headache, lightheadedness, dizziness, hemoptysis, change in bowel or bladder, change in vision. - Related Data Previous Rx's Medication Instructions Recorded Ondansetron Odt [Zofran ODT] 4 mg PO Q8HR PRN #10 tab 07/07/21 Allergies Allergy/AdvReac Type Severity Reaction Status Date / Time No Known Allergies Allergy Verified 07/07/21 10:26 Review of Systems ROS Statement: Those systems with pertinent positive or pertinent negative responses have been documented in the HPI. ROS Other: All systems not noted in ROS Statement are negative. Past Medical History Past Medical History: GERD/Reflux Additional Past Medical History / Comment(s): , hx. migraines, ABD PAIN History of Any Multi-Drug Resistant Organisms: None Reported Past Surgical History: Cholecystectomy Additional Past Surgical History / Comment(s): MICHELE FUNDOPLASTY ,Tumor removal from neck as a child, colonoscopy, EGD Past Anesthesia/Blood Transfusion Reactions: No Reported Reaction Past Psychological History: No Psychological Hx Reported Smoking Status: Never smoker Past Alcohol Use History: None Reported Past Drug Use History: None Reported - Past Family History Mother Family Medical History: No Reported History General Exam Limitations: no limitations General appearance: alert, in no apparent distress Head exam: Present: atraumatic, normocephalic, normal inspection Eye exam: Present: normal appearance, PERRL, EOMI. Absent: scleral icterus, con junctival injection, periorbital swelling ENT exam: Present: normal exam, mucous membranes moist Neck exam: Present: normal inspection, full ROM. Absent: tenderness, meningismus, lymphadenopathy Respiratory exam: Present: normal lung sounds bilaterally. Absent: respiratory distress, wheezes, rales, rhonchi, stridor Cardiovascular Exam: Present: regular rate, normal rhythm, normal heart sounds. Absent: systolic murmur, diastolic murmur, rubs, gallop, clicks GI/Abdominal exam: Present: soft, tenderness (Right lower quadrant tenderness to palpation ), normal bowel sounds. Absent: distended, guarding, rebound, rigid Extremities exam: Present: full ROM, normal capillary refill. Absent: pedal edema, joint swelling Back exam: Present: normal inspection, full ROM. Absent: CVA tenderness (R), CVA tenderness (L), paraspinal tenderness, vertebral tenderness Neurological exam: Present: alert, oriented X3, CN II-XII intact, normal gait Psychiatric exam: Present: normal affect, normal mood Skin exam: Present: warm, dry, intact, normal color. Absent: rash Course Vital Signs 07/07/21 08:22 Temperature 97.9 F Pulse Rate 107 H Respiratory 16 Rate Blood Pressure 143/93 O2 Sat by Pulse 99 Oximetry - Reevaluation(s) Reevaluation #1: 07/07/21 11:12 After receiving morphine, Zofran and fluids, patient states he does feel much better at this time. He states he is no longer nauseous and his pain has significantly decreased. 07/07/21 12:51 On reevaluation, waiting for the lactic acid to result, patient states he is ready to be discharged. Patient states he is not nauseous and no longer has any abdominal pain at this time. He stated he would return to the emergency department if any of his symptoms returned or any new or worsening symptoms present. Medical Decision Making - Medical Decision Making This 36-year-old male presents emergency department with right lower quadrant pain that began at 8:00 PM last night. Labs unremarkable. Urine unremarkable. CT abdomen and pelvis with contrast: Appendix is normal. Splenomegaly. After receiving fluids, morphine and Zofran, patient states he feels much better. Patient denies any nausea at this time. He states his pain and his abdomen has significantly decreased and is currently 2/10. 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 I did instruct patient to return to the emergency department with any new, worsening, or concerning symptoms. Patient verbally agreed to plan. Patient sent home in stable condition. Patient given prescription for Zofran. Case discussed with my attending, Dr. Dawson. - Lab Data Result diagrams: 07/07/21 09:34 07/07/21 09:34 Lab Results 07/07/21 07/07/21 07/07/21 Range/Units 09:34 09:34 09:34 WBC 7.8 (3.8-10.6) k/uL RBC 5.54 (4.30-5.90) m/uL Hgb 16.4 (13.0-17.5) gm/dL Hct 48.5 (39.0-53.0) % MCV 87.5 (80.0-100.0) fL MCH 29.6 (25.0-35.0) pg MCHC 33.8 (31.0-37.0) g/dL RDW 12.9 (11.5-15.5) % Plt Count 284 (150-450) k/uL MPV 8.4 Neutrophils % 74 % Lymphocytes % 19 % Monocytes % 5 % Eosinophils % 1 % Basophils % 0 % Neutrophils # 5.7 (1.3-7.7) k/uL Lymphocytes # 1.5 (1.0-4.8) k/uL Monocytes # 0.4 (0-1.0) k/uL Eosinophils # 0.1 (0-0.7) k/uL Basophils # 0.0 (0-0.2) k/uL Sodium 140 (137-145) mmol/L Potassium 4.7 (3.5-5.1) mmol/L Chloride 108 H (98-107) mmol/L Carbon Dioxide 24 (22-30) mmol/L Anion Gap 8 mmol/L BUN 15 (9-20) mg/dL Creatinine 1.03 (0.66-1.25) mg/dL Est GFR (CKD-EPI)AfAm >90 (>60 ml/min/1.73 sqM) Est GFR (CKD-EPI)NonAf >90 (>60 ml/min/1.73 sqM) Glucose 101 H (74-99) mg/dL Plasma Lactic Acid Jaison 0.8 (0.7-2.0) mmol/L Calcium 9.7 (8.4-10.2) mg/dL Total Bilirubin 0.8 (0.2-1.3) mg/dL AST 26 (17-59) U/L ALT 33 (4-49) U/L Alkaline Phosphatase 97 (38-126) U/L Total Protein 7.9 (6.3-8.2) g/dL Albumin 4.7 (3.5-5.0) g/dL Amylase 62 (30-110) U/L Lipase 102 (23-300) U/L Urine Color Urine Appearance (Clear) Urine pH (5.0-8.0) Ur Specific [place] (1.001-1.035) Urine Protein (Negative) Urine Glucose (UA) (Negative) Urine Ketones (Negative) Urine Blood (Negative) Urine Nitrite (Negative) Urine Bilirubin (Negative) Urine Urobilinogen (<2.0) mg/dL Ur Leukocyte Esterase (Negative) 07/07/21 Range/Units 09:36 WBC (3.8-10.6) k/uL RBC (4.30-5.90) m/uL Hgb (13.0-17.5) gm/dL Hct (39.0-53.0) % MCV (80.0-100.0) fL MCH (25.0-35.0) pg MCHC (31.0-37.0) g/dL RDW (11.5-15.5) % Plt Count (150-450) k/uL MPV Neutrophils % % Lymphocytes % % Monocytes % % Eosinophils % % Basophils % % Neutrophils # (1.3-7.7) k/uL Lymphocytes # (1.0-4.8) k/uL Monocytes # (0-1.0) k/uL Eosinophils # (0-0.7) k/uL Basophils # (0-0.2) k/uL Sodium (137-145) mmol/L Potassium (3.5-5.1) mmol/L Chloride (98-107) mmol/L Carbon Dioxide (22-30) mmol/L Anion Gap mmol/L BUN (9-20) mg/dL Creatinine (0.66-1.25) mg/dL Est GFR (CKD-EPI)AfAm (>60 ml/min/1.73 sqM) Est GFR (CKD-EPI)NonAf (>60 ml/min/1.73 sqM) Glucose (74-99) mg/dL Plasma Lactic Acid [place] (0.7-2.0) mmol/L Calcium (8.4-10.2) mg/dL Total Bilirubin (0.2-1.3) mg/dL AST (17-59) U/L ALT (4-49) U/L Alkaline Phosphatase (38-126) U/L Total Protein (6.3-8.2) g/dL Albumin (3.5-5.0) g/dL Amylase (30-110) U/L Lipase (23-300) U/L Urine Color Yellow Urine Appearance Clear (Clear) Urine pH 6.0 (5.0-8.0) Ur Specific [place] 1.018 (1.001-1.035) Urine Protein Negative (Negative) Urine Glucose (UA) Negative (Negative) Urine Ketones Negative (Negative) Urine Blood Negative (Negative) Urine Nitrite Negative (Negative) Urine Bilirubin Negative (Negative) Urine Urobilinogen <2.0 (<2.0) mg/dL Ur Leukocyte Esterase Negative (Negative) Disposition Clinical Impression: Abdominal pain Disposition: HOME SELF-CARE Condition: Stable Instructions (If sedation given, give patient instructions): Abdominal Pain (ED) Additional Instructions: Please return to the emergency department with any new, worsening, or concerning symptoms. Follow-up with your GI doctor at your appointment early next week. Follow-up with your primary care provider next 1-2 days. Take Zofran as directed. Prescriptions: Ondansetron Odt [Zofran ODT] 4 mg PO Q8HR PRN #10 tab PRN Reason: Nausea Is patient prescribed a controlled substance at d/c from ED?: No Referrals: Pelon Yang MD [Primary Care Provider] - 1-2 days
--- NOTE | 2021-07-07 11:07 | CT ---
EXAMINATION TYPE: CT abdomen pelvis w con DATE OF EXAM: 07/07/2021 COMPARISON: CT 06/02/2021 HISTORY: Right lower quadrant pain CT DLP: 755.9 mGycm Automated exposure control for dose reduction was used. TECHNIQUE: Helical acquisition of images from the lung bases through the pelvis have been completed. CONTRAST: Performed without Oral Contrast and with IV Contrast, patient injected with 100 mL of Isovue 300. FINDINGS: Postop changes are noted at the gastroesophageal junction LUNG BASES: No significant abnormality is appreciated. AORTA: No significant abnormality is appreciated. LIVER/GB: Patient is post cholecystectomy. Liver shows no mass. PANCREAS: No significant abnormality is seen. SPLEEN: Enlarged. ADRENALS: No significant abnormality is seen. KIDNEYS: Circumaortic left renal vein is noted.. REPRODUCTIVE ORGANS: Prostate is enlarged BOWEL: No significant abnormality is seen. Appendix is normal. FREE AIR: No Free Air visible. ASCITES: None visible. PELVIC ADENOPATHY: None visualized. RETROPERITONEAL ADENOPATHY: No Retroperitoneal Adenopathy visible. URINARY BLADDER: No significant abnormality is seen. OSSEOUS STRUCTURES: No significant abnormality is seen. IMPRESSION: SPLENOMEGALY, POSTOP CHANGES, additional findings above.
[2021-07-07 13:23] VITALS: BP 137/82; PULSE 85; TEMP 98.2
== END 2021-07-07 13:24 | disposition home or self-care (01) ==
LOC: EC 08:20
DX: R10.9 Unspecified abdominal pain (principal)
CPT/HCPCS: 36415; 80053; 82150; 83690; 85025; 81003; 74177; 83605; 99284; 96374; 96375; 96361; J2405; J2270; Q9967

== ENCOUNTER → 2021-09-08 | Outpatient (CLI) | payer OTHER ==
--- NOTE | 2021-09-08 17:25 | US ---
EXAMINATION TYPE: US abdomen complete DATE OF EXAM: 09/08/2021 COMPARISON: NONE CLINICAL HISTORY: R10.9 Abd pain. RUQ and epigastric pain since GB removal 3yrs ago, patient also deneen arabella worked up for MS EXAM MEASUREMENTS: Liver Length: 17.3 cm Gallbladder Wall: Surgically absent CBD: 0.8 cm Spleen: 14.2 cm Right Kidney: 9.9 x 4.8 x 4.9 cm Left Kidney: 11.3 x 4.2 x 6.1 cm Pancreas: wnl Liver: intercostal imaging due to bowel gas, wnl Gallbladder: Surgically absent Evidence for sonographic Valle's sign: no CBD: wnl Spleen: enlarged Right Kidney: wnl Left Kidney: wnl Upper IVC: wnl Abd Aorta: limited views appear wnl IMPRESSION: 1. Hepatomegaly.
== END | disposition home or self-care (01) ==
LOC: RADUSWWP 06:55
PROVIDERS: ATTEND Internal Medicine Gastroenterology
DX: R16.0 Hepatomegaly, not elsewhere classified (principal); R10.9 Unspecified abdominal pain
CPT/HCPCS: 76700

== ENCOUNTER 2021-09-28 08:50 | Day surgery (SDC) | payer OTHER ==
[2021-09-24 13:21] VITALS: BMI 23.1
[2021-09-28 09:56] VITALS: TEMP 98.8
[2021-09-28] MEDS ORDERED: LIDOCAINE 2% INJ 20 MG/ML (2 ML VIAL) ONE (10:56)
[2021-09-28] MEDS ORDERED: PROPOFOL 10 MG/ML 20 ML VIAL IV ONE (10:56)
--- NOTE | 2021-09-28 11:07 | P.PCN ---
Date of Procedure: 09/28/21 Procedure(s) Performed: BRIEF HISTORY: Patient is a 36-year-old pleasant white male scheduled for an elective colonoscopy as a part of evaluation of intermittent rectal bleeding for the last few months duration. PROCEDURE PERFORMED: Colonoscopy. PREOPERATIVE DIAGNOSIS: Intermittent rectal bleeding. IV sedation per Anesthesia. PROCEDURE: After informed consent was obtained, the patient, was brought into the endoscopy unit. IV sedation was administered by Anesthesia under continuous monitoring. Digital rectal examination was normal. Initially the Olympus CF-160 flexible video colonoscope was then inserted in the rectum, gradually advanced into the cecum without any difficulty. Careful examination was performed as the scope was gradually being withdrawn. Ileocecal valve and the appendiceal orifice were visualized and appeared normal. Prep was excellent. Mucosa of the cecum, ascending colon, transverse colon, descending colon, sigmoid colon, and rectum appeared normal. Retroflexion was performed in the rectum and no lesions were seen. The patient tolerated the procedure well. IMPRESSION: Normal-appearing colon from rectum to cecum with no colorectal neoplasia . RECOMMENDATIONS: Findings of this examination were discussed with the patient well as his family. He was advised to be a high-fiber diet and take fiber supplements a regular basis and avoid straining and constipation. Recommend repeat screening colonoscopy at age 47.
[2021-09-28 11:14] VITALS: RESP 16
[2021-09-28 11:34] VITALS: BP 134/73; PULSE 75
== END 2021-09-28 11:59 | disposition home or self-care (01) ==
LOC: ORWHC2ENDO 08:50
PROVIDERS: ATTEND Internal Medicine Gastroenterology
DX: K62.5 Hemorrhage of anus and rectum (principal); K21.9 Gastro-esophageal reflux disease without esophagitis; K58.9 Irritable bowel syndrome, unspecified; Z98.890 Other specified postprocedural states; Z79.899 Other long term (current) drug therapy
CPT/HCPCS: 45378; J2704; J2001

== ENCOUNTER 2021-10-26 07:23 | Emergency (ER) | payer OTHER ==
[2021-10-26 07:29] VITALS: RESP 18
[2021-10-26] MEDS ORDERED: ACET/COD 300 MG/30 MG STARTER PACK 6 TAB BTL PO STA (07:51)
--- NOTE | 2021-10-26 07:57 | ED ---
General Adult HPI - General Chief complaint: Back Pain/Injury Stated complaint: lower back pain, arm & leg tingling Time Seen by Provider: 10/26/21 07:36 Source: patient, RN notes reviewed Mode of arrival: ambulatory Limitations: no limitations - History of Present Illness Initial comments: 36-year-old male presents emergency Department with chief complaint of back issues. Patient has been currently worked up by Erendira Sosa. Patient states that he's had recent MRI and MRAs. Patient states is about plan for this he has not received any phone calls remaining abnormal. He states she's been having ongoing pain rating down his arms, legs. Patient states that he has not been replaced any medications. They're concerned he may have MS they have not done a lumbar puncture at this time. Patient had normal CT of his brain. Denies any focal weakness no chest pain no abdominal pain does not take anything for discomfort. - Related Data Home Medications Medication Instructions Recorded Confirmed Omeprazole Magnesium [PriLOSEC OTC] 20 mg PO DAILY 08/16/21 09/28/21 Multivitamins, Thera [Multivitamin 1 tab PO DAILY 09/24/21 09/28/21 (formulary)] Previous Rx's Medication Instructions Recorded predniSONE 50 mg PO DAILY #5 tab 10/26/21 Allergies Allergy/AdvReac Type Severity Reaction Status Date / Time No Known Allergies Allergy Verified 10/26/21 07:29 Review of Systems ROS Statement: Those systems with pertinent positive or pertinent negative responses have been documented in the HPI. ROS Other: All systems not noted in ROS Statement are negative. Past Medical History Past Medical History: GERD/Reflux Additional Past Medical History / Comment(s): IBS History of Any Multi-Drug Resistant Organisms: None Reported Past Surgical History: Cholecystectomy Additional Past Surgical History / Comment(s): SARAH FUNDOPLASTY ,Tumor removal from neck as a child, colonoscopy, EGD Past Anesthesia/Blood Transfusion Reactions: No Reported Reaction Past Psychological History: No Psychological Hx Reported Smoking Status: Never smoker Past Alcohol Use History: Rare Past Drug Use History: None Reported - Past Family History Mother Family Medical History: No Reported History General Exam Limitations: no limitations General appearance: alert, in no apparent distress Head exam: Present: atraumatic, normocephalic, normal inspection Eye exam: Present: normal appearance, PERRL, EOMI. Absent: scleral icterus, conjunctival injection, periorbital swelling ENT exam: Present: normal exam, normal oropharynx, mucous membranes moist Neck exam: Present: normal inspection, full ROM. Absent: tenderness, meningismus, lymphadenopathy Respiratory exam: Present: normal lung sounds bilaterally. Absent: respiratory distress, wheezes, rales, rhonchi, stridor Cardiovascular Exam: Present: regular rate, normal rhythm, normal heart sounds. Absent: systolic murmur, diastolic murmur, rubs, gallop, clicks Extremities exam: Present: other (Upper and lower extremity strength equal bilaterally, neurovascular intact with equal color equal warmth equal pulses) Back exam: Present: full ROM. Absent: tenderness, muscle spasm, paraspinal tenderness, vertebral tenderness Neurological exam: Present: alert, oriented X3, CN II-XII intact, reflexes normal. Absent: motor sensory deficit Skin exam: Present: warm, dry, intact, normal color. Absent: rash Course Vital Signs 10/26/21 07:25 Temperature 98.0 F Pulse Rate 104 H Respiratory 18 Rate Blood Pressure 155/93 O2 Sat by Pulse 100 Oximetry Medical Decision Making - Medical Decision Making Patient had currently been worked up by neurology he's had extensive imaging with no specific findings to stay. Patient does not have any reproducible pain. This seems to be related to radiculopathy type symptoms. Patient placed on course steroids, pain control until his follow-up appointment this week return parameters were discussed. Disposition Clinical Impression: Lumbar radiculopathy, acute Disposition: HOME SELF-CARE Condition: Stable Instructions (If sedation given, give patient instructions): Lumbar Radiculop athy (ED), Cervical Radiculopathy (ED) Additional Instructions: Please return to the Emergency Department if symptoms worsen or any other concerns. Prescriptions: predniSONE 50 mg PO DAILY #5 tab Is patient prescribed a controlled substance at d/c from ED?: No Referrals: Vibha Padilla [Primary Care Provider] - 1-2 days Time of Disposition: 07:57
[2021-10-26 08:13] VITALS: BP 135/84; PULSE 89; TEMP 98.3
== END 2021-10-26 08:12 | disposition home or self-care (01) ==
LOC: EC 07:23
DX: M54.16 Radiculopathy, lumbar region (principal); K21.9 Gastro-esophageal reflux disease without esophagitis; Z79.83 Long term (current) use of bisphosphonates
CPT/HCPCS: 99283

== ENCOUNTER 2022-04-18 07:16 | Day surgery (SDC) | payer OTHER ==
[2022-04-14 10:26] VITALS: BMI 23.7
[2022-04-18] MEDS ORDERED: LACTATED RINGERS 1,000 ML IV SCH (07:56)
[2022-04-18] MEDS ORDERED: LIDOCAINE 1% (10MG/ML) FOR IV START INTRADERMA PRN (07:56)
[2022-04-18] MEDS ORDERED: LACTATED RINGERS 1,000 ML IV ONE (07:59)
[2022-04-18 08:02] VITALS: TEMP 97.8
[2022-04-18] MEDS ORDERED: PROPOFOL 10 MG/ML 20 ML VIAL IV ONE (08:47)
--- NOTE | 2022-04-18 08:59 | P.PCN ---
Date of Procedure: 04/18/22 Procedure(s) Performed: BRIEF HISTORY: Patient is a 36-year-old, pleasant, white male scheduled for an upper endoscopy as a part of evaluation of atypical chest pain and GERD of 2 months duration.. He has long-standing history of GERD and is status post Tae fundoplication 3 years ago. Lately has been having chest pain almost on a daily basis despite being on Prilosec 20 mg daily. PROCEDURE PERFORMED: Esophagogastroduodenoscopy with biopsy. PREOPERATIVE DIAGNOSIS: Long-standing history of GERD/atypical chest pain of 2 months duration. IV sedation per anesthesia. PROCEDURE: After informed consent was obtained, the patient was brought into the endoscopy unit. IV sedation was administered by Anesthesia under continuous monitoring. Initially the Olympus GIF-140 video endoscope was inserted into the mouth. Esophagus intubated without any difficulty. It was gradually advanced into the stomach and duodenum and carefully examined. The bulb and the second part of the duodenum appeared normal. The scope at this time was withdrawn to the stomach, adequately insufflated with air, and upon careful examination, mucosa of the antrum had linear EUS of erythema noted and biopsies were done from this area. Mucosa of the, body, cardia and the fundus appeared normal. The scope was then withdrawn into the esophagus. Small hiatal hernia noted. The GE junction was located at 39 cm from the incisors. The esophagus appeared normal. There were linear erosions in the distal esophagus consistent with LA grade B reflux esophagitis. Biopsies were done from the distal esophagus. Rest of esophagus appeared normal and the patient tolerated the procedure well. IMPRESSION: 1. Superficial erosions in the distal esophagus consistent with LA grade B reflux esophagitis. 2. Small hiatal hernia and mild antral gastritis. RECOMMENDATIONS: The findings of this examination were discussed with the patient as well as her family. She was advised to follow with the biopsy results. Recommended to increase omeprazole to 20 mg twice daily and follow antireflux measures..
[2022-04-18] MEDS ORDERED: IV FLUID CONTINUATION 750 ML IV ONE (09:01)
[2022-04-18 09:28] VITALS: BP 120/72; PULSE 89; RESP 16
== END 2022-04-18 09:38 | disposition home or self-care (01) ==
LOC: ORWHC2ENDO 07:16
PROVIDERS: ATTEND Internal Medicine Gastroenterology
DX: K29.50 Unspecified chronic gastritis without bleeding (principal); K31.9 Disease of stomach and duodenum, unspecified; K44.9 Diaphragmatic hernia without obstruction or gangrene; K21.00 Gastro-esophageal reflux disease with esophagitis, without bleeding; Z79.52 Long term (current) use of systemic steroids; Z79.83 Long term (current) use of bisphosphonates; Z90.49 Acquired absence of other specified parts of digestive tract; Z98.890 Other specified postprocedural states
CPT/HCPCS: 43239; J2704; 88305

== ENCOUNTER 2023-04-14 10:23 | Day surgery (SDC) | payer OTHER ==
[2023-04-12 08:55] VITALS: BMI 24.3
[~2023-04-14 10:23] MED LIST changes: -LIDOCAINE 1% (10MG/ML) FOR IV START INTRADERMA PRN
[2023-04-14 12:13] VITALS: TEMP 98.9
[2023-04-14] MEDS ORDERED: LIDOCAINE 1% INJ 10MG/ML (20 ML MDV) ONE (12:23)
[2023-04-14] MEDS ORDERED: PROPOFOL 10 MG/ML 20 ML VIAL IV ONE (12:23)
[2023-04-14] MEDS ORDERED: fentaNYL (PF) 50 MCG/ML 2 ML AMP ONE (12:23)
--- NOTE | 2023-04-14 12:33 | P.PCN ---
Date of Procedure: 04/14/23 Procedure(s) Performed: BRIEF HISTORY: Patient is a 37-year-old, pleasant, white male scheduled for an upper endoscopy as a part of evaluation of long-standing history of GERD. Been on omeprazole 20 mg daily and still remains symptomatic. Has break through symptoms almost on a daily basis. He scheduled for an upper endoscopy to rule out complicated reflux disease. PROCEDURE PERFORMED: Esophagogastroduodenoscopy PREOPERATIVE DIAGNOSIS: Long-standing history of GERD with worsening symptoms lately IV sedation per anesthesia. PROCEDURE: After informed consent was obtained, the patient was brought into the endoscopy unit. IV sedation was administered by Anesthesia under continuous monitoring. Initially the Olympus GIF-140 video endoscope was inserted into the mouth. Esophagus intubated without any difficulty. It was gradually advanced into the stomach and duodenum and carefully examined. The bulb and the second part of the duodenum appeared normal. The scope at this time was withdrawn to the stomach, adequately insufflated with air, and upon careful examination, mucosa of the antrum, body, cardia and the fundus appeared normal. The scope was then withdrawn into the esophagus. The GE junction was located at 39 cm from the incisors. Small hiatal hernia. There were linear erosions in the distal esophagus consistent with LA grade B reflux esophagitis. Rest of the esophagus appeared normal. The patient tolerated the procedure well. IMPRESSION: 1. Linear erosions in the distal esophagus consistent with LA grade B reflux esophagitis. 2. Small hiatal hernia. RECOMMENDATIONS: The findings of this examination were discussed with the patient as well as his family. He was advised to increase omeprazole to 20 mg twice daily to be taken half hour before breakfast and dinnertime and follow antireflux measures. Follow up in office in 6 weeks.
[2023-04-14 13:02] VITALS: BP 128/79; PULSE 103; RESP 17
== END 2023-04-14 13:30 | disposition home or self-care (01) ==
LOC: ORWHC2ENDO 10:23
PROVIDERS: ATTEND Internal Medicine Gastroenterology
DX: K22.10 Ulcer of esophagus without bleeding (principal); K21.9 Gastro-esophageal reflux disease without esophagitis; K44.9 Diaphragmatic hernia without obstruction or gangrene; K58.9 Irritable bowel syndrome, unspecified; Z79.899 Other long term (current) drug therapy
CPT/HCPCS: 43235; J2001; J3010; J2704

== ENCOUNTER → 2023-05-08 | Outpatient (CLI) | payer OTHER ==
--- NOTE | 2023-05-08 11:28 | FL ---
EXAMINATION TYPE: FL UGI air w esophagus DATE OF EXAM: 05/08/2023 COMPARISON: NONE HISTORY: 38-year-old male R13.10 dysphagia K21.00 GERD TECHNIQUE: A double contrast UGI study is performed. A total of 2 minutes for seconds of fluoroscop ic time was utilized during procedure and 92 images obtained. Total dose area product (DAP) in uGy*m? , mGy*cm? (or similar): 436.9. FINDINGS: The swallowing mechanism is normal and hypopharyngeal anatomy is preserved. The cervical and thoracic portions have a normal course and caliber and normal motility. The mucosa is normal and no persistent filling defect is encountered. There is a recurrent sliding hernia which varies in size between tiny and moderate in size. Moderate gastroesophageal reflux is seen with turning and Valsalva maneuvers. The stomach shows normal distensibility, peristalsis, and mucosal folds. No evidence of any mass or ulcer disease. The duodenal bulb, sweep, and proximal small bowel loops are unremarkable. IMPRESSION: Recurrence of a sliding hiatal hernia. Depending on the patient's position and breathing, it enlarges up to small-moderate in size. Moderate gastroesophageal reflux is also seen during the c ourse of the exam. Otherwise, unremarkable esophagram and upper GI examination.
== END | disposition home or self-care (01) ==
LOC: RADUSWWP 09:59
PROVIDERS: ATTEND Surgery
DX: K21.00 Gastro-esophageal reflux disease with esophagitis, without bleeding (principal); K44.9 Diaphragmatic hernia without obstruction or gangrene; R13.10 Dysphagia, unspecified
CPT/HCPCS: 74246